=== PATIENT | female | born 1940 | race Caucasian/White ===

== ENCOUNTER 2016-04-01 15:40 | Inpatient (IN) | payer MEDICARE ==
[2016-04-01] MEDS ORDERED: MORPHINE SULFATE 2 MG/ML SYRINGE IVP STA (16:23)
[2016-04-01] MEDS ORDERED: ONDANSETRON 4 MG/2 ML VIAL IVP STA (16:23)
[2016-04-01] MEDS ORDERED: SODIUM CHLORIDE 0.9% 500 ML IV STA (16:23)
--- NOTE | 2016-04-01 16:27 | ED ---
Abdominal Pain HPI - General Chief Complaint: Abdominal Pain Stated Complaint: Abdominal pain Time Seen by Provider: 04/01/16 16:13 Source: patient, RN notes reviewed Mode of arrival: wheelchair Limitations: no limitations - History of Present Illness Initial Comments: 75-year-old female presents emergency Department chief complaint of gastric, right upper quadrant abdominal pain started last night. Patient states this is severe 9/10 pain. Patient states it radiates to her back. Patient states she' s never had in the past. Patient did admit to having history kidney stones no she denies any abdominal surgeries. Patient states she's had some nausea, vomiting. Denies any change in bowel habits including diarrhea or constipation. Denies any melena or hematochezia. Patient states that that nothing makes the pain feel better or worse. She denies any dysuria, hematuria or urinary frequency. Patient denies any fever or chills. Patient states that she did fall on the bathroom and emergency waiting room and states that she struck her left side. Patient is complaining of left rib pain. Denies any loss conscious, headache, neck pain or any dizziness. Patient has any blurred vision or any facial pain. - Related Data Home Medications Medication Instructions Recorded Confirmed Montelukast Sodium [Singulair] 10 mg PO DAILY 12/12/13 12/13/13 Potassium Chloride [Klor-Con 10] 10 meq PO BID 12/12/13 12/13/13 Ubidecarenone [Coq-10] 60 mg PO DAILY 12/12/13 12/13/13 Previous Rx's Medication Instructions Recorded Amoxic-Pot Clav 875-125Mg 1 each PO Q12HR #10 tab 12/24/13 [Augmentin 875-125] Budesonide [Pulmicort] 0.5 mg INHALATION RT-BID #60 nebu 12/24/13 Diltiazem Cd [Cardizem CD] 180 mg PO DAILY #30 cap.er.24h 12/24/13 Furosemide [Lasix] 40 mg PO DAILY #30 tab 12/24/13 Ipratropium/Albuterol Sulfate 3 ml INHALATION QID #100 neb 12/24/13 [Duoneb 0.5 mg-3 mg/3 ml Soln] Nicotine 14Mg/24Hr Patch [Habitrol] 1 patch TRANSDERM Q24H #21 patch 12/24/13 predniSONE 20 mg PO DIRECTED #20 tab 12/24/13 Allergies Allergy/AdvReac Type Severity Reaction Status Date / Time hydromorphone HCl Allergy Unknown Verified 04/01/16 15:58 [From Dilaudid] iodine Allergy Swelling Verified 04/01/16 15:58 metolazone Allergy Unknown Verified 04/01/16 15:58 shellfish derived Allergy Unknown Verified 04/01/16 15:58 Review of Systems ROS Statement: Those systems with pertinent positive or pertinent negative responses have been documented in the HPI. ROS Other: All systems not noted in ROS Statement are negative. Past Medical History Past Medical History: Atrial Flutter, COPD, Hypertension, Osteoarthritis (OA), Pneumonia, Seizure Disorder Additional Past Medical History / Comment(s): home O2 dependent History of Any Multi-Drug Resistant Organisms: None Reported Past Surgical History: No Surgical Hx Reported Past Psychological History: No Psychological Hx Reported Smoking Status: Former smoker Past Alcohol Use History: Occasional Past Drug Use History: None Reported General Exam Limitations: no limitations General appearance: alert, in no apparent distress Head exam: Present: atraumatic, normocephalic, normal inspection Eye exam: Present: normal appearance, PERRL, EOMI. Absent: scleral icterus, conjunctival injection, periorbital swelling ENT exam: Present: normal exam, normal oropharynx, mucous membranes moist, TM's normal bilaterally Neck exam: Present: normal inspection, full ROM. Absent: tenderness, meningismus, lymphadenopathy Respiratory exam: Present: chest wall tenderness (Moderate left rib tenderness) , decreased breath sounds, other (Nasal cannula in place). Absent: normal lung sounds bilaterally, respiratory distress, wheezes, rales, rhonchi, stridor Cardiovascular Exam: Present: regular rate, normal rhythm, normal heart sounds. Absent: systolic murmur, diastolic murmur, rubs, gallop, clicks GI/Abdominal exam: Present: soft, tenderness (Moderate to severe right upper quadrant tenderness), normal bowel sounds. Absent: distended, guarding, rebound , rigid Back exam: Absent: CVA tenderness (R), CVA tenderness (L) Neurological exam: Present: alert, oriented X3, CN II-XII intact, reflexes normal, other (Finger to nose intact bilaterally without overshooting.). Absent : motor sensory deficit Skin exam: Present: warm, dry, intact, normal color. Absent: rash Course Vital Signs 04/01/16 04/01/16 04/01/16 15:55 18:35 18:45 Temperature 97.9 F Pulse Rate 93 121 H Respiratory 20 20 Rate Blood Pressure 136/97 165/74 O2 Sat by Pulse 92 L 70 L 77 L Oximetry 04/01/16 04/01/16 04/01/16 18:50 18:54 19:01 Temperature Pulse Rate 113 H Respiratory 18 Rate Blood Pressure O2 Sat by Pulse 72 L 81 L 95 Oximetry 04/01/16 19:03 Temperature Pulse Rate 115 H Respiratory 18 Rate Blood Pressure O2 Sat by Pulse 96 Oximetry - Reevaluation(s) Reevaluation #1: 04/01/16 18:38 Patient was reevaluated at this time patient has having shallow breathing with mild decrease in her pulse ox. Patient has had problems with narcotics in the past. Patient we given 0.2 of Narcan. Reevaluation #2: 04/01/16 20:03 Patient's is arousable at this time. Patient oxygen saturation has improved. Patient is coherent. Patient will be admitted to the hospital. Family was updated. Medical Decision Making - Lab Data Result diagrams: 04/01/16 17:58 04/01/16 17:58 Lab Results 04/01/16 04/01/16 04/01/16 Range/Units 16:52 17:58 17:58 WBC 15.0 H (3.8-10.6) k/uL RBC 5.40 (3.80-5.40) m/uL Hgb 14.9 (11.4-16.0) gm/dL Hct 49.0 H (34.0-46.0) % MCV 90.6 (80.0-100.0) fL MCH 27.6 (25.0-35.0) pg MCHC 30.4 L (31.0-37.0) g/dL RDW 15.0 (11.5-15.5) % Plt Count 231 (150-450) k/uL Neutrophils % 89 % Lymphocytes % 4 % Monocytes % 5 % Eosinophils % 1 % Basophils % 0 % Neutrophils # 13.3 H (1.3-7.7) k/uL Lymphocytes # 0.6 L (1.0-4.8) k/uL Monocytes # 0.7 (0-1.0) k/uL Eosinophils # 0.2 (0-0.7) k/uL Basophils # 0.0 (0-0.2) k/uL Hypochromasia Marked PT 10.0 (9.0-12.0) sec INR 1.0 (<1.1) APTT 22.8 (22.0-30.0) sec Sodium (137-145) mmol/L Potassium (3.5-5.1) mmol/L Chloride (98-107) mmol/L Carbon Dioxide (22-30) mmol/L Anion Gap mmol/L BUN (7-17) mg/dL Creatinine (0.52-1.04) mg/dL Est GFR (MDRD) Af Amer (>60 ml/min/1.73 sqM) Est GFR (MDRD) Non-Af (>60 ml/min/1.73 sqM) Glucose (74-99) mg/dL Calcium (8.4-10.2) mg/dL Total Bilirubin (0.2-1.3) mg/dL AST (14-36) U/L ALT (9-52) U/L Alkaline Phosphatase (38-126) U/L Total Protein (6.3-8.2) g/dL Albumin (3.5-5.0) g/dL Amylase (30-110) U/L Lipase (23-300) U/L Urine Color Light Yellow Urine Appearance Clear (Clear) Urine pH 7.5 (5.0-8.0) Ur Specific [place] 1.006 (1.001-1.035) Urine Protein 2+ H (Negative) Urine Glucose (UA) Negative (Negative) Urine Ketones Negative (Negative) Urine Blood Trace H (Negative) Urine Nitrate Negative (Negative) Urine Bilirubin Negative (Negative) Urine Urobilinogen <2.0 (<2.0) mg/dL Ur Leukocyte Esterase Negative (Negative) Urine RBC 1 (0-5) /hpf Urine WBC 1 (0-5) /hpf Ur Squamous Epith Cells 1 (0-4) /hpf Hyaline Casts 1 (0-2) /lpf Urine Mucus Rare H (None) /hpf 04/01/16 Range/Units 17:58 WBC (3.8-10.6) k/uL RBC (3.80-5.40) m/uL Hgb (11.4-16.0) gm/dL Hct (34.0-46.0) % MCV (80.0-100.0) fL MCH (25.0-35.0) pg MCHC (31.0-37.0) g/dL RDW (11.5-15.5) % Plt Count (150-450) k/uL Neutrophils % % Lymphocytes % % Monocytes % % Eosinophils % % Basophils % % Neutrophils # (1.3-7.7) k/uL Lymphocytes # (1.0-4.8) k/uL Monocytes # (0-1.0) k/uL Eosinophils # (0-0.7) k/uL Basophils # (0-0.2) k/uL Hypochromasia PT (9.0-12.0) sec INR (<1.1) APTT (22.0-30.0) sec Sodium 143 (137-145) mmol/L Potassium 4.0 (3.5-5.1) mmol/L Chloride 95 L (98-107) mmol/L Carbon Dioxide 36 H (22-30) mmol/L Anion Gap 12 mmol/L BUN 11 (7-17) mg/dL Creatinine 0.66 (0.52-1.04) mg/dL Est GFR (MDRD) Af Amer >60 (>60 ml/min/1.73 sqM) Est GFR (MDRD) Non-Af >60 (>60 ml/min/1.73 sqM) Glucose 133 H (74-99) mg/dL Calcium 8.7 (8.4-10.2) mg/dL Total Bilirubin 0.9 (0.2-1.3) mg/dL AST 34 (14-36) U/L ALT 31 (9-52) U/L Alkaline Phosphatase 110 (38-126) U/L Total Protein 7.8 (6.3-8.2) g/dL Albumin 3.9 (3.5-5.0) g/dL Amylase 56 (30-110) U/L Lipase 57 (23-300) U/L Urine Color Urine Appearance (Clear) Urine pH (5.0-8.0) Ur Specific [place] (1.001-1.035) Urine Protein (Negative) Urine Glucose (UA) (Negative) Urine Ketones (Negative) Urine Blood (Negative) Urine Nitrate (Negative) Urine Bilirubin (Negative) Urine Urobilinogen (<2.0) mg/dL Ur Leukocyte Esterase (Negative) Urine RBC (0-5) /hpf Urine WBC (0-5) /hpf Ur Squamous Epith Cells (0-4) /hpf Hyaline Casts (0-2) /lpf Urine Mucus (None) /hpf Disposition Clinical Impression: Cholelithiasis, COPD (chronic obstructive pulmonary disease), Abdominal pain Disposition: ADMITTED IP TO THIS HOSP
[2016-04-01 17:03] LABS: Appearance,Urine Clear (Clear); Bilirubin,Urine Negative (Negative); Glucose,Urine (UA) Negative (Negative); Ketones,Urine Negative (Negative); Leukocyte Esterase,Urine Negative (Negative); Mucus,Urine Rare /hpf; Nitrite,Urine Negative (Negative); PH, Urine 7.5 (5.0-8.0); Particle Count 1131; Protein,Urine 2+ (Negative); RBC,Urine 1 /hpf (0-5); Specific Gravity,Urine 1.006 (1.001-1.035); Squamous Epithelial Cell,Urine 1 /hpf (0-4); UA Billing (MACRO vs. MICRO) MICRO; Urobilinogen,Urine <2.0 mg/dL (<2.0); WBC,Urine 1 /hpf (0-5)
[2016-04-01 18:11] LABS: Basophils % (A) 0 %; CHCM 29.9; Eosinophils # (A) 0.2 k/uL (0-0.7); Eosinophils % (A) 1 %; HDW 2.84; HGB 14.9 gm/dL (11.4-16.0); Hypochromasia Marked; Luc % (Auto) 1; Lymphocytes # (A) 0.6 k/uL (1.0-4.8); Lymphocytes % (A) 4 %; MCH 27.6 pg (25.0-35.0); MCHC 30.4 g/dL (31.0-37.0); MCV 90.6 fL (80.0-100.0); Mean Platelet Volume 6.7; Monocytes # (A) 0.7 k/uL (0-1.0); Monocytes % (A) 5 %; Neutrophils # (A) 13.3 k/uL (1.3-7.7); Neutrophils % (A) 89 %; WBC (Perox) 15.33
[2016-04-01 18:32] LABS: Partial Thromboplastin Time 22.8 sec (22.0-30.0)
[2016-04-01 18:35] LABS: ALT 31 U/L (9-52); AST 34 U/L (14-36); Alkaline Phosphatase 110 U/L (38-126); Amylase 56 U/L (30-110); Anion Gap 12 mmol/L; Blood Urea Nitrogen 11 mg/dL (7-17); Calcium 8.7 mg/dL (8.4-10.2); Carbon Dioxide 36 mmol/L (22-30); Chloride 95 mmol/L (98-107); Glucose 133 mg/dL (74-99); Non-African American GFR(MDRD) >60 (>60 ml/min/1.73 sqM); Sodium 143 mmol/L (137-145); Total Bilirubin 0.9 mg/dL (0.2-1.3); Total Protein 7.8 g/dL (6.3-8.2)
[2016-04-01] MEDS: NALOXONE 0.4 MG/ML 1 ML VIAL IV STA ×4 (18:38→19:00)
--- NOTE | 2016-04-01 18:51 | US ---
EXAMINATION TYPE: US abdomen limited DATE OF EXAM: 04/01/2016 6:37 PM COMPARISON: EXAMINATION TYPE: US abdomen limited DATE OF EXAM: 04/01/2016 6:37 PM COMPARISON: NONE CLINICAL HISTORY: US- Epigastric pain radiating to back.. EXAM MEASUREMENTS: Liver Length: 19.0 cm Gallbladder Wall: 0.5 cm CBD: 1.0 cm Right Kidney: 10.1 x 4.7 x 6.5 cm ANATOMY: TECHNOLOGIST IMPRESSION: *limited due to body habitus and immobility* Pancreas: enlarged Liver: Enlarged, diffusely inhomogeneous. Solid hyperechoic lesion at the inferior right lobe = 1.2 x 1.4 x 1.5 cm. ? hemangioma. Gallbladder: Multiple gallstones, thickened wall. No pericholecystic fluid is seen. Evidence for sonographic Cavazos's sign: ? ( pt. Has now been given morphine and is sleeping. CBD: enlarged Right Kidney: wnl IMPRESSION: Normal Values: Liver Length: < 16cm wnl, 17-18cm upper limits, >18cm enlarged Renal Length = 9 - 12cm GB Wall: < 0.3cm CBD: < 0.6cm or < 1.0cm post cholecystectomy IMPRESSION: There are multiple gallstones. No dilated ducts within the liver. There is a hyperechoic 1.5 cm area in the right lobe of the liver consistent with a hemangioma. No evidence of a pancreatic mass. Normal Values: Liver Length: < 16cm wnl, 17-18cm upper limits, >18cm enlarged Renal Length = 9 - 12cm GB Wall: < 0.3cm CBD: < 0.6cm or < 1.0cm post cholecystectomy Portal Vein Diameter: < 13mm Portal Vein Flow Velocity: between 16 and 40cm/sec Hepatic Artery resistive Index: between 0.55 and 0.8 Hepatic Artery Acceleration Time: <0.08 seconds Splenic Vein Diameter: < 10mm
[2016-04-01] MEDS ORDERED: NALOXONE 0.4 MG/ML 1 ML VIAL IV PRN (20:04)
[2016-04-01] MEDS ORDERED: ONDANSETRON 4 MG/2 ML VIAL IVP PRN (20:04)
[2016-04-01] MEDS ORDERED: PIPERACILLIN-TAZOBACTAM 3.375 GM in DEXTROSE/WATER 1 50ML.BAG IVPB STA (20:06)
[2016-04-01] MEDS ORDERED: FUROSEMIDE 10 MG/ML 4 ML VIAL IV STA (20:07)
--- NOTE | 2016-04-01 20:20 | XR ---
EXAMINATION TYPE: XR ribs LT w pa chest xray DATE OF EXAM: 04/01/2016 7:56 PM COMPARISON: 12/18/2013 HISTORY: Left rib pain after a fall TECHNIQUE: 5 views FINDINGS: Heart is enlarged. There is pulmonary vascular congestion. There is no pneumothorax. Exam i s limited by the obesity. There appears to be a nondisplaced fracture of an anterior lower left rib, approximately the ninth rib. IMPRESSION: Congestive heart failure. Nondisplaced left rib fracture that is probably the ninth rib. No pneumothorax. The heart failure is new compared to last exam.
--- NOTE | 2016-04-01 20:21 | XR ---
EXAMINATION TYPE: XR KUB DATE OF EXAM: 04/01/2016 7:56 PM COMPARISON: NONE HISTORY: Abdominal pain after a fall TECHNIQUE: 2 views FINDINGS: There is no sign of intestinal obstruction or pneumoperitoneum. Fecal pattern is normal. Th ere is no sign of a mass. There are infiltrates at the lung bases with cardiomegaly. IMPRESSION: Nonacute abdomen. Cardiomegaly with basilar pulmonary infiltrates.
--- NOTE | 2016-04-01 21:30 | CT ---
EXAMINATION TYPE: CT brain wo con DATE OF EXAM: 04/01/2016 9:15 PM COMPARISON: NONE HISTORY: Fall today with head injury. CT DLP: 1023.50 mGycm Automated exposure control for dose reduction was used. FINDINGS: The ventricles have normal size. There is no mass effect or midline shift. There is no sign of intrac ranial hemorrhage. The calvarium is intact. IMPRESSION: Negative unenhanced head CT scan.
[2016-04-01 22:37] VITALS: BMI 38.2
[2016-04-01] MEDS: SODIUM CHLORIDE 0.9% 1,000 ML IV SCH (23:36)
[2016-04-02 01:02] LABS: Glucose,Whole Blood 163 mg/dL (75-99)
[2016-04-02 02:37] LABS: Creatine Kinase MB 4.7 ng/mL (0.0-2.4)
[2016-04-02 02:38] LABS: Troponin I 0.254 ng/mL (0.000-0.034)
[2016-04-02 03:25] LABS: ABG PH 7.07 (7.35-7.45)
[2016-04-02 03:26] LABS: ABG Base Excess 4.6 mmol/L; ABG HCO3 34 mmol/L (21-25); ABG PCO2 123 mmHg (35-45); ABG PO2 119 mmHg (83-108); ABG TCO2 38 mmol/L (19-24)
[2016-04-02 03:32] LABS: ABG PCO2 102 mmHg (35-45); ABG PH 7.16 (7.35-7.45)
[2016-04-02 03:33] LABS: ABG HCO3 35 mmol/L (21-25); ABG PO2 90 mmHg (83-108); ABG TCO2 39 mmol/L (19-24)
[2016-04-02 04:09] LABS: Glucose,Whole Blood 167 mg/dL (75-99)
[2016-04-02 06:37] LABS: ABG Base Excess 6.3 mmol/L; ABG HCO3 33 mmol/L (21-25); ABG PCO2 76 mmHg (35-45); ABG PH 7.26 (7.35-7.45); ABG PO2 61 mmHg (83-108); ABG TCO2 35 mmol/L (19-24)
--- NOTE | 2016-04-02 07:42 | XR ---
EXAMINATION TYPE: XR chest 1V portable DATE OF EXAM: 04/02/2016 6:06 AM Comparison: 04/01/2016 Clinical History: 75-year-old female ICU follow-up Findings: Heart remains mildly enlarged. Atherosclerotic arch calcifications. Diffuse interstitial opacities pe rsist. Left base is underpenetrated and suboptimally evaluated. Impression: Findings suggest continued CHF with interstitial pulmonary edema. The left base is underpenetrated an d not optimally assessed.
--- NOTE | 2016-04-02 09:16 | P.GSCN ---
History of Present Illness Consult date: 04/02/16 History of present illness: Patient is a 75-year-old white female who presented yesterday to the emergency primary with a complaint of right upper quadrant abdominal pain. The patient fell in the emergency room to the bathroom at this time she fell and hit her left side and the median complain of pain in the left side. She was given pain medication after which she became lethargic and despite Narcan required BiPAP and was admitted to the intensive care unit. The patient today is more responsive and continues to complain of some mild right upper quadrant discomfort. She states that the pain started after she had eaten several pieces of bread. The patient had an ultrasound performed which revealed gallstones. Her liver function studies are within normal limits. She does have some leukocytosis. Review of Systems - Constitutional Reports as per HPI - Cardiovascular Reports as per HPI - Respiratory Respiratory Comment(s): Prior smoker COPD Home oxygen dependent - Gastrointestinal Reports as per HPI - Genitourinary Genitourinary Comment(s): Prior history of kidney stone Past Medical History Past Medical History: Atrial Flutter, COPD, Hypertension, Osteoarthritis (OA), Pneumonia Additional Past Medical History / Comment(s): home O2 dependent. 3 liters " Stats mid to higher 80's at home" History of Any Multi-Drug Resistant Organisms: None Reported Past Surgical History: No Surgical Hx Reported Additional Past Anesthesia/Blood Transfusion Reaction / Comm: No blood, anesthesia before when " teeth were pulled" per family Past Psychological History: No Psychological Hx Reported Smoking Status: Former smoker Past Alcohol Use History: Occasional Past Drug Use History: None Reported Medications and Allergies Home Medications Medication Instructions Recorded Confirmed Type Montelukast Sodium [Singulair] 10 mg PO DAILY 12/12/13 04/01/16 History Potassium Chloride [Klor-Con 10] 10 meq PO BID 12/12/13 04/01/16 History Ubidecarenone [Coq-10] 60 mg PO DAILY 12/12/13 04/01/16 History Allergies Allergy/AdvReac Type Severity Reaction Status Date / Time hydromorphone HCl Allergy Unknown Verified 04/01/16 15:58 [From Dilaudid] iodine Allergy Swelling Verified 04/01/16 15:58 metolazone Allergy Unknown Verified 04/01/16 15:58 morphine Allergy Dyspnea Verified 04/01/16 20:06 shellfish derived Allergy Unknown Verified 04/01/16 15:58 Surgical - Exam Vital Signs Temp Pulse Resp BP Pulse Ox 97.9 F 93 20 136/97 92 L 04/01/16 15:55 04/01/16 15:55 04/01/16 15:55 04/01/16 15:55 04/01/16 15:55 - General obese - Respiratory Decreased breath sounds at bases Patient on BiPAP - Cardiovascular Rhythm: regular Heart Sounds: normal: S1, S2 - Abdomen Mild tender right upper quadrant Abdomen: soft, bowel sounds - Neurologic Somewhat lethargic Results - Labs 04/01/16 17:58 04/01/16 17:58 Abnormal Lab Results - Last 24 Hours (Table) 04/02/16 04/02/16 04/02/16 Range/Units 00:42 01:37 01:37 D-Dimer 7.23 H (<0.60) mg/L FEU ABG pH (7.35-7.45) ABG pCO2 (35-45) mmHg ABG pO2 (83-108) mmHg ABG HCO3 (21-25) mmol/L ABG Total CO2 (19-24) mmol/L ABG O2 Saturation (94-97) % POC Glucose (mg/dL) 163 H (75-99) mg/dL Total Creatine Kinase 188 H (30-135) U/L CK-MB (CK-2) 4.7 H* (0.0-2.4) ng/mL Troponin I 0.254 H* (0.000-0.034) ng/mL 04/02/16 04/02/16 04/02/16 Range/Units 02:10 03:07 04:08 D-Dimer (<0.60) mg/L FEU ABG pH 7.07 L* 7.16 L* (7.35-7.45) ABG pCO2 123 H* 102 H* (35-45) mmHg ABG pO2 119 H (83-108) mmHg ABG HCO3 34 H 35 H (21-25) mmol/L ABG Total CO2 38 H 39 H (19-24) mmol/L ABG O2 Saturation 93.0 L (94-97) % POC Glucose (mg/dL) 167 H (75-99) mg/dL Total Creatine Kinase (30-135) U/L CK-MB (CK-2) (0.0-2.4) ng/mL Troponin I (0.000-0.034) ng/mL 04/02/16 Range/Units 06:30 D-Dimer (<0.60) mg/L FEU ABG pH 7.26 L (7.35-7.45) ABG pCO2 76 H* (35-45) mmHg ABG pO2 61 L (83-108) mmHg ABG HCO3 33 H (21-25) mmol/L ABG Total CO2 35 H (19-24) mmol/L ABG O2 Saturation 86.0 L (94-97) % POC Glucose (mg/dL) (75-99) mg/dL Total Creatine Kinase (30-135) U/L CK-MB (CK-2) (0.0-2.4) ng/mL Troponin I (0.000-0.034) ng/mL - Imaging US - abdomen: report reviewed Assessment and Plan Plan: Impression/plan: 1. Left rib fracture nondisplaced no pneumothorax 2. COPD 3. Biliary colic 4. Bibasilar pulmonary infiltrates 5. Negative unenhanced head CT 6. Very sensitive to narcotic medications Plan: 1. Medical stabilization 2. Probable laparoscopic possible open cholecystectomy in near future
--- NOTE | 2016-04-02 09:18 | P.PN ---
Progress Note - Text Should be noted that additional evaluation of the patient's studies reveal that she does have a left rib fracture on the ninth rib Additionally her d-dimer is elevated at 7.23 Her ABG pH was low at 7.07 is now 7.26 CK-MB is 4.7 Troponin 0.254 Operative intervention is not urgent, she will be on standby and await medical clearance.
[2016-04-02] MEDS ORDERED: IPRATROPIUM-ALBUTEROL 3 ML NEB INHALATION PRN (14:30)
--- NOTE | 2016-04-02 14:53 | P.CNPUL ---
History of Present Illness Consult date: 04/02/16 Reason for consult: hypoxemia Chief complaint: Right upper quadrant abdominal pain, altered mental status History of present illness: This is a 75-year-old female who presented to the emergency department complaining of right upper quadrant abdominal pain. The pain apparently started 2 nights ago. She states it was radiating to her back. The patient was given pain medicine in the emergency department and became confused. She did have a fall in the emergency waiting room and hit her left side. The patient was found to have a left rib fracture. The patient was given multiple doses of Narcan. She was found to have respiratory acidosis and placed on BiPAP. The patient's mental status is improving. The patient states that she saw Dr. GILBERT Romano in the office "a while ago." She states she was told she has COPD and was started on nebulizer and inhalers. She does not know which inhalers she uses. The patient states that she hasn't been to a doctor in a long time. She states she doesn't go to the doctor unless she is very sick. The patient states that she has been told in the past that she might have obstructive sleep apnea but has never been tested. She denies fevers and chills at home. She denies shortness of breath. The patient also has a history of atrial fibrillation. Per Dr. Romano's consult from 2013 the patient had a pulmonary function test in 2006 which showed an FEV1 of 1 L. She also had an elevated IgE level of 3310. The patient is also a former smoker. She states she quit in her 60s and started smoking when she was 17 years old. She used to smoke 3 packs per day. Review of Systems All systems: negative Past Medical History Past Medical History: Atrial Flutter, COPD, Hypertension, Osteoarthritis (OA), Pneumonia Additional Past Medical History / Comment(s): home O2 dependent. 3 liters " Stats mid to higher 80's at home" History of Any Multi-Drug Resistant Organisms: None Reported Past Surgical History: No Surgical Hx Reported Additional Past Anesthesia/Blood Transfusion Reaction / Comment(s): No blood, anesthesia before when " teeth were pulled" per family Past Psychological History: No Psychological Hx Reported Smoking Status: Former smoker Past Alcohol Use History: Occasional Past Drug Use History: None Reported Medications and Allergies Home Medications Medication Instructions Recorded Confirmed Type Montelukast Sodium [Singulair] 10 mg PO DAILY 12/12/13 04/02/16 History Potassium Chloride [Klor-Con 10] 10 meq PO BID 12/12/13 04/02/16 History Ubidecarenone [Coq-10] 100 mg PO DAILY 12/12/13 04/02/16 History Allergies Allergy/AdvReac Type Severity Reaction Status Date / Time hydromorphone HCl Allergy Unknown Verified 04/02/16 13:05 [From Dilaudid] iodine Allergy Swelling Verified 04/02/16 13:05 metolazone Allergy Unknown Verified 04/02/16 13:05 morphine Allergy Dyspnea Verified 04/02/16 13:05 shellfish derived Allergy Unknown Verified 04/02/16 13:05 Physical Exam Osteopathic Statement: *. No significant issues noted on an osteopathic structural exam other than those noted in the History and Physical/Consult. Vitals: Vital Signs Temp Pulse Pulse Pulse Resp BP BP 04/02/16 12:00 20 04/02/16 11:10 75 106/53 04/02/16 11:00 75 106/53 04/02/16 10:50 75 106/53 04/02/16 10:40 73 117/63 04/02/16 10:30 78 117/63 04/02/16 10:20 75 117/63 04/02/16 10:10 74 117/63 04/02/16 10:00 71 117/63 04/02/16 09:50 74 117/63 04/02/16 09:40 72 109/48 04/02/16 09:30 68 109/48 04/02/16 09:20 68 109/48 04/02/16 09:10 69 109/48 04/02/16 09:00 68 109/48 04/02/16 08:50 70 109/48 04/02/16 08:40 76 129/61 04/02/16 08:30 71 129/61 04/02/16 08:20 70 129/61 04/02/16 08:10 72 129/61 04/02/16 08:00 97.4 F L 77 20 129/61 04/02/16 07:50 72 129/61 04/02/16 07:40 75 116/55 04/02/16 07:30 75 116/55 04/02/16 07:20 72 116/55 04/02/16 07:10 74 116/55 04/02/16 07:00 75 116/55 04/02/16 06:50 75 116/55 04/02/16 06:40 74 117/50 04/02/16 06:30 74 117/50 04/02/16 06:20 75 117/50 04/02/16 06:10 72 117/50 04/02/16 06:00 72 117/50 04/02/16 05:50 70 117/50 04/02/16 05:40 70 127/61 04/02/16 05:30 69 127/61 04/02/16 05:20 69 127/61 04/02/16 05:10 69 127/61 04/02/16 05:00 71 125/58 04/02/16 04:50 73 132/65 04/02/16 04:40 72 04/02/16 04:30 77 04/02/16 04:27 72 04/02/16 04:00 20 04/02/16 00:00 98 F 85 20 109/51 04/01/16 22:28 98.3 F 86 22 129/61 04/01/16 21:30 86 85 20 04/01/16 20:32 107 H 18 158/86 Pulse Ox 04/02/16 12:00 04/02/16 11:10 95 04/02/16 11:00 96 04/02/16 10:50 91 L 04/02/16 10:40 91 L 04/02/16 10:30 90 L 04/02/16 10:20 95 04/02/16 10:10 93 L 04/02/16 10:00 90 L 04/02/16 09:50 91 L 04/02/16 09:40 93 L 04/02/16 09:30 95 04/02/16 09:20 95 04/02/16 09:10 94 L 04/02/16 09:00 96 04/02/16 08:50 94 L 04/02/16 08:40 93 L 04/02/16 08:30 92 L 04/02/16 08:20 93 L 04/02/16 08:10 88 L 04/02/16 08:00 91 L 04/02/16 07:50 89 L 04/02/16 07:40 90 L 04/02/16 07:30 95 04/02/16 07:20 92 L 04/02/16 07:10 88 L 04/02/16 07:00 89 L 04/02/16 06:50 91 L 04/02/16 06:40 89 L 04/02/16 06:30 89 L 04/02/16 06:20 91 L 04/02/16 06:10 91 L 04/02/16 06:00 90 L 04/02/16 05:50 91 L 04/02/16 05:40 91 L 04/02/16 05:30 90 L 04/02/16 05:20 91 L 04/02/16 05:10 90 L 04/02/16 05:00 94 L 04/02/16 04:50 90 L 04/02/16 04:40 90 L 04/02/16 04:30 90 L 04/02/16 04:27 90 L 04/02/16 04:00 04/02/16 00:00 87 L 04/01/16 22:28 92 L 04/01/16 21:30 04/01/16 20:32 93 L Intake and Output 04/01/16 04/02/16 04/02/16 22:59 06:59 14:59 Intake Total 200 600 Output Total 185 175 Balance 15 425 Intake: IV 200 600 Sodium Chloride 0.9% 1, 200 600 000 ml @ 20 mls/hr IV . Q24H [facility] Rx#:[id number] Output: Urine 185 175 Other: Weight 104.326 kg Gen.: Patient is arousable but still somnolent, she is on BiPAP, poor historian , morbidly obese Cardiovascular: Regular rate and rhythm, S1/S2 Lungs: Diminished breath sounds bilaterally Abdomen: Soft and nondistended, tender to palpation in the right upper quadrant with positive Cavazos sign, positive bowel sounds Extremities: 1+ pitting edema Results - Laboratory Findings CBC and BMP: 04/01/16 17:58 04/01/16 17:58 ABG ABG pH 7.26 (7.35-7.45) L 04/02/16 06:30 ABG pCO2 76 mmHg (35-45) H* 04/02/16 06:30 ABG pO2 61 mmHg (83-108) L 04/02/16 06:30 ABG O2 Saturation 86.0 % (94-97) L 04/02/16 06:30 PT/INR, D-dimer PT 10.0 sec (9.0-12.0) 04/01/16 17:58 INR 1.0 (<1.1) 04/01/16 17:58 D-Dimer 7.23 mg/L FEU (<0.60) H 04/02/16 01:37 Abnormal lab findings: Abnormal Labs 04/02/16 04/02/16 04/02/16 00:42 01:37 01:37 D-Dimer 7.23 H ABG pH ABG pCO2 ABG pO2 ABG HCO3 ABG Total CO2 ABG O2 Saturation POC Glucose (mg/dL) 163 H Total Creatine Kinase 188 H CK-MB (CK-2) 4.7 H* Troponin I 0.254 H* 04/02/16 04/02/16 04/02/16 02:10 03:07 04:08 D-Dimer ABG pH 7.07 L* 7.16 L* ABG pCO2 123 H* 102 H* ABG pO2 119 H ABG HCO3 34 H 35 H ABG Total CO2 38 H 39 H ABG O2 Saturation 93.0 L POC Glucose (mg/dL) 167 H Total Creatine Kinase CK-MB (CK-2) Troponin I 04/02/16 06:30 D-Dimer ABG pH 7.26 L ABG pCO2 76 H* ABG pO2 61 L ABG HCO3 33 H ABG Total CO2 35 H ABG O2 Saturation 86.0 L POC Glucose (mg/dL) Total Creatine Kinase CK-MB (CK-2) Troponin I - Diagnostic Findings Chest x-ray: report reviewed, image reviewed Assessment and Plan Plan: Acute hypoxic and hypercapnic respiratory failure Acute on chronic Respiratory acidosis Sepsis with SIRS Acute exacerbation of CHF, likely diastolic, ejection fraction was 55-60% in 2014 NSTEMI Mild pulmonary hypertension on echocardiogram from 2013 Right upper quadrant abdominal pain Status post fall with left nondisplaced rib fracture Acute exacerbation of COPD and asthma, ALLERGIC Biliary colic Morbid obesity, suspect underlying EZEKIEL/OHS History of paroxysmal atrial fibrillation, now normal sinus rhythm Hyperglycemia Continue BiPAP Initiate Lasix 40 mg every 12 hours Check echocardiogram Blood, urine, sputum cultures Initiate Pulmicort and DuoNeb's Check LE dopplers Initiate IV Solu-Medrol Surgery recommendations, plan for cholecystectomy once patient is medically stable Avoid sedative medications including narcotics Will begin Unasyn I's and O's and daily weights Blood sugar control GI and DVT prophylaxis
[2016-04-02] MEDS: IPRATROPIUM-ALBUTEROL 3 ML NEB INHALATION SCH ×3 (16:10→23:01)
[2016-04-02] MEDS: PANTOPRAZOLE 40 MG/10 ML VIAL IVP SCH (17:06)
[2016-04-02] MEDS: AMPICILLIN-SULBACTAM 1.5 GM in SODIUM CHLORIDE 0.9% 50 ML IVPB SCH (17:06)
[2016-04-02] MEDS: HEPARIN SODIUM,PORCINE 5,000 UNIT/ML 1 ML VIAL SQ SCH (17:07)
[2016-04-02] MEDS: methylPREDNISolone SOD SUCCI 40 MG/ML 1 ML VIAL IV SCH (17:07)
--- NOTE | 2016-04-02 17:09 | CONS ---
DATE OF CONSULTATION: Mrs. Dennison is a 75-year-old female with known history of severe chronic obstructive lung disease on home O2 who presented with abdominal discomfort and was found to have cholecystitis. Cardiology consultation was requested for further cardiac evaluation. The patient has according to her, no prior documented history of coronary artery disease or congestive heart failure. She was in the hospital in December 14 with respiratory failure. At that time had paroxysmal atrial fibrillation. She had an echocardiogram at that time that revealed preserved left ventricular size and systolic function. Her coronary risk factors are remarkable for remote history of smoking and a history of hypertension. She is not hyperlipidemic or a diabetic. She denies any chest pain. She denies any peripheral edema. She sleeps in the recliner. She has no PND. Her medications at home include: 1. Coenzyme Q10. 2. Potassium. 3. Pulmicort. 4. Singulair. 5. DuoNeb. 6. Lasix 40 mg daily. 7. Cardizem CD 180 mg daily. REVIEW OF SYSTEMS: RESPIRATORY SYSTEM: She has chronic dyspnea on exertion with chronic oxygen use. GI system: She had the nausea and abdominal pain, but no recent GI bleeding. system: No dysuria or hematuria. Nervous system: No history of stroke or seizure. The patient yesterday became more obtunded after receiving narcotics and being on a nonrebreather. She is on the BiPAP at this time he is feeling better. She was quite acidotic yesterday at that time with a pH down to 7.07. Cardiology consultation was requested because of the troponin is 0.254. PHYSICAL EXAMINATION: She is a 75-year-old female on the BIPAP, alert, in no apparent distress. Blood pressure 106/50 with a heart rate 70. HEAD: Normocephalic. EYES: Sclerae anicteric. NECK: Good upstroke. No bruit. LUNGS: Clear to auscultation. There was decreased air exchange. HEART: Regular rate rhythm. S1, S2, no S3, with systolic murmur. No diastolic murmur. No rub. ABDOMEN: Soft. Right upper quadrant tenderness. Positive bowel sounds. No rebound. EXTREMITIES: No edema. Lab data revealed a white blood cell of 15,000, hemoglobin of 14.9. BUN and creatinine 11 and 0.66. Her NT-proBNP is 1020. Subsequently, her pH was down to 7.07, back up this morning 7.26. Abdominal ultrasound revealed evidence of multiple gallstones. EKG reveals sinus mechanism with first-degree AV block and poor R wave progression. IMPRESSION: 1. Acute cholecystitis. 2. Severe chronic obstructive lung disease with evidence of hypercapnia improved. 3. Minimal elevation of troponin could be exacerbated by the hypoxemia, no evidence to suggest primary cardiac issue. 4. Hypertension. 5. Severe chronic obstructive lung disease. 6. Obesity. 7. Prior history of paroxysmal atrial fibrillation, remains in normal sinus rhythm. RECOMMENDATIONS: From the cardiac standpoint, I will continue present therapy. Will follow serial enzymes. I will obtain echocardiogram with Doppler. Depending on her blood pressure, further recommendation will be made. Thank you for this consult. We will follow with you.
[2016-04-02] MEDS: INSULIN LISPRO (humaLOG) 300 UNIT/3 ML VIAL SQ SCH ×2 (17:34→22:38)
[2016-04-02 17:35] LABS: Glucose,Whole Blood 102 mg/dL (75-99)
[2016-04-02] MEDS: BUDESONIDE 0.5 MG/2 ML NEBU INHALATION SCH (19:31)
[2016-04-02 22:04] LABS: Glucose,Whole Blood 188 mg/dL (75-99)
[2016-04-02] MEDS: FUROSEMIDE 10 MG/ML 4 ML VIAL IV SCH (22:36)
[2016-04-02] MEDS: ACETAMINOPHEN TAB 325 MG TAB PO PRN (22:36)
[2016-04-03] MEDS: IPRATROPIUM-ALBUTEROL 3 ML NEB INHALATION SCH ×6 (03:16→23:53)
[2016-04-03 05:13] LABS: Basophils % (A) 0 %; CH 26.5; CHCM 28.2; Eosinophils # (A) 0.1 k/uL (0-0.7); Eosinophils % (A) 0 %; HCT 41.8 % (34.0-46.0); HDW 2.81; HGB 12.1 gm/dL (11.4-16.0); Hypochromasia Marked; Immature Gran Flag Slight; Luc # (Auto) 0.21; Luc % (Auto) 1; Lymphocytes # (A) 0.4 k/uL (1.0-4.8); Lymphocytes % (A) 3 %; MCH 27.3 pg (25.0-35.0); MCHC 28.8 g/dL (31.0-37.0); MCV 94.6 fL (80.0-100.0); Mean Platelet Volume 6.9; Monocytes # (A) 0.6 k/uL (0-1.0); Monocytes % (A) 4 %; Neutrophils # (A) 14.1 k/uL (1.3-7.7); Neutrophils % (A) 91 %; RBC 4.42 m/uL (3.80-5.40); WBC 15.5 k/uL (3.8-10.6); WBC (Perox) 15.18
[2016-04-03 05:29] LABS: Calcium 7.3 mg/dL (8.4-10.2); Magnesium 2.1 mg/dL (1.6-2.3); Phosphorous 5.8 mg/dL (2.5-4.5); Potassium 4.5 mmol/L (3.5-5.1); Total Bilirubin 0.7 mg/dL (0.2-1.3); Total Protein 5.8 g/dL (6.3-8.2)
[2016-04-03 05:29] LABS: ABG Base Excess 4.9 mmol/L; ABG HCO3 31 mmol/L (21-25); ABG PCO2 70 mmHg (35-45); ABG PH 7.27 (7.35-7.45); ABG PO2 108 mmHg (83-108); ABG TCO2 34 mmol/L (19-24)
[2016-04-03] MEDS: SODIUM CHLORIDE 0.9% 1,000 ML IV SCH ×2 (06:32→21:33)
[2016-04-03] MEDS: AMPICILLIN-SULBACTAM 1.5 GM in SODIUM CHLORIDE 0.9% 50 ML IVPB SCH ×4 (06:32→21:32)
[2016-04-03] MEDS: HEPARIN SODIUM,PORCINE 5,000 UNIT/ML 1 ML VIAL SQ SCH ×3 (06:33→17:19)
[2016-04-03] MEDS: methylPREDNISolone SOD SUCCI 40 MG/ML 1 ML VIAL IV SCH ×3 (06:33→21:32)
[2016-04-03 07:49] LABS: Glucose,Whole Blood 149 mg/dL (75-99)
[2016-04-03] MEDS: INSULIN LISPRO (humaLOG) 300 UNIT/3 ML VIAL SQ SCH ×4 (07:50→21:33)
[2016-04-03] MEDS: PANTOPRAZOLE 40 MG/10 ML VIAL IVP SCH (07:52)
[2016-04-03] MEDS: FUROSEMIDE 10 MG/ML 4 ML VIAL IV SCH (07:52)
[2016-04-03] MEDS: BUDESONIDE 0.5 MG/2 ML NEBU INHALATION SCH ×2 (08:16→19:31)
--- NOTE | 2016-04-03 08:38 | XR ---
EXAMINATION TYPE: XR chest 1V portable DATE OF EXAM: 04/03/2016 6:45 AM Comparison: 04/02/2016 Clinical History: 75-year-old female follow-up CHF Findings: Heart remains mildly enlarged. Diffuse interstitial opacities persist. Opacity at the left cardiophre ovidio angle likely represents epicardial fat pad. Impression: Overall stable interstitial densities suggesting mild to moderate CHF.
--- NOTE | 2016-04-03 09:27 | HP ---
DATE OF ADMISSION: CHIEF COMPLAINT: Right upper quadrant abdominal pain. HISTORY OF PRESENT ILLNESS: Ms. Gomez is a 75-year-old female with known history of hypertension, osteoarthritis, and history of atrial flutter, and COPD on home oxygen dependent. Initially came to the hospital with right upper quadrant pain and epigastric pain that started last night about 9 out of 10 in severity, which is radiating to the back. Patient says that she never had that before. Patient did admit to having history of kidney stones, but denies any abdominal surgeries in the past. Otherwise, patient denied any nausea or vomiting or any change in bowel habits. Denied any melena, hematuria or hematuria. The patient was given pain medication in the form of morphine while in the ER. Following that the patient became very drowsy and patient was given several doses of Narcan. Patient had respiratory episode and acidosis and subsequently was placed on BiPAP machine and transferred to MICU. The patient's mental status is currently improving now. Patient also found to have elevated troponin level and Cardiology has been consulted. Pulmonary is following this patient. REVIEW OF SYSTEMS: CONSTITUTIONAL: No fever. No chills. RESPIRATORY: No cough or sputum production. CARDIOVASCULAR: No chest pain or short of breath. ABDOMEN: Patient does have nausea, no vomiting. Patient does have right upper quadrant abdominal pain. No diarrhea. No constipation. GENITOURINARY: Negative. ENDOCRINE: Negative. PSYCHIATRIC: Negative. SKIN: Negative. MUSCULOSKELETAL: Negative. All other 14 point review of systems negative except for above. Patient is currently more awake and oriented. PAST MEDICAL HISTORY: Atrial flutter, COPD on home oxygen, hypertension, osteoarthritis. PAST SURGICAL HISTORY: No surgical history. No psychosocial history. SOCIAL HISTORY: Patient is a former smoker, occasional alcohol use. Denied any drugs or IVDU. FAMILY HISTORY: Denied any history of hypertension or diabetes mellitus. Home medications include: 1. Singulair. 2. Potassium chloride. 3. Coenzyme Q. ALLERGIES: HYDROMORPHONE, IODINE, METOLAZONE, MORPHINE AND SHELLFISH. Other home medications include: Cardizem CD, Lasix and Norvasc as per the records. Allergies as above. PHYSICAL EXAMINATION: A 75-year-old female, lying in bed. Awake, alert, oriented x2 to 3, appears in no apparent distress at this time. VITALS: Blood pressure is 119/48, pulse is 70, respirations 16, temperature afebrile, pulse ox 94% on 3 liters nasal cannula. HEENT: Atraumatic, normocephalic. Neck is supple. No JVD. CVS: S1, S2 heard. No murmurs, no gallop, no rub. LUNGS: Bilateral air entry is present. Diminished breath sounds. Minimal expiratory wheezing. Nonlabored breathing. ABDOMEN: Soft, nontender. Bowel sounds are present. STUDENT DEVELOPMENT SPECIALIST: Awake, alert, oriented x3. No focal neurologic deficits. Cranial nerves grossly intact. EXTREMITIES: No edema. Pulses palpable bilaterally. No clubbing or cyanosis. PSYCHIATRIC: Cooperative. LABORATORY DATA: Ultrasound of the abdomen shows diffusely inhomogeneous liver. Gallbladder with multiple stones and thickened wall. No pericholecystic fluid is seen. KUB x-ray: Nonacute abdomen. Cardiomegaly with basilar pulmonary infiltrates. Ribs with chest x-ray: Congestive heart failure. Nondisplaced left rib fracture that is probably the ninth rib. CT head: Negative unenhanced CT head. WBC is 15.0, hemoglobin 14.9, platelets 231, INR 1.0. Sodium 143, potassium 4.0, chloride 95, bicarbonate 36, BUN 11, creatinine 0.6. Troponin 0.0254. NT-proBNP is 1030. Amylase and lipase not elevated. UA negative. ABG showed pH of 7.07, pCO2 of 123, pO2 of 119. IMPRESSION: 1. Acute hypoxic and hypercapnic respiratory failure. 2. Respiratory acidosis. 3. Right upper quadrant abdominal pain; possible cholecystitis. 4. Elevated troponin; possible non-ST elevated myocardial infarction. 5. Status post fall with left ninth rib fracture in the ER. 6. Chronic obstructive pulmonary disease exacerbation, home oxygen dependent. 7. History of atrial flutter. 8. Morbid obesity, body mass index of 38.3. 9. Hypertension. 10. Osteoarthritis. 11. History of seizure disorder. DISCUSSION AND PLAN: A 75-year-old female with multiple medical problems and comorbid conditions admitted to the hospital with right upper quadrant abdominal pain and found to have gallstones with possible cholecystitis. Apparently abdominal pain is resolved now. Patient had acute hypoxic and hypercapnic respiratory failure and hypoxic respiratory failure in the ER followed by pain medications. Currently the patient was placed on BiPAP machine, currently off BiPAP machine. Will be continued on home oxygen by nasal cannula. Continue with the steroids, continue breathing treatments and antibiotics. General Surgery, Pulmonary and Cardiology are following this patient. Continue the deep venous thrombosis prophylaxis. Further recommendations based on clinical course.
--- NOTE | 2016-04-03 11:45 | P.PN ---
Subjective Patient is an obese white female who was admitted to the intensive care unit following being evaluated in the emergency room. In the emergency room she presented with right upper quadrant pain however she is also somewhat unstable on her feet and fell and developed a left rib fracture. Following administration of pain medicine after which she received multiple doses of Narcan she continued to be lethargic and was admitted to the intensive care unit with respiratory acidosis and placed on BiPAP. The patient's mental status has improved dramatically. She is on home O2 and has a history of COPD. The patient also has a history of atrial fibrillation in the past. The patient was noted to have elevated cardiac enzymes and is being evaluated by cardiology as well. She is going to have an echo today. The patient today states that she was tolerating a clear liquid diet and had no abdominal pain. She was up in a chair and following movement from the chair she did complain of some discomfort somewhat diffuse in her abdomen. Objective - Vital Signs Vital signs: Vital Signs Temp 98.4 F 04/03/16 08:00 Pulse 85 04/03/16 11:31 Resp 21 04/03/16 08:00 BP 132/52 04/03/16 08:00 Pulse Ox 95 04/03/16 08:18 Intake & Output 04/02/16 04/03/16 04/03/16 18:59 06:59 18:59 Intake Total 1100 1300 400 Output Total 300 230 60 Balance 800 1070 340 Weight 111.6 kg Intake: IV 1000 1200 200 Sodium Chloride 0.9% 1, 1000 1200 200 000 ml @ 20 mls/hr IV . Q24H [facility] Rx#:[id number] Intake, IV Titration 100 50 Amount Ampicillin-Sulbactam 1.5 100 50 gm In Sodium Chloride 0.9 % 50 ml @ 100 mls/hr IVPB Q6HR [facility] Rx#:[id number] Oral 100 150 Output: Urine 300 230 60 Other: Voiding Method Indwelling Catheter Indwelling Catheter # Bowel Movements 0 - Constitutional General appearance: Present: obese - Respiratory Details: Decreased breath sounds at the bases - Cardiovascular Heart sounds: normal: S1, S2 - Gastrointestinal Gastrointestinal Comment(s): Mild diffuse tenderness No guarding or rebound Slightly increased tenderness right upper quadrant area General gastrointestinal: Present: decreased bowel sounds, distended - Psychiatric Psychiatric: Present: A&O x's 3, appropriate affect, intact judgment & insight - Labs CBC & Chem 7: 04/03/16 04:47 04/03/16 04:47 Labs: Abnormal Lab Results - Last 24 Hours (Table) 04/02/16 04/02/16 04/02/16 Range/Units 13:59 17:33 19:05 WBC (3.8-10.6) k/uL MCHC (31.0-37.0) g/dL Neutrophils # (1.3-7.7) k/uL Lymphocytes # (1.0-4.8) k/uL ABG pH (7.35-7.45) ABG pCO2 (35-45) mmHg ABG HCO3 (21-25) mmol/L ABG Total CO2 (19-24) mmol/L BUN (7-17) mg/dL Creatinine (0.52-1.04) mg/dL Glucose (74-99) mg/dL POC Glucose (mg/dL) 102 H (75-99) mg/dL Calcium (8.4-10.2) mg/dL Phosphorus (2.5-4.5) mg/dL AST (14-36) U/L Troponin I 0.406 H* 0.344 H* (0.000-0.034) ng/mL Total Protein (6.3-8.2) g/dL Albumin (3.5-5.0) g/dL 04/02/16 04/03/16 04/03/16 Range/Units 22:02 01:02 04:47 WBC (3.8-10.6) k/uL MCHC (31.0-37.0) g/dL Neutrophils # (1.3-7.7) k/uL Lymphocytes # (1.0-4.8) k/uL ABG pH (7.35-7.45) ABG pCO2 (35-45) mmHg ABG HCO3 (21-25) mmol/L ABG Total CO2 (19-24) mmol/L BUN 33 H (7-17) mg/dL Creatinine 1.90 H (0.52-1.04) mg/dL Glucose 146 H (74-99) mg/dL POC Glucose (mg/dL) 188 H (75-99) mg/dL Calcium 7.3 L (8.4-10.2) mg/dL Phosphorus 5.8 H (2.5-4.5) mg/dL AST 37 H (14-36) U/L Troponin I 0.292 H* (0.000-0.034) ng/mL Total Protein 5.8 L (6.3-8.2) g/dL Albumin 2.9 L (3.5-5.0) g/dL 04/03/16 04/03/16 04/03/16 Range/Units 04:47 05:20 07:45 WBC 15.5 H (3.8-10.6) k/uL MCHC 28.8 L (31.0-37.0) g/dL Neutrophils # 14.1 H (1.3-7.7) k/uL Lymphocytes # 0.4 L (1.0-4.8) k/uL ABG pH 7.27 L (7.35-7.45) ABG pCO2 70 H* (35-45) mmHg ABG HCO3 31 H (21-25) mmol/L ABG Total CO2 34 H (19-24) mmol/L BUN (7-17) mg/dL Creatinine (0.52-1.04) mg/dL Glucose (74-99) mg/dL POC Glucose (mg/dL) 149 H (75-99) mg/dL Calcium (8.4-10.2) mg/dL Phosphorus (2.5-4.5) mg/dL AST (14-36) U/L Troponin I (0.000-0.034) ng/mL Total Protein (6.3-8.2) g/dL Albumin (3.5-5.0) g/dL Microbiology - Last 24 Hours (Table) 04/02/16 18:00 Urine Culture - Preliminary Urine,Catheterized Assessment and Plan Plan: Impression/plan: 1. Left rib fracture nondisplaced no pneumothorax 2. COPD 3. Biliary colic 4. Bibasilar pulmonary infiltrates 5. Negative unenhanced head CT 6. Very sensitive to narcotic medications 7. Resolving respiratory acidosis 8. Cardiac evaluation for elevated cardiac enzymes Plan: 1. Medical stabilization 2. Probable laparoscopic possible open cholecystectomy in near future, this is not an acute surgical emergency
[2016-04-03 12:14] LABS: Glucose,Whole Blood 168 mg/dL (75-99)
[2016-04-03 12:19] LABS: Hemoglobin A1C 5.7 % (4.2-6.1)
--- NOTE | 2016-04-03 13:53 | P.PN ---
Subjective Principal diagnosis: Hypoxemia patient seen and examined in the ICU with nursing staff at bedside. Patient states her breathing is much better today. She is much more alert. She is oriented and fully remembers everything that happened. The patient's urine output has been marginal around 30 mL an hour. Her creatinine has increased to 1.9 today. The Lasix will be held. The patient is doing well off of BiPAP. She has been hemodynamically stable. She is complaining of continued abdominal pain in the right upper quadrant. Objective - Vital Signs Vital signs: Vital Signs Temp 98.4 F 04/03/16 08:00 Pulse 85 04/03/16 11:40 Resp 21 04/03/16 08:00 BP 132/52 04/03/16 08:00 Pulse Ox 95 04/03/16 08:18 Intake & Output 04/02/16 04/03/16 04/03/16 18:59 06:59 18:59 Intake Total 1100 1300 400 Output Total 300 230 60 Balance 800 1070 340 Weight 111.6 kg Intake: IV 1000 1200 200 Sodium Chloride 0.9% 1, 1000 1200 200 000 ml @ 20 mls/hr IV . Q24H [facility] Rx#:[id number] Intake, IV Titration 100 50 Amount Ampicillin-Sulbactam 1.5 100 50 gm In Sodium Chloride 0.9 % 50 ml @ 100 mls/hr IVPB Q6HR [facility] Rx#:[id number] Oral 100 150 Output: Urine 300 230 60 Other: Voiding Method Indwelling Catheter Indwelling Catheter # Bowel Movements 0 - Exam Gen.: patient is alert and oriented 3, no acute distress, morbidly obese Cardiovascular: Regular rate and rhythm, S1/S2 Lungs: Diminished breath sounds bilaterally Abdomen: Soft and nondistended, tender to palpation in the right upper quadrant with positive Cavazos sign, positive bowel sounds Extremities: 1+ pitting edema - Labs CBC & Chem 7: 04/03/16 04:47 04/03/16 04:47 Labs: Abnormal Lab Results - Last 24 Hours (Table) 04/02/16 04/02/16 04/02/16 Range/Units 13:59 17:33 19:05 WBC (3.8-10.6) k/uL MCHC (31.0-37.0) g/dL Neutrophils # (1.3-7.7) k/uL Lymphocytes # (1.0-4.8) k/uL ABG pH (7.35-7.45) ABG pCO2 (35-45) mmHg ABG HCO3 (21-25) mmol/L ABG Total CO2 (19-24) mmol/L BUN (7-17) mg/dL Creatinine (0.52-1.04) mg/dL Glucose (74-99) mg/dL POC Glucose (mg/dL) 102 H (75-99) mg/dL Calcium (8.4-10.2) mg/dL Phosphorus (2.5-4.5) mg/dL AST (14-36) U/L Troponin I 0.406 H* 0.344 H* (0.000-0.034) ng/mL Total Protein (6.3-8.2) g/dL Albumin (3.5-5.0) g/dL 04/02/16 04/03/16 04/03/16 Range/Units 22:02 01:02 04:47 WBC (3.8-10.6) k/uL MCHC (31.0-37.0) g/dL Neutrophils # (1.3-7.7) k/uL Lymphocytes # (1.0-4.8) k/uL ABG pH (7.35-7.45) ABG pCO2 (35-45) mmHg ABG HCO3 (21-25) mmol/L ABG Total CO2 (19-24) mmol/L BUN 33 H (7-17) mg/dL Creatinine 1.90 H (0.52-1.04) mg/dL Glucose 146 H (74-99) mg/dL POC Glucose (mg/dL) 188 H (75-99) mg/dL Calcium 7.3 L (8.4-10.2) mg/dL Phosphorus 5.8 H (2.5-4.5) mg/dL AST 37 H (14-36) U/L Troponin I 0.292 H* (0.000-0.034) ng/mL Total Protein 5.8 L (6.3-8.2) g/dL Albumin 2.9 L (3.5-5.0) g/dL 04/03/16 04/03/16 04/03/16 Range/Units 04:47 05:20 07:45 WBC 15.5 H (3.8-10.6) k/uL MCHC 28.8 L (31.0-37.0) g/dL Neutrophils # 14.1 H (1.3-7.7) k/uL Lymphocytes # 0.4 L (1.0-4.8) k/uL ABG pH 7.27 L (7.35-7.45) ABG pCO2 70 H* (35-45) mmHg ABG HCO3 31 H (21-25) mmol/L ABG Total CO2 34 H (19-24) mmol/L BUN (7-17) mg/dL Creatinine (0.52-1.04) mg/dL Glucose (74-99) mg/dL POC Glucose (mg/dL) 149 H (75-99) mg/dL Calcium (8.4-10.2) mg/dL Phosphorus (2.5-4.5) mg/dL AST (14-36) U/L Troponin I (0.000-0.034) ng/mL Total Protein (6.3-8.2) g/dL Albumin (3.5-5.0) g/dL 04/03/16 Range/Units 12:12 WBC (3.8-10.6) k/uL MCHC (31.0-37.0) g/dL Neutrophils # (1.3-7.7) k/uL Lymphocytes # (1.0-4.8) k/uL ABG pH (7.35-7.45) ABG pCO2 (35-45) mmHg ABG HCO3 (21-25) mmol/L ABG Total CO2 (19-24) mmol/L BUN (7-17) mg/dL Creatinine (0.52-1.04) mg/dL Glucose (74-99) mg/dL POC Glucose (mg/dL) 168 H (75-99) mg/dL Calcium (8.4-10.2) mg/dL Phosphorus (2.5-4.5) mg/dL AST (14-36) U/L Troponin I (0.000-0.034) ng/mL Total Protein (6.3-8.2) g/dL Albumin (3.5-5.0) g/dL Microbiology - Last 24 Hours (Table) 04/02/16 18:00 Urine Culture - Preliminary Urine,Catheterized Assessment and Plan Plan: Acute hypoxic and hypercapnic respiratory failure, patient wears 3 L nasal cannula at baseline Acute on chronic Respiratory acidosis Sepsis with SIRS Acute exacerbation of CHF, likely diastolic, ejection fraction was 55-60% in 2014 NSTEMI Mild pulmonary hypertension on echocardiogram from 2014 Right upper quadrant abdominal pain Status post fall with left nondisplaced rib fracture Acute exacerbation of COPD and asthma, ALLERGIC Biliary colic Morbid obesity, suspect underlying EZEKIEL/OHS History of paroxysmal atrial fibrillation, now normal sinus rhythm Hyperglycemia Continue BiPAP Discontinue Lasix Pending echocardiogram Blood, urine, sputum cultures pending Initiate Pulmicort and DuoNeb's Pending LE dopplers Initiate IV Solu-Medrol Surgery recommendations, plan for cholecystectomy once patient is medically stable Avoid sedative medications including narcotics Continue Unasyn I's and O's and daily weights Blood sugar control Monitor renal function GI and DVT prophylaxis Transfer out of ICU today
--- NOTE | 2016-04-03 14:15 | US ---
EXAMINATION TYPE: US venous doppler duplex LE BI DATE OF EXAM: 04/03/2016 1:24 PM COMPARISON: NONE CLINICAL HISTORY: 75-year-old female rule out DVT SIDE PERFORMED: Bilaterally TECHNOLOGIST NOTES: Morbidly obese patient with extensive leg swelling, sitting upright, unable to r ecline at all, technically difficult and limited study VESSELS IMAGED: External Iliac Vein (EIV)-not seen bilaterally Common Femoral Vein -not seen on left Deep Femoral Vein-not seen on left Greater Saphenous Vein * -not seen bilaterally Femoral Vein-unable to visualize the lower aspects for compression views Popliteal Vein Small Saphenous Vein *-not seen on left Proximal Calf Veins-not seen bilaterally (* superficial vessels) IMPRESSION: Right Leg: Appears negative for DVT in this limited evaluation. Left Leg: Appears negative for DVT in this limited evaluation. Refer above for factors limiting the exam and areas not visualized.
[2016-04-03 17:43] LABS: Glucose,Whole Blood 224 mg/dL (75-99)
[2016-04-03 19:52] LABS: Glucose,Whole Blood 240 mg/dL (75-99)
--- NOTE | 2016-04-03 23:49 | PN ---
Ms. Gomez is a 75-year-old female who presents with acute cholecystitis. She has a known history of severe chronic obstructive lung disease, history of hypertension, paroxysmal atrial fibrillation. She is feeling better today. Her breathing is better. She denies any symptoms of chest pain. She denies any dizziness. She is being transferred to the fifth floor. She continues in sinus mechanism without any tachy or bradyarrhythmia. PHYSICAL EXAMINATION: Blood pressure 149/50 with a heart in the 80s. LUNGS: With decreased air exchange. No wheezes. HEART: Regular rate rhythm. S1, S2, no S3, no rub. ABDOMEN: Soft, obese, mild tenderness. EXTREMITIES: No significant edema. Lab data revealed a BUN and creatinine of 33 and 1.9. Potassium 4.5. PH 7.27. Her pCO2 is 7 pO2 of 108. IMPRESSION: 1. Acute cholecystitis, work-up in progress. 2. Severe chronic obstructive lung disease with an episode of hypercapnia. 3. Paroxysmal atrial fibrillation. 4. History of hypertension. RECOMMENDATIONS: Will obtain echocardiogram to evaluate the left ventricular systolic function. Continue the rest of her medical regimen. Depending on her progress, further recommendation will be made.
[2016-04-04] MEDS: HEPARIN SODIUM,PORCINE 5,000 UNIT/ML 1 ML VIAL SQ SCH ×2 (00:58→08:11)
[2016-04-04] MEDS: IPRATROPIUM-ALBUTEROL 3 ML NEB INHALATION SCH ×3 (04:26→12:21)
[2016-04-04 07:24] LABS: Glucose,Whole Blood 139 mg/dL (75-99)
[2016-04-04] MEDS: BUDESONIDE 0.5 MG/2 ML NEBU INHALATION SCH (07:26)
[2016-04-04] MEDS: AMPICILLIN-SULBACTAM 1.5 GM in SODIUM CHLORIDE 0.9% 50 ML IVPB SCH (08:10)
[2016-04-04] MEDS: INSULIN LISPRO (humaLOG) 300 UNIT/3 ML VIAL SQ SCH ×2 (08:11→13:14)
[2016-04-04] MEDS: ACETAMINOPHEN TAB 325 MG TAB PO PRN (08:12)
[2016-04-04 08:21] VITALS: BP 149/76; RESP 20; TEMP 97.2
[2016-04-04] MEDS ORDERED: PANTOPRAZOLE 40 MG TABLET PO SCH (09:00)
[2016-04-04 09:02] LABS: Calcium 7.5 mg/dL (8.4-10.2); Potassium 4.4 mmol/L (3.5-5.1)
[2016-04-04 09:47] LABS: Basophils % (A) 0 %; CH 26.4; CHCM 28.1; Eosinophils % (A) 0 %; HCT 41.5 % (34.0-46.0); HDW 2.86; HGB 11.8 gm/dL (11.4-16.0); Hypochromasia Marked; Luc # (Auto) 0.12; Luc % (Auto) 1; Lymphocytes # (A) 0.4 k/uL (1.0-4.8); Lymphocytes % (A) 3 %; MCH 26.9 pg (25.0-35.0); MCHC 28.4 g/dL (31.0-37.0); MCV 94.7 fL (80.0-100.0); Mean Platelet Volume 7.2; Monocytes # (A) 0.5 k/uL (0-1.0); Monocytes % (A) 4 %; Neutrophils % (A) 92 %; RBC 4.38 m/uL (3.80-5.40); RDW 14.9 % (11.5-15.5); WBC 14.1 k/uL (3.8-10.6); WBC (Perox) 15.23
[2016-04-04] MEDS: methylPREDNISolone SOD SUCCI 40 MG/ML 1 ML VIAL IV SCH (10:52)
[2016-04-04 10:58] LABS: Glucose,Whole Blood 215 mg/dL (75-99)
--- NOTE | 2016-04-04 12:30 | ECHOF ---
Referral Reason:htn MEASUREMENTS -------- HEIGHT: 165.1 cm WEIGHT: 111.6 kg BP: 151/74 MV E Lawrence: 0.88 m/s MV DecT: 166 ms MV A Lawrence: 0.60 m/s MV E/A Ratio: 1.47 FINDINGS -------- Sinus rhythm. This was a technically difficult study with suboptimal views. Limited Study Unable to use definity due to no IV CONCLUSIONS -------- 1. Sinus rhythm. 2. This was a technically difficult study with suboptimal views. 3. Limited Study 4. Unable to use definity due to no IV 5. Unable to comment on EF due to poor images COUNTY TREASURER: Abril Baird RDCS
[2016-04-04 12:44] VITALS: PULSE 92
--- NOTE | 2016-04-04 13:34 | P.PN ---
Subjective Principal diagnosis: Abdominal pain Patient seen and examined. Patient states her breathing is much better today. The plan is for the patient to be transferred for high risk surgery to [facility]. The patient has been hemodynamically stable. Objective - Vital Signs Vital signs: Vital Signs Temp 97.2 F L 04/04/16 07:00 Pulse 92 04/04/16 12:34 Resp 20 04/04/16 07:00 BP 149/76 04/04/16 07:00 Pulse Ox 93 L 04/04/16 07:26 Intake & Output 04/03/16 04/04/16 04/04/16 18:59 06:59 18:59 Intake Total 800 150 Output Total 185 600 600 Balance 615 -450 -600 Intake: IV 600 150 Ampicillin-Sulbactam 1.5 50 gm In Sodium Chloride 0.9 % 50 ml @ 100 mls/hr IVPB Q12HR [facility] Rx#:[id number] Sodium Chloride 0.9% 1, 600 100 000 ml @ 20 mls/hr IV . Q24H [facility] Rx#:[id number] Intake, IV Titration 50 Amount Ampicillin-Sulbactam 1.5 50 gm In Sodium Chloride 0.9 % 50 ml @ 100 mls/hr IVPB Q6HR [facility] Rx#:[id number] Oral 150 Output: Urine 185 600 600 Uretheral (Marquez) 600 600 Other: Voiding Method Indwelling Catheter Indwelling Catheter Bedside Commode # Bowel Movements 0 1 - Exam Gen.: patient is alert and oriented 3, no acute distress, morbidly obese Cardiovascular: Regular rate and rhythm, S1/S2 Lungs: Diminished breath sounds bilaterally Abdomen: Soft and nondistended, tender to palpation in the right upper quadrant with positive Cavazos sign, positive bowel sounds Extremities: 1+ pitting edema - Labs CBC & Chem 7: 04/04/16 08:08 04/04/16 08:08 Labs: Abnormal Lab Results - Last 24 Hours (Table) 04/03/16 04/03/16 04/04/16 Range/Units 17:42 19:48 07:22 WBC (3.8-10.6) k/uL MCHC (31.0-37.0) g/dL Neutrophils # (1.3-7.7) k/uL Lymphocytes # (1.0-4.8) k/uL Carbon Dioxide (22-30) mmol/L BUN (7-17) mg/dL Creatinine (0.52-1.04) mg/dL Glucose (74-99) mg/dL POC Glucose (mg/dL) 224 H 240 H 139 H (75-99) mg/dL Calcium (8.4-10.2) mg/dL 04/04/16 04/04/16 04/04/16 Range/Units 08:08 08:08 10:55 WBC 14.1 H (3.8-10.6) k/uL MCHC 28.4 L (31.0-37.0) g/dL Neutrophils # 13.0 H (1.3-7.7) k/uL Lymphocytes # 0.4 L (1.0-4.8) k/uL Carbon Dioxide 31 H (22-30) mmol/L BUN 42 H (7-17) mg/dL Creatinine 2.09 H (0.52-1.04) mg/dL Glucose 158 H (74-99) mg/dL POC Glucose (mg/dL) 215 H (75-99) mg/dL Calcium 7.5 L (8.4-10.2) mg/dL Microbiology - Last 24 Hours (Table) 04/02/16 18:00 Urine Culture - Final Urine,Catheterized 04/02/16 14:51 Blood Culture - Preliminary Blood No Growth after 24 hours Assessment and Plan Plan: Acute hypoxic and hypercapnic respiratory failure, patient wears 3 L nasal cannula at baseline Acute on chronic Respiratory acidosis Sepsis with SIRS Acute exacerbation of CHF, likely diastolic, ejection fraction was 55-60% in 2013 NSTEMI Mild pulmonary hypertension on echocardiogram from 2013 Right upper quadrant abdominal pain Status post fall with left nondisplaced rib fracture Acute exacerbation of COPD and asthma, ALLERGIC Biliary colic Morbid obesity, suspect underlying EZEKIEL/OHS History of paroxysmal atrial fibrillation, now normal sinus rhythm Hyperglycemia Continue BiPAP Discontinue Lasix Pending echocardiogram Blood, urine, sputum cultures pending Initiate Pulmicort and DuoNeb's Pending LE dopplers Initiate IV Solu-Medrol Surgery recommendations, plan for cholecystectomy once patient is medically stable Avoid sedative medications including narcotics Continue Unasyn I's and O's and daily weights Blood sugar control Monitor renal function GI and DVT prophylaxis Plan is for patient to be transfer to [facility] today
--- NOTE | 2016-04-04 13:38 | PN ---
DATE OF SERVICE: 04/03/2016 INTERVAL HISTORY: Ms. Gomez is a 75-year-old female with known history of hypertension, COPD, on home oxygen dependent admitted to the hospital with right upper quadrant pain for possibly acute cholecystitis and patient went into hypercapnic and ( ) was on BiPAP machine, COPD exacerbation and currently patient is off BiPAP machine. Currently saturating well on nasal cannula. Patient denies any worsening abdominal pain. Surgery recommended no surgical intervention at this time. Pulmonary is following this patient. This patient is stable to be transferred out of the ICU. No fever. No chills. No acute overnight issues. REVIEW OF SYSTEMS: CONSTITUTIONAL: No fever, no chills. RESPIRATORY: No cough or sputum production. CARDIOVASCULAR: No chest pain or short of breath. ABDOMEN: No nausea, vomiting, abdominal pain. GENITOURINARY: Neg. ENDOCRINE: Negative. PSYCHIATRY: Negative. SKIN: Negative. All other fourteen-point review of systems as above. Current medications include Tylenol, DuoNeb, ( ), Bactrim, Pulmicort, heparin, Humalog, methylprednisone, Zofran, Protonix and normal saline at 200 mL/h. PHYSICAL EXAMINATION: 75-year-old female, lying in bed comfortably awake, alert, oriented x3. Appears to be in no apparent distress. VITALS: Blood pressure was 151/74, pulse is 94, respiratory rate 16, temperature afebrile. Pulse ox 95% on 2-L nasal cannula. HEENT: Atraumatic, normocephalic. Neck is supple. No JVD. CVS: S1, S2 heard. No murmurs, no rub. LUNGS: Bilateral diminished breath sounds. Nonlabored breathing. Expiratory phase prolonged with minimal wheezing. ABDOMEN: Soft, obese. Bowel sounds are present. VIDEO INTERN: Awake, alert and oriented x3. No focal deficit. Cranial nerves grossly intact. EXTREMITIES: No edema. Pluses palpable bilaterally. No clubbing or cyanosis. PSYCHIATRIC: Cooperative. Nonsuicidal. SKIN: No rash or skin lesions. LABORATORY DATA: WBC 13.5, hemoglobin 12.1, platelets 172, sodium 142, potassium 4.5, chloride 100, bicarb is 30, BUN 33, creatinine 1.9, calcium 7.3, phosphorus 5.8, troponins are trending down to 0.292, albumin 2.9. Chest x-ray today showed overall stable interstitial densities suggesting mild to moderate CHF. IMPRESSION: 1. Acute hypoxic and hypercapnic respiratory failure secondary to underlying chronic obstructive pulmonary disease. 2. Respiratory acidosis, improved. 3. Right upper quadrant pain, possible cholecystitis. No surgical intervention per Surgery. 4. Elevated troponin possible non-ST elevation myocardial infarction. 5. Acute chronic obstructive pulmonary disease exacerbation. 6. Chronic respiratory failure secondary to chronic obstructive pulmonary disease. 7. Home oxygen dependent. 8. Status post fall with left ninth rib fracture in the ER. 9. History paroxysmal atrial fibrillation, currently maintained in sinus rhythm. 10. Morbid obesity with body mass index of 38.3. 11. Hypertension. 12. Osteoarthritis. 13. History of seizure disorder. DISCUSSION AND PLAN: A 75-year-old female admitted to the hospital with acute hypoxic ( ) with right upper quadrant pain went into hypoxic respiratory failure while in the ER. Patient was placed on BiPAP machine. Currently is off BiPAP and saturating well on 4-L nasal cannula. Will continue the breathing treatments, continue the steroids. Continue the current management. General surgery is not planning for surgeries at this time. Patient otherwise denies any abdominal pain currently. Patient is being transferred to general medical floor. Prognosis is guarded. General Surgery and Cardiology are following this patient.
--- NOTE | 2016-04-04 13:59 | P.PN ---
Subjective 75-year-old female being seen with the attending at the bedside this morning. Patient currently is sitting up in a chair. Patient continues to report tenderness to the right upper quadrant. The attending did discuss with the patient the plan of care. Recommendations are to transfer patient to a tertiary center for a higher level of care for high risk surgery to address the abdominal pain possible cholecystectomy to be indicated patient has history of COPD is on supplemental home O2. Patient is agreed to be transferred to a tertiary center. It's noted this admission after patient received pain medication did require multiple doses of Narcan to treat increase lethargic with acute respiratory acidosis necessitating the needed BiPAP support Objective - Vital Signs Vital signs: Vital Signs Temp 97.2 F L 04/04/16 07:00 Pulse 92 04/04/16 12:34 Resp 20 04/04/16 07:00 BP 149/76 04/04/16 07:00 Pulse Ox 93 L 04/04/16 07:26 Intake & Output 04/03/16 04/04/16 04/04/16 18:59 06:59 18:59 Intake Total 800 150 Output Total 185 600 600 Balance 615 -450 -600 Intake: IV 600 150 Ampicillin-Sulbactam 1.5 50 gm In Sodium Chloride 0.9 % 50 ml @ 100 mls/hr IVPB Q12HR [facility] Rx#:[id number] Sodium Chloride 0.9% 1, 600 100 000 ml @ 20 mls/hr IV . Q24H [facility] Rx#:[id number] Intake, IV Titration 50 Amount Ampicillin-Sulbactam 1.5 50 gm In Sodium Chloride 0.9 % 50 ml @ 100 mls/hr IVPB Q6HR [facility] Rx#:[id number] Oral 150 Output: Urine 185 600 600 Uretheral (Marquez) 600 600 Other: Voiding Method Indwelling Catheter Indwelling Catheter Bedside Commode # Bowel Movements 0 1 - Exam Physical exam 75-year-old female sitting up in a chair pleasant oriented 3 aware of the plan of care Lungs posterior diminished at the bases currently on 3 L nasal cannula keeping a sat 93% no cough noted no use of accessory muscles to breathe Heart S1-S2 audible and regular denying chest pain Abdomen obese soft tenderness to the right upper quadrant persist no nausea no vomiting no difficulty in urinating Extremities bilateral nonpitting edema to the lower extremities - Labs CBC & Chem 7: 04/04/16 08:08 04/04/16 08:08 Labs: Abnormal Lab Results - Last 24 Hours (Table) 04/03/16 04/03/16 04/04/16 Range/Units 17:42 19:48 07:22 WBC (3.8-10.6) k/uL MCHC (31.0-37.0) g/dL Neutrophils # (1.3-7.7) k/uL Lymphocytes # (1.0-4.8) k/uL Carbon Dioxide (22-30) mmol/L BUN (7-17) mg/dL Creatinine (0.52-1.04) mg/dL Glucose (74-99) mg/dL POC Glucose (mg/dL) 224 H 240 H 139 H (75-99) mg/dL Calcium (8.4-10.2) mg/dL 04/04/16 04/04/16 04/04/16 Range/Units 08:08 08:08 10:55 WBC 14.1 H (3.8-10.6) k/uL MCHC 28.4 L (31.0-37.0) g/dL Neutrophils # 13.0 H (1.3-7.7) k/uL Lymphocytes # 0.4 L (1.0-4.8) k/uL Carbon Dioxide 31 H (22-30) mmol/L BUN 42 H (7-17) mg/dL Creatinine 2.09 H (0.52-1.04) mg/dL Glucose 158 H (74-99) mg/dL POC Glucose (mg/dL) 215 H (75-99) mg/dL Calcium 7.5 L (8.4-10.2) mg/dL Microbiology - Last 24 Hours (Table) 04/02/16 18:00 Urine Culture - Final Urine,Catheterized 04/02/16 14:51 Blood Culture - Preliminary Blood No Growth after 24 hours Assessment and Plan Plan: Impression Acute hypoxic and hypercapnic respiratory failure necessitating the use of BiPAP support suspect due to underlying COPD disease Chronic supplemental home oxygen 3 L Status post fall from a standing position resulting in left nondisplaced rib fracture Present on admission right upper quadrant pain suspect due to acute cholecystitis Acute COPD exacerbation History of paroxysmal atrial fibrillation currently maintaining sinus rhythm Morbid obesity with a BMI of 40.9 History of hypertension Chronic renal failure stage III Hyperglycemic episodes suspect steroid-induced Elevated troponins cardiology following Plan child care centre manager to pursue the discharge plan patient to be transferred to a tertiary center due to high risk surgical candidate Continue with the current plan of care The above dictated assessment and findings were discussed with dr Esmer thao Impression and the plan of care have been dictated as directed. Daniela Oglesby nurse practitioner acting as a scribe for Dr. Esmer Thao
--- NOTE | 2016-04-04 15:16 | PN ---
Daniela Dennison is a 75-year-old consulted by Dr. David we are following for hypertension. Patient is admitted to the hospital with acute cholecystitis, morbidly obese female with severe chronic obstructive lung disease, history of hypertension, which is under control without any medications at the present time. History of proximal entry fibrillation remaining in sinus rhythm. Work-up is in progress. Seen by Dr. David. Cardiac ( ) by general surgery regarding acute cholecystitis. The patient denies any chest pain or pressure or shortness of breath. Other than what is chronic obstructive ( ) lung related shortness of breath. Vital signs are stable with a pulse rate of 90 beats per minute and regular, blood pressure is 149/76, respirations 20. Head normocephalic. HEENT unremarkable. Neck is supple. No JVD. CARDIAC EXAMINATION: Regular rate and rhythm. LUNGS: Scattered rhonchi and mild wheezing. ABDOMEN: Soft. No guarding. ABDOMEN: Obese. Tender. Active bowel sounds. EXTREMITIES: No significant peripheral edema. Patient is continued on current medications, which include inhalers, insulin with ( ) without any antihypertensive treatment at present time. IMPRESSION: 1. Acute cholecystitis work-up in progress. 2. Paroxysmal atrial fibrillation remaining in sinus rhythm. 3. Severe chronic obstructive lung disease and history of hypertension without being on any medications at the present time, ( ) reasonably controlled. Will add medications if necessary. Patient will be seen as ( ) in the future.
--- NOTE | 2016-04-20 12:49 | DS ---
DATE OF ADMISSION: 04/01/2016 DATE OF DISCHARGE: 04/04/2016 Date of transfer to [facility] 04/04/2016. DISCHARGE DIAGNOSES: 1. Acute hypoxic and hypercapnic respiratory failure secondary to suspected chronic obstructive pulmonary disease exacerbation. 2. Chronic obstructive pulmonary disease on home oxygen. 3. Right upper quadrant pain, possibly acute cholecystitis. High risk for surgical procedure as per surgery report. 4. Elevated troponin level, possible non-ST elevation myocardial infarction. 5. Acute chronic obstructive pulmonary disease exacerbation. 6. Chronic respiratory failure secondary to chronic obstructive pulmonary disease. 7. Home oxygen dependent. 8. Status post fall with ninth rib fracture in the ER. 9. Status post fall from standing position. 10. History of paroxysmal atrial fibrillation currently maintained in sinus rhythm. 11. Morbid obesity with body mass index of 38.3. 12. Hypertension. 13. Osteoarthritis. 14. History of seizure disorder. HOSPITAL COURSE: Ms. Gomez is a 75-year-old female with multiple medical problems as discussed above admitted to the hospital with right upper quadrant pain and suspected acute cholecystitis. The patient went into respiratory failure and was placed on BiPAP in the ER and was transferred to ICU for close monitoring. Otherwise, patient was treated for acute COPD exacerbation. Patient is on home oxygen dependence. Patient also found to have slightly elevated troponin level and Cardiology has seen the patient. Since the patient was suspected to have acute cholecystitis and due to her severe COPD and history of paroxysmal atrial fibrillation and multiple other medical problems, General Surgery recommended to transfer to a tertiary care facility for close monitoring and possible requiring cholecystectomy. Otherwise, patient currently hemodynamically stable and I did discuss with surgery team at [facility] and patient will be transferred to [facility] for further care. DISCHARGE PHYSICAL EXAMINATION: A 75-year-old female lying in bed. Awake, alert, oriented x3. Appears to be in no apparent distress. VITALS: Blood pressure is 149/76, pulse is 94, respiration 20, temperature afebrile, pulse ox 93% on 3 L nasal cannula. LABORATORY DATA: Reviewed. Discharge physical examination done. Discharge medication reconciliation was done. The patient was discharged to [facility] in stable condition. Time taken more than 35 minutes including 18 minutes counseling the patient and coordinating care.
== END 2016-04-04 14:35 | disposition short-term general hospital (02) | DRG 444 ==
LOC: EC 15:40 → 3SUR 20:05 → 6SEL 04-02 01:33 → 6ICU 04-02 04:26 → 5MS5E 04-03 14:29
PROVIDERS: ADMIT Internal Medicine; ATTEND Internal Medicine
DX: K80.00 Calculus of gallbladder with acute cholecystitis without obstruction (principal); J96.21 Acute and chronic respiratory failure with hypoxia; I21.4 Non-ST elevation (NSTEMI) myocardial infarction; I50.33 Acute on chronic diastolic (congestive) heart failure; E87.2 Acidosis; I27.2 Other secondary pulmonary hypertension; I48.92 Unspecified atrial flutter; I48.0 Paroxysmal atrial fibrillation; G40.909 Epilepsy, unspecified, not intractable, without status epilepticus; Z68.41 Body mass index [BMI] 40.0-44.9, adult; E66.2 Morbid (severe) obesity with alveolar hypoventilation; J96.22 Acute and chronic respiratory failure with hypercapnia; J44.1 Chronic obstructive pulmonary disease with (acute) exacerbation; S22.32XA Fracture of one rib, left side, initial encounter for closed fracture; I13.0 Hypertensive heart and chronic kidney disease with heart failure and stage 1 through stage 4 chronic kidney disease, or unspecified chronic kidney disease; Z99.81 Dependence on supplemental oxygen; N18.3 Chronic kidney disease, stage 3 (moderate); R73.9 Hyperglycemia, unspecified; I44.0 Atrioventricular block, first degree; J45.909 Unspecified asthma, uncomplicated; T40.2X5A Adverse effect of other opioids, initial encounter; M19.90 Unspecified osteoarthritis, unspecified site; D72.829 Elevated white blood cell count, unspecified; Z87.442 Personal history of urinary calculi; Z87.891 Personal history of nicotine dependence; Z91.013 Allergy to seafood; Z79.899 Other long term (current) drug therapy; Z88.8 Allergy status to other drugs, medicaments and biological substances; Z87.01 Personal history of pneumonia (recurrent); Z91.041 Radiographic dye allergy status; Z88.5 Allergy status to narcotic agent; W01.10XA Fall on same level from slipping, tripping and stumbling with subsequent striking against unspecified object, initial encounter; Y92.238 Other place in hospital as the place of occurrence of the external cause
CPT/HCPCS: 36415; 36600; 70450; 71010; 74000; 76705; 80048; 80053; 81001; 82150; 82550; 82553; 82805; 83036; 83605; 83690; 83735; 83880; 84100; 84132; 84484; 85025; 85379; 85610; 85730; 87040; 87086; 93005; 93308; 93965; 93970; 94640; 94660; 94760; 96361; 96365; 96375; 96376; 99285

== ENCOUNTER 2016-04-25 10:04 | Inpatient (IN) | payer MEDICARE ==
[2016-04-25] MEDS ORDERED: methylPREDNISolone SOD SUCCI 125 MG/2 ML VIAL IV STA (10:12)
--- NOTE | 2016-04-25 10:12 | ED ---
SOB HPI - General Stated Complaint: HARI Time Seen by Provider: 04/25/16 10:04 Source: patient, EMS, RN notes reviewed, old records reviewed Mode of arrival: EMS - History of Present Illness Initial Comments: This is a 75-year-old female history of chronic bronchitis asthma and COPD who normally short of breath who is brought in for evaluation of increasing shortness of breath today. She had a cough of yellow-green phlegm but she denies any fevers chills or sweats she also denies any chest pain. She was given an updraft and route by EMS with some improvement. She still is dyspneic however. She does states she has peripheral edema which is better than what has been recently MD Complaint: shortness of breath, cough - Related Data Home Medications Medication Instructions Recorded Confirmed Ubidecarenone [Coq-10] 100 mg PO TID 12/12/13 04/25/16 Furosemide [Lasix] 40 mg PO DAILY 04/02/16 04/25/16 Acetaminophen Tab [Tylenol Tab] 325 mg PO Q6H PRN 04/25/16 04/25/16 Bisacodyl [Dulcolax] 10 mg RECTAL DAILY PRN 04/25/16 04/25/16 Budesonide [Pulmicort] 0.25 mg INHALATION RT-BID 04/25/16 04/25/16 Ipratropium-Albuterol Nebulize 3 ml INHALATION RT-Q4H PRN 04/25/16 04/25/16 [Duoneb 0.5 mg-3 mg/3 ml Soln] Magnesium Hydroxide [Milk of 2,400 mg PO DAILY PRN 04/25/16 04/25/16 Magnesia] Na Phos,M-B/Na Phos,Di-Ba [Fleet 133 ml RECTAL DAILY PRN 04/25/16 04/25/16 Adult] Vitamins A and D [Vitamin A & D] 1 applic TOPICAL DAILY 04/25/16 04/25/16 Zinc Oxide [Desitin] 1 applic TOPICAL DAILY PRN 04/25/16 04/25/16 Previous Rx's Medication Instructions Recorded Diltiazem Cd [Cardizem CD] 180 mg PO DAILY #30 cap.er.24h 12/24/13 Allergies Allergy/AdvReac Type Severity Reaction Status Date / Time codeine Allergy Unknown Verified 04/25/16 10:40 hydromorphone HCl Allergy Unknown Verified 04/25/16 10:40 [From Dilaudid] Iodinated Contrast Media - Allergy Unknown Verified 04/25/16 10:40 Oral and iodine Allergy Swelling Verified 04/25/16 10:40 metolazone Allergy Unknown Verified 04/25/16 10:40 morphine Allergy Dyspnea Verified 04/25/16 10:40 shellfish derived Allergy Unknown Verified 04/25/16 10:40 Review of Systems ROS Statement: Those systems with pertinent positive or pertinent negative responses have been documented in the HPI. ROS Other: All systems not noted in ROS Statement are negative. Past Medical History Past Medical History: Atrial Flutter, COPD, Hypertension, Osteoarthritis (OA), Pneumonia Additional Past Medical History / Comment(s): home O2 dependent. 3 liters " Stats mid to higher 80's at home" History of Any Multi-Drug Resistant Organisms: None Reported Past Surgical History: No Surgical Hx Reported Additional Past Anesthesia/Blood Transfusion Reaction / Comment(s): No blood, anesthesia before when " teeth were pulled" per family Past Psychological History: No Psychological Hx Reported Smoking Status: Former smoker Past Alcohol Use History: Occasional Past Drug Use History: None Reported - Past Family History Mother Family Medical History: Cancer Additional Family Medical History / Comment(s): breast cancer Father Family Medical History: Liver Disease Additional Family Medical History / Comment(s): cirrhosis caused from alcoholism per patient statement General Exam - General Exam Comments Initial Comments: This a well-developed well-nourished awake alert oriented history female she does appear to be dyspneic General appearance: alert, in no apparent distress Head exam: Present: atraumatic, normocephalic, normal inspection Eye exam: Present: normal appearance, PERRL, EOMI. Absent: scleral icterus, conjunctival injection, periorbital swelling ENT exam: Present: mucous membranes dry Neck exam: Present: normal inspection. Absent: tenderness, meningismus, lymphadenopathy Respiratory exam: Present: rhonchi, decreased breath sounds Cardiovascular Exam: Present: irregular rhythm GI/Abdominal exam: Present: soft, normal bowel sounds. Absent: distended, tenderness, guarding, rebound, rigid Extremities exam: Present: pedal edema, other (Stasis dermatitis) Back exam: Present: normal inspection Neurological exam: Present: alert, oriented X3, CN II-XII intact Psychiatric exam: Present: normal affect, normal mood Skin exam: Present: warm, dry, intact, normal color. Absent: rash Course Vital Signs 04/25/16 04/25/16 04/25/16 10:13 10:32 10:49 Temperature 97.4 F L Pulse Rate 88 91 Respiratory 24 24 Rate Blood Pressure 112/47 O2 Sat by Pulse 92 L Oximetry 04/25/16 04/25/16 04/25/16 10:59 11:08 12:35 Temperature Pulse Rate 90 101 H 111 H Respiratory 16 16 Rate Blood Pressure 139/59 152/53 O2 Sat by Pulse 93 L 91 L Oximetry - Reevaluation(s) Reevaluation #1: 04/25/16 13:06 The patient was getting some relief from her initial treatment. Medical Decision Making - Medical Decision Making I did a long discussion with the patient regarding the findings also discussed the findings with the admitting physician patient will be admitted for evaluation. - Lab Data Result diagrams: 04/25/16 10:25 04/25/16 10:25 Lab Results 04/25/16 04/25/16 04/25/16 Range/Units 10:25 10:25 10:25 WBC 7.1 (3.8-10.6) k/uL RBC 4.85 (3.80-5.40) m/uL Hgb 13.2 (11.4-16.0) gm/dL Hct 45.8 (34.0-46.0) % MCV 94.4 (80.0-100.0) fL MCH 27.1 (25.0-35.0) pg MCHC 28.7 L (31.0-37.0) g/dL RDW 14.9 (11.5-15.5) % Plt Count 194 (150-450) k/uL Neutrophils % 82 % Lymphocytes % 9 % Monocytes % 6 % Eosinophils % 1 % Basophils % 0 % Neutrophils # 5.8 (1.3-7.7) k/uL Lymphocytes # 0.6 L (1.0-4.8) k/uL Monocytes # 0.4 (0-1.0) k/uL Eosinophils # 0.1 (0-0.7) k/uL Basophils # 0.0 (0-0.2) k/uL Hypochromasia Marked PT (9.0-12.0) sec INR (<1.1) APTT (22.0-30.0) sec Sodium 141 (137-145) mmol/L Potassium 3.2 L (3.5-5.1) mmol/L Chloride 84 L (98-107) mmol/L Carbon Dioxide 49 H* (22-30) mmol/L Anion Gap 8 mmol/L BUN 24 H (7-17) mg/dL Creatinine 1.28 H (0.52-1.04) mg/dL Est GFR (MDRD) Af Amer 50 (>60 ml/min/1.73 sqM) Est GFR (MDRD) Non-Af 41 (>60 ml/min/1.73 sqM) Glucose 178 H (74-99) mg/dL Plasma Lactic Acid Francisco Javier (0.7-2.0) mmol/L Calcium 8.4 (8.4-10.2) mg/dL Magnesium 2.1 (1.6-2.3) mg/dL Total Bilirubin 0.7 (0.2-1.3) mg/dL AST 22 (14-36) U/L ALT 27 (9-52) U/L Alkaline Phosphatase 78 (38-126) U/L Total Creatine Kinase <20 L (30-135) U/L CK-MB (CK-2) 0.4 (0.0-2.4) ng/mL CK-MB (CK-2) Rel Index 0.0 Troponin I 0.042 H* (0.000-0.034) ng/mL NT-Pro-B Natriuret Pep pg/mL Total Protein 7.0 (6.3-8.2) g/dL Albumin 3.5 (3.5-5.0) g/dL Urine Color Urine Appearance (Clear) Urine pH (5.0-8.0) Ur Specific [place] (1.001-1.035) Urine Protein (Negative) Urine Glucose (UA) (Negative) Urine Ketones (Negative) Urine Blood (Negative) Urine Nitrate (Negative) Urine Bilirubin (Negative) Urine Urobilinogen (<2.0) mg/dL Ur Leukocyte Esterase (Negative) Urine RBC (0-5) /hpf Urine WBC (0-5) /hpf Ur Squamous Epith Cells (0-4) /hpf Urine Bacteria (None) /hpf Urine Mucus (None) /hpf 04/25/16 04/25/16 04/25/16 Range/Units 10:25 10:25 10:25 WBC (3.8-10.6) k/uL RBC (3.80-5.40) m/uL Hgb (11.4-16.0) gm/dL Hct (34.0-46.0) % MCV (80.0-100.0) fL MCH (25.0-35.0) pg MCHC (31.0-37.0) g/dL RDW (11.5-15.5) % Plt Count (150-450) k/uL Neutrophils % % Lymphocytes % % Monocytes % % Eosinophils % % Basophils % % Neutrophils # (1.3-7.7) k/uL Lymphocytes # (1.0-4.8) k/uL Monocytes # (0-1.0) k/uL Eosinophils # (0-0.7) k/uL Basophils # (0-0.2) k/uL Hypochromasia PT 10.2 (9.0-12.0) sec INR 1.0 (<1.1) APTT 21.3 L (22.0-30.0) sec Sodium (137-145) mmol/L Potassium (3.5-5.1) mmol/L Chloride (98-107) mmol/L Carbon Dioxide (22-30) mmol/L Anion Gap mmol/L BUN (7-17) mg/dL Creatinine (0.52-1.04) mg/dL Est GFR (MDRD) Af Amer (>60 ml/min/1.73 sqM) Est GFR (MDRD) Non-Af (>60 ml/min/1.73 sqM) Glucose (74-99) mg/dL Plasma Lactic Acid Francisco Javier 1.9 (0.7-2.0) mmol/L Calcium (8.4-10.2) mg/dL Magnesium (1.6-2.3) mg/dL Total Bilirubin (0.2-1.3) mg/dL AST (14-36) U/L ALT (9-52) U/L Alkaline Phosphatase (38-126) U/L Total Creatine Kinase (30-135) U/L CK-MB (CK-2) (0.0-2.4) ng/mL CK-MB (CK-2) Rel Index Troponin I (0.000-0.034) ng/mL NT-Pro-B Natriuret Pep 6710 pg/mL Total Protein (6.3-8.2) g/dL Albumin (3.5-5.0) g/dL Urine Color Urine Appearance (Clear) Urine pH (5.0-8.0) Ur Specific [place] (1.001-1.035) Urine Protein (Negative) Urine Glucose (UA) (Negative) Urine Ketones (Negative) Urine Blood (Negative) Urine Nitrate (Negative) Urine Bilirubin (Negative) Urine Urobilinogen (<2.0) mg/dL Ur Leukocyte Esterase (Negative) Urine RBC (0-5) /hpf Urine WBC (0-5) /hpf Ur Squamous Epith Cells (0-4) /hpf Urine Bacteria (None) /hpf Urine Mucus (None) /hpf 04/25/16 Range/Units 11:41 WBC (3.8-10.6) k/uL RBC (3.80-5.40) m/uL Hgb (11.4-16.0) gm/dL Hct (34.0-46.0) % MCV (80.0-100.0) fL MCH (25.0-35.0) pg MCHC (31.0-37.0) g/dL RDW (11.5-15.5) % Plt Count (150-450) k/uL Neutrophils % % Lymphocytes % % Monocytes % % Eosinophils % % Basophils % % Neutrophils # (1.3-7.7) k/uL Lymphocytes # (1.0-4.8) k/uL Monocytes # (0-1.0) k/uL Eosinophils # (0-0.7) k/uL Basophils # (0-0.2) k/uL Hypochromasia PT (9.0-12.0) sec INR (<1.1) APTT (22.0-30.0) sec Sodium (137-145) mmol/L Potassium (3.5-5.1) mmol/L Chloride (98-107) mmol/L Carbon Dioxide (22-30) mmol/L Anion Gap mmol/L BUN (7-17) mg/dL Creatinine (0.52-1.04) mg/dL Est GFR (MDRD) Af Amer (>60 ml/min/1.73 sqM) Est GFR (MDRD) Non-Af (>60 ml/min/1.73 sqM) Glucose (74-99) mg/dL Plasma Lactic Acid Francisco Javier (0.7-2.0) mmol/L Calcium (8.4-10.2) mg/dL Magnesium (1.6-2.3) mg/dL Total Bilirubin (0.2-1.3) mg/dL AST (14-36) U/L ALT (9-52) U/L Alkaline Phosphatase (38-126) U/L Total Creatine Kinase (30-135) U/L CK-MB (CK-2) (0.0-2.4) ng/mL CK-MB (CK-2) Rel Index Troponin I (0.000-0.034) ng/mL NT-Pro-B Natriuret Pep pg/mL Total Protein (6.3-8.2) g/dL Albumin (3.5-5.0) g/dL Urine Color Yellow Urine Appearance Cloudy H (Clear) Urine pH 6.5 (5.0-8.0) Ur Specific [place] 1.005 (1.001-1.035) Urine Protein 1+ H (Negative) Urine Glucose (UA) Negative (Negative) Urine Ketones Negative (Negative) Urine Blood Trace H (Negative) Urine Nitrate Negative (Negative) Urine Bilirubin Negative (Negative) Urine Urobilinogen <2.0 (<2.0) mg/dL Ur Leukocyte Esterase Small H (Negative) Urine RBC 6 H (0-5) /hpf Urine WBC 7 H (0-5) /hpf Ur Squamous Epith Cells 4 (0-4) /hpf Urine Bacteria Occasional H (None) /hpf Urine Mucus Rare H (None) /hpf - EKG Data -: EKG Interpreted by Me (Atrial fibrillation rate of 105 QRS of 78 QT/QTC of 332/[address] ) - Radiology Data Radiology results: report reviewed (I did review the x-ray report is evidence of congestive failure.), image reviewed Critical Care Time Critical Care Time: Yes Critical Care Time: 360 minutes of critical care time which includes initial monitoring of the EMS run as well as discussed with paramedics history physical lab and x-rays on the patient. Discussed with the patient regarding the findings discussed with the admitting physician. Admission orders and documentation of the above. Disposition Clinical Impression: Congestive heart failure, Acute exacerbation of chronic obstructive airways disease Disposition: ADMITTED IP TO THIS HOSP Referrals: Rodolfo Padron MD [Primary Care Provider] - 1-2 days
[2016-04-25] MEDS ORDERED: IPRATROPIUM-ALBUTEROL 3 ML NEB INHALATION STA (10:36)
[2016-04-25 10:53] LABS: Calcium 8.4 mg/dL (8.4-10.2); Magnesium 2.1 mg/dL (1.6-2.3); Total Bilirubin 0.7 mg/dL (0.2-1.3)
[2016-04-25 10:58] LABS: Creatine Kinase <20 U/L (30-135)
[2016-04-25 11:02] LABS: Partial Thromboplastin Time 21.3 sec (22.0-30.0); Prothrombin Time 10.2 sec (9.0-12.0)
[2016-04-25 11:05] LABS: Potassium 3.2 mmol/L (3.5-5.1)
[2016-04-25 11:11] LABS: Creatine Kinase MB 0.4 ng/mL (0.0-2.4)
[2016-04-25 11:18] LABS: Basophils % (A) 0 %; CH 26.5; CHCM 28.2; Eosinophils # (A) 0.1 k/uL (0-0.7); Eosinophils % (A) 1 %; HCT 45.8 % (34.0-46.0); HDW 2.67; HGB 13.2 gm/dL (11.4-16.0); Hypochromasia Marked; Luc % (Auto) 1; Lymphocytes # (A) 0.6 k/uL (1.0-4.8); Lymphocytes % (A) 9 %; MCH 27.1 pg (25.0-35.0); MCHC 28.7 g/dL (31.0-37.0); MCV 94.4 fL (80.0-100.0); Mean Platelet Volume 7.9; Monocytes # (A) 0.4 k/uL (0-1.0); Monocytes % (A) 6 %; Neutrophils # (A) 5.8 k/uL (1.3-7.7); Neutrophils % (A) 82 %; RBC 4.85 m/uL (3.80-5.40); RDW 14.9 % (11.5-15.5); WBC 7.1 k/uL (3.8-10.6); WBC (Perox) 6.74
[2016-04-25 11:19] LABS: Troponin I 0.042 ng/mL (0.000-0.034)
[2016-04-25 12:04] LABS: Appearance,Urine Cloudy (Clear); Bacteria,Urine Occasional /hpf; Bilirubin,Urine Negative (Negative); Glucose,Urine (UA) Negative (Negative); Ketones,Urine Negative (Negative); Leukocyte Esterase,Urine Small (Negative); Mucus,Urine Rare /hpf; Nitrite,Urine Negative (Negative); PH, Urine 6.5 (5.0-8.0); Particle Count 10390; Protein,Urine 1+ (Negative); RBC,Urine 6 /hpf (0-5); Specific Gravity,Urine 1.005 (1.001-1.035); Squamous Epithelial Cell,Urine 4 /hpf (0-4); UA Billing (MACRO vs. MICRO) MICRO; Urobilinogen,Urine <2.0 mg/dL (<2.0); WBC,Urine 7 /hpf (0-5)
--- NOTE | 2016-04-25 12:20 | XR ---
EXAMINATION TYPE: XR chest 2V DATE OF EXAM: 04/25/2016 12:11 PM COMPARISON: 04/03/2016 HISTORY: 75-year-old female difficulty breathing TECHNIQUE: AP and lateral views FINDINGS: Heart is mildly enlarged similar to prior. Diffuse interstitial densities also similar to prior. No n ew area of consolidation or significant pleural effusion seen. IMPRESSION: Cardiomegaly and interstitial densities; correlate for CHF and pulmonary vascular congestion. Some of the interstitial densities may be chronic.
[2016-04-25] MEDS ORDERED: NITROGLYCERIN OINT 1 INCH/GM PACKET TOPICAL STA (13:00)
[2016-04-25] MEDS ORDERED: FUROSEMIDE 10 MG/ML 4 ML VIAL IV STA (13:00)
[2016-04-25] MEDS: IPRATROPIUM-ALBUTEROL 3 ML NEB INHALATION SCH ×2 (15:37→19:27)
[2016-04-25] MEDS: SODIUM CHLORIDE 0.9% 1,000 ML IV SCH (15:45)
[2016-04-25] MEDS ORDERED: IPRATROPIUM-ALBUTEROL 3 ML NEB INHALATION PRN (15:56)
[2016-04-25] MEDS: POTASSIUM CHLORIDE ER 20 MEQ TAB.ER PO SCH ×2 (16:52→17:52)
[2016-04-25] MEDS: NITROGLYCERIN OINT 1 INCH/GM PACKET TOPICAL SCH ×2 (17:52→21:59)
[2016-04-25] MEDS ORDERED: FUROSEMIDE 10 MG/ML 4 ML VIAL IV SCH (21:00)
[2016-04-25] MEDS ORDERED: POTASSIUM CHLORIDE ER 20 MEQ TAB.ER PO STA (22:24)
[2016-04-25] MEDS ORDERED: BISACODYL 10 MG SUPP RECTAL PRN (22:39)
[2016-04-25] MEDS: guaiFENesin 600 MG TABLET.ER PO SCH (23:28)
[2016-04-26] MEDS: FUROSEMIDE 10 MG/ML 10 ML VIAL IV SCH ×4 (01:06→23:13)
[2016-04-26] MEDS: POTASSIUM CHLORIDE ER 20 MEQ TAB.ER PO SCH ×2 (03:48→04:52)
[2016-04-26 06:57] LABS: Calcium 8.4 mg/dL (8.4-10.2); Potassium 3.8 mmol/L (3.5-5.1)
[2016-04-26] MEDS ORDERED: IPRATROPIUM-ALBUTEROL 3 ML NEB INHALATION SCH ×2 (08:00)
[2016-04-26] MEDS ORDERED: BUDESONIDE 0.25 MG/2 ML NEBU INHALATION SCH (08:00)
[2016-04-26] MEDS: IPRATROPIUM-ALBUTEROL 3 ML NEB INHALATION SCH ×4 (08:32→20:38)
[2016-04-26] MEDS: guaiFENesin 600 MG TABLET.ER PO SCH ×2 (08:50→21:52)
[2016-04-26] MEDS ORDERED: FUROSEMIDE 40 MG TAB PO SCH (09:00)
[2016-04-26] MEDS ORDERED: DILTIAZEM CD 180 MG CAP.ER.24H PO SCH (09:00)
[2016-04-26] MEDS: SODIUM CHLORIDE 0.9% 1,000 ML IV SCH (09:15)
--- NOTE | 2016-04-26 10:24 | HP ---
DATE OF ADMISSION: 04/25/2016 PRESENTING COMPLAINT: Short of breath. HISTORY OF PRESENTING COMPLAINT: This is a 75-year-old patient of Dr. Padron who has got a history of home oxygen 3 L, atrial fibrillation, hypertension, osteoarthritis, seizure disorder. Patient is progressively getting short of breath for a period of time, presented with cough, some yellowish phlegm, decreased appetite and wheezing and finding it more difficult to walk. Patient is an ex-smoker. Patient currently short of breath at rest. REVIEW OF SYSTEMS: CONSTITUTIONAL: Weak and tired. HEENT: None. RESPIRATORY: As above. CARDIOVASCULAR: As above including edema. GASTROINTESTINAL: None. GENITOURINARY: None. MUSCULOSKELETAL: Aches and pains in the joints. DERMATOLOGICAL: Bruising. HEMATOLOGICAL: None. LYMPHATICS: None. PSYCHIATRY: None. NEUROLOGICAL: None. PAST MEDICAL HISTORY: Atrial flutter, congestive heart failure, COPD, hypertension, osteoarthritis, home oxygen 3 L. SURGICAL HISTORY: None. SOCIAL HISTORY: The patient is a resident of [facility]. Smoked from the age of 15 for about 60 years; stopped about 10 years ago, smoked about 2 packs a day. Family history of breast cancer. HOME MEDICATIONS: 1. Desitin topical daily p.r.n. 2. Vitamin A & D topical daily. 3. Milk of magnesia 2400 mg p.o. daily p.r.n. 4. DuoNeb q.4 p.r.n. 5. Adult Fleet enema 133 mL daily p.r.n. 6. CoQ10, 100 mg p.o. t.i.d. 7. Dulcolax 10 mg rectal daily p.r.n. 8. Pulmicort 0.25 nebulizer b.i.d. 9. Lasix 40 mg p.o. daily. 10. Cardizem CD 180 mg p.o. daily. Allergies to CODEINE, DILAUDID, IV CONTRAST DYE, METOLAZONE, MORPHINE, SHELLFISH. On examination, temperature 97.4, pulse 88, respirations 24, blood pressure 112/47, pulse ox 92% on 3 L. GENERAL APPEARANCE: Morbidly obese, BMI 40.8. Sitting up, very short of breath with audible gurgling in the chest. EYES: Pupils equal. Conjunctivae normal. HEENT: External appearance of nose and ears normal. Oral cavity normal. NECK: Short, thick, JVD unable to assess. Mass not palpable. RESPIRATORY: Effort increased. LUNGS: Decreased breath sounds, poor expiration, scattered crackles. CARDIOVASCULAR: First and second seconds normal. Edema present. ABDOMEN: Distended, soft. Liver and spleen not palpable. LYMPHATIC: No lymph node palpable in neck or axillae. PSYCHIATRY: Alert and oriented x3. Mood and affect slightly anxious appearing. DERMATOLOGICAL: Evidence of bruising and dry skin. MUSCULOSKELETAL: Evidence of osteoarthritis in multiple joints. INVESTIGATIONS: White count 7.1, hemoglobin 13.2. Potassium 3.2. Carbon dioxide 49. BUN 24, creatinine 1.28. Patient's BUN and creatinine were 42 and 2.09 on 04/04/16. Troponin 0.042. ProBNP 6710. Chest x-ray shows some cardiomegaly, pulmonary edema with fluid in the fissure. EKG atrial fibrillation with rapid ventricular rate. ASSESSMENT: 1. Acute on chronic congestive heart failure exacerbation. Patient's recent echocardiogram could not determine the EF. 2. Persistent atrial fibrillation with rapid ventricular rate. 3. Acute chronic obstructive pulmonary disease exacerbation in an ex-smoker. 4. Acute hypercapnia respiratory failure. 5. Chronic hypoxic respiratory failure. Patient on 3 L of oxygen at home. 6. Morbid obesity, body mass index of 40.8. 7. Essential hypertension. 8. Primary osseous multiple joints. 9. History of seizure disorder. 10. Medical debility, patient is slow to get about. PLAN: At this point, patient will be started on IV Lasix 60 q.6. Home medications will be resumed. Patient will be given nebulized bronchodilators, Mucinex, budesonide. Patient will be given Venodyne boots for DVT prophylaxis. I do not see patient on anticoagulants. Will let cardiology determine. Patient does seem to bruise easily. Care was discussed with the patient. Patient follows with Dr. Padron. Oxygen is being supplemented.
[2016-04-26] MEDS: ASPIRIN 325 MG TAB PO SCH (11:25)
--- NOTE | 2016-04-26 12:02 | P.CRDCN ---
<Le Esteves E - Last Filed: 04/26/16 11:43> History of Present Illness Consult date: 04/26/16 Requesting physician: Gary Hollis Consult reason: shortness of breath Chief complaint: Shortness of breath History of present illness: This is a pleasant 75-year-old female with history of severe COPD and home O2 use, nicotine dependence, hypertension, she was most recently seen here in the hospital earlier this month, echo performed in December revealed normal left ventricular systolic function. Patient also has history of paroxysmal atrial fibrillation. She again presents to the hospital with symptoms of progressively worsening shortness of breath. EKG on admission showed atrial fibrillation with a moderately rapid ventricular response. Chest x-ray on admission revealed cardiomegaly and interstitial densities, correlation for heart failure and pulmonary vascular congestion suggested. CBC normal. Potassium 3.1 on admission, 2.9 this morning, BUN 26, creatinine 1.3. Magnesium level 2.1. Troponins 0.042, 0.031, 0.039. BNP level 6710. Patient was initiated on IV Lasix, continues to be on IV Lasix at this time. Weight is down. Patient is currently not on anticoagulation. Past Medical History Past Medical History: Atrial Flutter, Heart Failure, COPD, Hypertension, Osteoarthritis (OA), Pneumonia Additional Past Medical History / Comment(s): home O2 dependent, bronchits,( ecoli in sputum 9-12-14 per micro). 3 liters . per son and pt"no narcotics-pt does'nt tolerate them well" History of Any Multi-Drug Resistant Organisms: None Reported Past Surgical History: No Surgical Hx Reported Additional Past Anesthesia/Blood Transfusion Reaction / Comment(s): No blood, anesthesia before when " teeth were pulled" per family Past Psychological History: No Psychological Hx Reported Additional Psychological History / Comment(s): currently at [facility]. Smoking Status: Former smoker Past Alcohol Use History: Occasional Additional Past Alcohol Use History / Comment(s): started smokin g at age 15, smoked 2 ppd, quit 2005 Past Drug Use History: None Reported - Past Family History Mother Family Medical History: Cancer Additional Family Medical History / Comment(s): breast cancer Father Family Medical History: Liver Disease Additional Family Medical History / Comment(s): cirrhosis caused from alcoholism per patient statement Medications and Allergies Home Medications Medication Instructions Recorded Confirmed Type Ubidecarenone [Coq-10] 100 mg PO TID 12/12/13 04/25/16 History Furosemide [Lasix] 40 mg PO DAILY 04/02/16 04/25/16 History Acetaminophen Tab [Tylenol Tab] 325 mg PO Q6H PRN 04/25/16 04/25/16 History Bisacodyl [Dulcolax] 10 mg RECTAL DAILY PRN 04/25/16 04/25/16 History Budesonide [Pulmicort] 0.25 mg INHALATION RT-BID 04/25/16 04/25/16 History Ipratropium-Albuterol Nebulize 3 ml INHALATION RT-Q4H PRN 04/25/16 04/25/16 History [Duoneb 0.5 mg-3 mg/3 ml Soln] Magnesium Hydroxide [Milk of 2,400 mg PO DAILY PRN 04/25/16 04/25/16 History Magnesia] Na Phos,M-B/Na Phos,Di-Ba [Fleet 133 ml RECTAL DAILY PRN 04/25/16 04/25/16 History Adult] Vitamins A and D [Vitamin A & D] 1 applic TOPICAL DAILY 04/25/16 04/25/16 History Zinc Oxide [Desitin] 1 applic TOPICAL DAILY PRN 04/25/16 04/25/16 History Allergies Allergy/AdvReac Type Severity Reaction Status Date / Time codeine Allergy Unknown Verified 04/25/16 10:40 hydromorphone HCl Allergy Unknown Verified 04/25/16 10:40 [From Dilaudid] Iodinated Contrast Media - Allergy Unknown Verified 04/25/16 10:40 Oral and iodine Allergy Swelling Verified 04/25/16 10:40 metolazone Allergy Unknown Verified 04/25/16 10:40 morphine Allergy Dyspnea Verified 04/25/16 10:40 shellfish derived Allergy Unknown Verified 04/25/16 10:40 Physical Exam Vitals: Vital Signs Temp Pulse Pulse Resp BP BP Pulse Ox 04/26/16 11:29 96.9 F L 124 H 20 139/97 97 04/26/16 11:23 124 H 24 04/26/16 11:14 97.8 F 110 H 24 138/73 95 04/26/16 09:05 129 H 24 04/26/16 07:43 97.4 F L 129 H 22 164/77 95 04/26/16 07:35 110 H 18 04/26/16 04:00 98.2 F 110 H 18 157/68 93 L 04/26/16 00:00 116 H 18 133/74 94 L 04/25/16 23:59 88 04/25/16 23:48 88 04/25/16 20:00 97.8 F 108 H 18 131/66 92 L 04/25/16 19:27 92 04/25/16 16:00 97.6 F 105 H 20 172/73 94 L 04/25/16 15:57 91 04/25/16 15:40 90 04/25/16 15:13 97.9 F 67 18 163/60 98 Intake and Output 04/25/16 04/26/16 04/26/16 22:59 06:59 14:59 Intake Total 170 236 Output Total 400 1500 300 Balance -230 -1500 -64 Intake: Oral 170 236 Output: Urine 400 1500 300 Other: Voiding Method Toilet Toilet Bedpan Bedpan # Voids 1 1 1 Weight 103.4 kg PHYSICAL EXAMINATION: HEENT: Head is atraumatic, normocephalic. Pupils equal, round. Neck is supple. There is no elevated jugular venous pressure. HEART EXAMINATION: Heart S1 and S2 irregular irregular systolic murmur is heard. CHEST EXAMINATION: Lungs reveal coarse wheezing throughout. ABDOMEN: Soft, nontender. Bowel sounds are heard. No organomegaly noted. EXTREMITIES: 2+ peripheral pulses with 1+ evidence of peripheral edema and no calf tenderness noted. NEUROLOGIC patient is awake, alert and oriented -3. . Results 04/25/16 10:25 04/26/16 06:11 Cardiac Enzymes 04/25/16 04/26/16 Range/Units 20:07 01:07 Troponin I 0.031 0.039 H* (0.000-0.034) ng/mL Comprehensive Metabolic Panel 04/25/16 04/26/16 04/26/16 Range/Units 20:07 01:07 06:11 Sodium 143 (137-145) mmol/L Potassium 3.1 L 2.9 L* 3.8 (3.5-5.1) mmol/L Chloride 87 L (98-107) mmol/L Carbon Dioxide 46 H* (22-30) mmol/L BUN 26 H (7-17) mg/dL Creatinine 1.30 H (0.52-1.04) mg/dL Glucose 129 H (74-99) mg/dL Calcium 8.4 (8.4-10.2) mg/dL Current Medications Generic Name Dose Route Start Last Admin Trade Name Freq PRN Reason Stop Dose Admin Albuterol/Ipratropium 3 ml 04/25/16 15:56 04/25/16 23:56 Duoneb 0.5 Mg-3 Mg/3 Ml Soln INHALATION 3 ml RT-Q2H PRN Administration Shortness Of Breath Or Wheezing Albuterol/Ipratropium 3 ml 04/26/16 08:00 04/26/16 11:41 Duoneb 0.5 Mg-3 Mg/3 Ml Soln INHALATION 3 ml RT-QID PEPITO Administration Aspirin 325 mg 04/26/16 12:00 04/26/16 11:25 Aspirin PO 325 mg DAILY PEPITO Administration Bisacodyl 10 mg 04/25/16 22:39 Dulcolax RECTAL DAILY PRN Constipation Budesonide 0.25 mg 04/26/16 08:00 04/26/16 08:32 Pulmicort INHALATION Not Given RT-BID PEPITO Diltiazem HCl 180 mg 04/26/16 09:00 04/26/16 08:50 Cardizem Cd PO 180 mg DAILY PEPITO Administration Furosemide 60 mg 04/26/16 00:00 04/26/16 08:59 Lasix IV 60 mg Q8HR PEPITO Administration Guaifenesin 1,200 mg 04/25/16 22:45 04/26/16 08:50 Mucinex PO 1,200 mg Q12HR PEPITO Administration Sodium Chloride 1,000 mls @ 20 mls/hr 04/25/16 14:15 04/26/16 09:15 Saline 0.9% IV Not Given .Q24H PEPITO Intake and Output 04/25/16 04/26/16 04/26/16 22:59 06:59 14:59 Intake Total 170 236 Output Total 400 1500 300 Balance -230 -1500 -64 Intake: Oral 170 236 Output: Urine 400 1500 300 Other: Voiding Method Toilet Toilet Bedpan Bedpan # Voids 1 1 1 Weight 103.4 kg 04/26/16 06:11 EKG Interpretations (text) EKG shows atrial fibrillation with moderately rapid ventricular response Assessment and Plan Plan: Assessment and plan #1 symptoms of progressive shortness of breath, combination of diastolic congestive heart failure acute on chronic, and exacerbation of COPD. Most recent echocardiogram with Doppler study performed in December revealed a normal left ventricular systolic function. #2 A. fib with moderately rapid ventricular response, patient has history of paroxysmal atrial fibrillation not currently on anticoagulation. #3 remote history of smoking #4 severe COPD on home O2 #5 hypertension # 6 hypokalemia, replaced #7 acute on chronic renal insufficiency #8 abnormal troponins, not consistent with acute coronary syndrome, likely secondary to oxygen supply and demand mismatch. Plan Continue current dose of IV Lasix. We will also check to see if patient has coverage for one of the newer anticoagulants, at this time we will initiate Eliquis 2-1/2 mg one tablet by mouth twice a day. DNP note has been reviewed, I agree with a documented findings and plan of care. Patient was seen and examined. <Guido Hairston - Last Filed: 04/26/16 14:23> Physical Exam Vitals: Vital Signs Temp Pulse Pulse Resp BP BP Pulse Ox 04/26/16 11:58 122 H 04/26/16 11:41 118 H 04/26/16 11:29 96.9 F L 124 H 20 139/97 97 04/26/16 11:23 124 H 24 04/26/16 11:14 97.8 F 110 H 24 138/73 95 04/26/16 09:05 129 H 24 04/26/16 07:43 97.4 F L 129 H 22 164/77 95 04/26/16 07:35 110 H 18 04/26/16 04:00 98.2 F 110 H 18 157/68 93 L 04/26/16 00:00 116 H 18 133/74 94 L 04/25/16 23:59 88 04/25/16 23:48 88 04/25/16 20:00 97.8 F 108 H 18 131/66 92 L 04/25/16 19:27 92 04/25/16 16:00 97.6 F 105 H 20 172/73 94 L 04/25/16 15:57 91 04/25/16 15:40 90 04/25/16 15:13 97.9 F 67 18 163/60 98 Intake and Output 04/25/16 04/26/16 04/26/16 22:59 06:59 14:59 Intake Total 170 236 Output Total 400 1500 800 Balance -220 -7810 -788 Intake: Oral 170 236 Output: Urine 400 1500 800 Other: Voiding Method Toilet Toilet Bedpan Bedpan # Voids 1 1 1 # Bowel Movements 2 Weight 103.4 kg 103.4 kg Patient Weight 04/27/16 06:59 Weight 103.4 kg Results 04/25/16 10:25 04/26/16 06:11 Cardiac Enzymes 04/25/16 04/26/16 Range/Units 20:07 01:07 Troponin I 0.031 0.039 H* (0.000-0.034) ng/mL Comprehensive Metabolic Panel 04/25/16 04/26/16 04/26/16 Range/Units 20:07 01:07 06:11 Sodium 143 (137-145) mmol/L Potassium 3.1 L 2.9 L* 3.8 (3.5-5.1) mmol/L Chloride 87 L (98-107) mmol/L Carbon Dioxide 46 H* (22-30) mmol/L BUN 26 H (7-17) mg/dL Creatinine 1.30 H (0.52-1.04) mg/dL Glucose 129 H (74-99) mg/dL Calcium 8.4 (8.4-10.2) mg/dL Current Medications Generic Name Dose Route Start Last Admin Trade Name Freq PRN Reason Stop Dose Admin Albuterol/Ipratropium 3 ml 04/25/16 15:56 04/25/16 23:56 Duoneb 0.5 Mg-3 Mg/3 Ml Soln INHALATION 3 ml RT-Q2H PRN Administration Shortness Of Breath Or Wheezing Albuterol/Ipratropium 3 ml 04/26/16 08:00 04/26/16 11:41 Duoneb 0.5 Mg-3 Mg/3 Ml Soln INHALATION 3 ml RT-QID PEPITO Administration Aspirin 325 mg 04/26/16 12:00 04/26/16 11:25 Aspirin PO 325 mg DAILY PEPITO Administration Bisacodyl 10 mg 04/25/16 22:39 Dulcolax RECTAL DAILY PRN Constipation Budesonide 1 mg 04/26/16 20:00 Pulmicort INHALATION RT-BID PEPITO Diltiazem HCl 240 mg 04/27/16 09:00 Cardizem Cd PO DAILY PEPITO Formoterol Fumarate 20 mcg 04/26/16 20:00 Perforomist INHALATION RT-BID PEPITO Furosemide 60 mg 04/26/16 00:00 04/26/16 08:59 Lasix IV 60 mg Q8HR PEPITO Administration Guaifenesin 1,200 mg 04/25/16 22:45 04/26/16 08:50 Mucinex PO 1,200 mg Q12HR PEPITO Administration Sodium Chloride 1,000 mls @ 20 mls/hr 04/25/16 14:15 04/26/16 09:15 Saline 0.9% IV Not Given .Q24H PEPITO Methylprednisolone Sodium Succinate 40 mg 04/26/16 18:00 Solu-Medrol IV Q6HR PEPITO Trimethoprim/Sulfamethoxazole 1 each 04/26/16 21:00 Bactrim Ds PO BID PEPITO Intake and Output 04/25/16 04/26/16 04/26/16 22:59 06:59 14:59 Intake Total 170 236 Output Total 400 1500 800 Balance -081 -9973 -479 Intake: Oral 170 236 Output: Urine 400 1500 800 Other: Voiding Method Toilet Toilet Bedpan Bedpan # Voids 1 1 1 # Bowel Movements 2 Weight 103.4 kg 103.4 kg Patient Weight 04/27/16 06:59 Weight 103.4 kg 04/26/16 06:11
[2016-04-26] MEDS ORDERED: DILTIAZEM ORAL 60 MG TAB PO ONE (12:15)
--- NOTE | 2016-04-26 12:21 | P.CNPUL ---
History of Present Illness Consult date: 04/26/16 Reason for consult: dyspnea, COPD, hypoxemia, abnormal CXR/CT Chief complaint: Shortness of breath History of present illness: This is a 75-year-old female who comes in with complaints of shortness of breath. She was admitted to the emergency department with a diagnosis of either COPD exacerbation and/or CHF. The patient appears to be more CHF and COPD although probably she has both conditions causing her shortness of breath. She does have a bit of a cough. Producing a small amount of yellow-green phlegm. No fever no chills. No chest pain. She has gained weight recently. She also has significant edema. Also seems be suffering from orthopnea. Feeling much better and breathing much better when she sitting up. Her past medical history is positive for atrial flutter COPD hypertension DJD pneumonia. Review of Systems 12 point review is performed. Shortness of breath cough phlegm production weight gain and peripheral edema. She also suffers from orthopnea. No fever no chills. No nausea vomiting or diarrhea. No chest pain. Past Medical History Past Medical History: Atrial Flutter, Heart Failure, COPD, Hypertension, Osteoarthritis (OA), Pneumonia Additional Past Medical History / Comment(s): home O2 dependent, bronchits,( ecoli in sputum 9-12-14 per micro). 3 liters . per son and pt"no narcotics-pt does'nt tolerate them well" History of Any Multi-Drug Resistant Organisms: None Reported Past Surgical History: No Surgical Hx Reported Additional Past Anesthesia/Blood Transfusion Reaction / Comment(s): No blood, anesthesia before when " teeth were pulled" per family Past Psychological History: No Psychological Hx Reported Additional Psychological History / Comment(s): currently at [facility]. Smoking Status: Former smoker Past Alcohol Use History: Occasional Additional Past Alcohol Use History / Comment(s): started smokin g at age 15, smoked 2 ppd, quit 2005 Past Drug Use History: None Reported - Past Family History Mother Family Medical History: Cancer Additional Family Medical History / Comment(s): breast cancer Father Family Medical History: Liver Disease Additional Family Medical History / Comment(s): cirrhosis caused from alcoholism per patient statement Medications and Allergies Home Medications Medication Instructions Recorded Confirmed Type Ubidecarenone [Coq-10] 100 mg PO TID 12/12/13 04/25/16 History Furosemide [Lasix] 40 mg PO DAILY 04/02/16 04/25/16 History Acetaminophen Tab [Tylenol Tab] 325 mg PO Q6H PRN 04/25/16 04/25/16 History Bisacodyl [Dulcolax] 10 mg RECTAL DAILY PRN 04/25/16 04/25/16 History Budesonide [Pulmicort] 0.25 mg INHALATION RT-BID 04/25/16 04/25/16 History Ipratropium-Albuterol Nebulize 3 ml INHALATION RT-Q4H PRN 04/25/16 04/25/16 History [Duoneb 0.5 mg-3 mg/3 ml Soln] Magnesium Hydroxide [Milk of 2,400 mg PO DAILY PRN 04/25/16 04/25/16 History Magnesia] Na Phos,M-B/Na Phos,Di-Ba [Fleet 133 ml RECTAL DAILY PRN 04/25/16 04/25/16 History Adult] Vitamins A and D [Vitamin A & D] 1 applic TOPICAL DAILY 04/25/16 04/25/16 History Zinc Oxide [Desitin] 1 applic TOPICAL DAILY PRN 04/25/16 04/25/16 History Allergies Allergy/AdvReac Type Severity Reaction Status Date / Time codeine Allergy Unknown Verified 04/25/16 10:40 hydromorphone HCl Allergy Unknown Verified 04/25/16 10:40 [From Dilaudid] Iodinated Contrast Media - Allergy Unknown Verified 04/25/16 10:40 Oral and iodine Allergy Swelling Verified 04/25/16 10:40 metolazone Allergy Unknown Verified 04/25/16 10:40 morphine Allergy Dyspnea Verified 04/25/16 10:40 shellfish derived Allergy Unknown Verified 04/25/16 10:40 Physical Exam Osteopathic Statement: *. No significant issues noted on an osteopathic structural exam other than those noted in the History and Physical/Consult. Vitals: Vital Signs Temp Pulse Pulse Resp BP BP Pulse Ox 04/26/16 11:58 122 H 04/26/16 11:41 118 H 04/26/16 11:29 96.9 F L 124 H 20 139/97 97 04/26/16 11:23 124 H 24 04/26/16 11:14 97.8 F 110 H 24 138/73 95 04/26/16 09:05 129 H 24 04/26/16 07:43 97.4 F L 129 H 22 164/77 95 04/26/16 07:35 110 H 18 04/26/16 04:00 98.2 F 110 H 18 157/68 93 L 04/26/16 00:00 116 H 18 133/74 94 L 04/25/16 23:59 88 04/25/16 23:48 88 04/25/16 20:00 97.8 F 108 H 18 131/66 92 L 04/25/16 19:27 92 04/25/16 16:00 97.6 F 105 H 20 172/73 94 L 04/25/16 15:57 91 04/25/16 15:40 90 04/25/16 15:13 97.9 F 67 18 163/60 98 Intake and Output 04/25/16 04/26/16 04/26/16 22:59 06:59 14:59 Intake Total 170 236 Output Total 400 1500 300 Balance -230 -1500 -64 Intake: Oral 170 236 Output: Urine 400 1500 300 Other: Voiding Method Toilet Toilet Bedpan Bedpan # Voids 1 1 1 # Bowel Movements 2 Weight 103.4 kg No acute distress, mildly tachypnea. Oriented 3. Sitting up in the chair at the bedside. HEENT examination is grossly unremarkable. Nasal O2 in place. Mucous membranes are moist. No oral lesions. Supple. Full range of motion. No adenopathy. Neck veins are not distended. Cardiovascular examination reveals regular rhythm rate. S1-S2 normal. No distinct murmurs noted. Lungs reveal a few scattered crackles at the bases. A few scattered mild wheezes. No some coarse rhonchi. Breath sounds are generally diminished. Abdomen soft bowel sounds are heard. Next extremities reveal some edema. It's 1+. His pitting. She has some chronic venous stasis changes as well. Results - Laboratory Findings CBC and BMP: 04/25/16 10:25 04/26/16 06:11 PT/INR, D-dimer PT 10.2 sec (9.0-12.0) 04/25/16 10:25 INR 1.0 (<1.1) 04/25/16 10:25 Abnormal lab findings: Abnormal Labs 04/25/16 04/26/16 04/26/16 20:07 01:07 01:07 Potassium 3.1 L 2.9 L* Chloride Carbon Dioxide BUN Creatinine Glucose Troponin I 0.039 H* 04/26/16 06:11 Potassium Chloride 87 L Carbon Dioxide 46 H* BUN 26 H Creatinine 1.30 H Glucose 129 H Troponin I - Diagnostic Findings Chest x-ray: image reviewed (Blood work and x-rays and medications are all reviewed.) Assessment and Plan (1) Acute exacerbation of chronic obstructive airways disease Status: Acute (2) Congestive heart failure Status: Acute (3) COPD (chronic obstructive pulmonary disease) Status: Acute (4) Paroxysmal atrial fibrillation Status: Acute (5) Purulent bronchitis Status: Acute Plan: The patient's medications x-rays and labs are all reviewed. She does have shortness of breath which is multifactorial part. Is probably partially related to underlying COPD exacerbation and paratracheal bronchitis but also CHF. Additional recommendations suggestions are forthcoming. Medications are reviewed. Time with Patient: Greater than 30
[2016-04-26 13:08] VITALS: BMI 37.9
[2016-04-26 14:16] LABS: Hemoglobin A1C 6.2 % (4.2-6.1)
--- NOTE | 2016-04-26 17:03 | PN ---
DATE OF SERVICE: 04/26/2016 PRESENTING COMPLAINT: Short of breath. INTERVAL HISTORY: This is a patient admitted with CHF exacerbation, atrial fibrillation and COPD exacerbation. Patient is still bringing up some sputum, but breathing is a shade better. Did tolerate some diet. Sitting up in a chair. Review of systems done for constitutional, cardiovascular, GI, pulmonary; relevant findings as above. Current medications are reviewed that include DuoNeb, Cardizem, IV Solu-Medrol. On examination, temperature 96.9, pulse 120, respiration 20, blood pressure 139/97, pulse ox 97% on 3 L. GENERAL APPEARANCE: Sitting up, not in distress. EYES: Pupils equal. Conjunctivae normal. NECK: JVD not raised. Mass not palpable. RESPIRATORY: Effort increased. LUNGS: Bilateral decreased crackles. Prolonged expiration. CARDIOVASCULAR: First and second sounds normal. Mild edema. ABDOMEN: Soft, nontender. Liver and spleen not palpable. PSYCHIATRY: Alert and oriented x3. Mood and affect normal. DERMATOLOGICAL: Bruising is present. INVESTIGATIONS: Telemetry shows heart rate to be in the 120s. Potassium 3.8. BUN 36, creatinine 1.30. ASSESSMENT: 1. Acute on chronic congestive heart failure exacerbation from recent echocardiogram; ejection fraction is not known; slow to respond. 2. Persistent atrial fibrillation with rapid ventricular rate, uncontrolled. 3. Acute chronic obstructive pulmonary disease exacerbation in an ex-smoker, slow to respond. 4. Acute hypercapnic respiratory failure, present on admission. 5. Chronic hypoxic respiratory failure. Patient is on 3 L of oxygen at home. 6. Morbid obesity with body mass index of 40.8. 7. Essential hypertension. 8. Primary osteoarthritis in multiple joints. 9. Seizure disorder. 10. Medical debility. Patient is slow to get about. 11. Acute purulent tracheobronchitis. PLAN: Continue current medication and treatment plan. Patient's sputum is being sent off. Care was discussed with the patient. Continue current medication and treatment plan. Follow electrolytes closely.
[2016-04-26] MEDS: methylPREDNISolone SOD SUCCI 40 MG/ML 1 ML VIAL IV SCH (17:07)
[2016-04-26] MEDS: INSULIN LISPRO (humaLOG) 300 UNIT/3 ML VIAL SQ SCH ×2 (17:15→21:55)
[2016-04-26] MEDS: BUDESONIDE 1 MG/2 ML NEBU INHALATION SCH (20:39)
[2016-04-26] MEDS: FORMOTEROL FUMARATE 20 MCG/2 ML NEBU INHALATION SCH (20:39)
[2016-04-26 20:47] LABS: Glucose,Whole Blood 185 mg/dL (75-99)
[2016-04-26] MEDS: SULFAMETHOX-TMP 800-160MG 1 EACH TAB PO SCH (23:12)
[2016-04-27] MEDS: methylPREDNISolone SOD SUCCI 40 MG/ML 1 ML VIAL IV SCH ×5 (00:04→23:52)
[2016-04-27 06:16] LABS: Glucose,Whole Blood 181 mg/dL (75-99)
[2016-04-27] MEDS: INSULIN LISPRO (humaLOG) 300 UNIT/3 ML VIAL SQ SCH ×4 (06:55→20:51)
[2016-04-27 07:41] LABS: Anion Gap 19 mmol/L; Blood Urea Nitrogen 39 mg/dL (7-17); Chloride 86 mmol/L (98-107); Glucose 172 mg/dL (74-99); Non-African American GFR(MDRD) 38 (>60 ml/min/1.73 sqM); Sodium 145 mmol/L (137-145)
[2016-04-27] MEDS: ASPIRIN 325 MG TAB PO SCH (07:45)
[2016-04-27] MEDS: FUROSEMIDE 10 MG/ML 10 ML VIAL IV SCH (07:45)
[2016-04-27] MEDS: SULFAMETHOX-TMP 800-160MG 1 EACH TAB PO SCH ×2 (07:46→20:49)
[2016-04-27] MEDS: guaiFENesin 600 MG TABLET.ER PO SCH ×2 (07:46→20:50)
[2016-04-27] MEDS: IPRATROPIUM-ALBUTEROL 3 ML NEB INHALATION SCH ×4 (07:50→19:57)
[2016-04-27 07:53] LABS: Carbon Dioxide >40 mmol/L (22-30)
[2016-04-27] MEDS: BUDESONIDE 1 MG/2 ML NEBU INHALATION SCH ×2 (07:59→19:57)
[2016-04-27] MEDS: FORMOTEROL FUMARATE 20 MCG/2 ML NEBU INHALATION SCH ×2 (07:59→19:57)
[2016-04-27] MEDS: SODIUM CHLORIDE 0.9% 1,000 ML IV SCH (08:18)
[2016-04-27] MEDS ORDERED: DILTIAZEM CD 240 MG CAP.ER.24H PO SCH (09:00)
[2016-04-27 12:21] LABS: Glucose,Whole Blood 171 mg/dL (75-99)
--- NOTE | 2016-04-27 14:29 | P.PN ---
Subjective This is a pleasant 75-year-old female with history of severe COPD and home O2 use, nicotine dependence, hypertension, she was most recently seen here in the hospital earlier this month, echo performed in December revealed normal left ventricular systolic function. Patient also has history of paroxysmal atrial fibrillation. She again presents to the hospital with symptoms of progressively worsening shortness of breath. EKG on admission showed atrial fibrillation with a moderately rapid ventricular response. Objective - Vital Signs Vital signs: Vital Signs Temp 96.5 F L 04/27/16 12:00 Pulse 90 04/27/16 12:04 Resp 18 04/27/16 12:00 BP 166/93 04/27/16 12:00 Pulse Ox 92 L 04/27/16 12:00 Intake & Output 04/26/16 04/27/16 04/27/16 18:59 06:59 18:59 Intake Total 416 712 Output Total 1200 875 Balance -784 -875 712 Weight 103.4 kg 102.6 kg Intake: Oral 416 712 Output: Urine 1200 875 Other: Voiding Method Toilet Toilet Toilet Bedpan Bedside Commode Bedside Commode # Voids 1 2 # Bowel Movements 2 0 0 - Exam PHYSICAL EXAMINATION: HEENT: Head is atraumatic, normocephalic. Pupils equal, round. Neck is supple. There is no elevated jugular venous pressure. HEART EXAMINATION: Heart S1 and S2 irregular irregular systolic murmur is heard. CHEST EXAMINATION: Lungs reveal coarse wheezing throughout. ABDOMEN: Soft, nontender. Bowel sounds are heard. No organomegaly noted. EXTREMITIES: 2+ peripheral pulses with 1+ evidence of peripheral edema and no calf tenderness noted. NEUROLOGIC patient is awake, alert and oriented -3. . - Labs CBC & Chem 7: 04/25/16 10:25 04/27/16 05:52 Labs: Abnormal Lab Results - Last 24 Hours (Table) 04/26/16 04/26/16 04/27/16 Range/Units 06:11 20:41 05:52 Chloride 86 L (98-107) mmol/L Carbon Dioxide >40 H* (22-30) mmol/L BUN 39 H (7-17) mg/dL Creatinine 1.37 H (0.52-1.04) mg/dL Glucose 172 H (74-99) mg/dL POC Glucose (mg/dL) 185 H (75-99) mg/dL Hemoglobin A1c 6.2 H (4.2-6.1) % 04/27/16 04/27/16 Range/Units 06:09 12:08 Chloride (98-107) mmol/L Carbon Dioxide (22-30) mmol/L BUN (7-17) mg/dL Creatinine (0.52-1.04) mg/dL Glucose (74-99) mg/dL POC Glucose (mg/dL) 181 H 171 H (75-99) mg/dL Hemoglobin A1c (4.2-6.1) % Microbiology - Last 24 Hours (Table) 04/26/16 20:45 Sputum Culture - Preliminary Sputum Assessment and Plan Plan: Assessment and plan #1 symptoms of progressive shortness of breath, combination of diastolic congestive heart failure acute on chronic, and exacerbation of COPD. Most recent echocardiogram with Doppler study performed in December revealed a normal left ventricular systolic function. #2 A. fib with moderately rapid ventricular response, patient has history of paroxysmal atrial fibrillation not currently on anticoagulation. #3 remote history of smoking #4 severe COPD on home O2 #5 hypertension # 6 hypokalemia, replaced #7 acute on chronic renal insufficiency #8 abnormal troponins, not consistent with acute coronary syndrome, likely secondary to oxygen supply and demand mismatch. Plan Discontinue IV Lasix .decrease aspirin to 81 mg daily. Start the patient on Eliquis 2-1/2 mg one tablet by mouth twice a day. We'll increase Cardizem to 360 for more optimal heart rate control. DNP note has been reviewed, I agree with a documented findings and plan of care. Patient was seen and examined.
--- NOTE | 2016-04-27 14:59 | XR ---
EXAMINATION TYPE: XR chest 2V DATE OF EXAM: 04/27/2016 1:50 PM COMPARISON: 04/25/2016 INDICATION: CHF TECHNIQUE: Frontal and lateral views of the chest are obtained. Images are presented 1450 hours for interpretation. FINDINGS: Heart size is mildly prominent. The pulmonary vasculature is at the upper limits of normal for size. Mild left lower lobe infiltrate may be present. Diaphragm appears well visualized. Left heart borders less well visualized. IMPRESSION: 1. Mild cardiomegaly. 2. Mild prominence of pulmonary vascular markings. Mild left lower lobe infiltrate may be present. Co rrelate for atypical pulmonary edema. Follow-up is recommended. Overload is likely present.
[2016-04-27] MEDS: FUROSEMIDE 40 MG TAB PO SCH (16:08)
[2016-04-27 16:55] LABS: Glucose,Whole Blood 175 mg/dL (75-99)
[2016-04-27 20:41] LABS: Glucose,Whole Blood 190 mg/dL (75-99)
[2016-04-27] MEDS: APIXABAN 2.5 MG TABLET PO SCH (20:51)
[2016-04-27] MEDS ORDERED: DAPTOmycin 500 MG in SODIUM CHLORIDE 0.9% 50 ML IV SCH (23:15)
[2016-04-28 06:20] LABS: Basophils # (A) 0.1 k/uL (0-0.2); Basophils % (A) 1 %; CH 27.3; CHCM 29.6; Eosinophils % (A) 0 %; HCT 40.8 % (34.0-46.0); HDW 2.62; HGB 11.9 gm/dL (11.4-16.0); Hypochromasia Marked; Luc # (Auto) 0.04; Luc % (Auto) 1; Lymphocytes # (A) 0.2 k/uL (1.0-4.8); Lymphocytes % (A) 2 %; MCHC 29.1 g/dL (31.0-37.0); MCV 92.7 fL (80.0-100.0); Mean Platelet Volume 7.7; Monocytes # (A) 0.3 k/uL (0-1.0); Monocytes % (A) 3 %; Neutrophils # (A) 8.4 k/uL (1.3-7.7); Neutrophils % (A) 93 %; RDW 15.6 % (11.5-15.5); WBC (Perox) 9.58
[2016-04-28 06:23] LABS: Glucose,Whole Blood 160 mg/dL (75-99)
[2016-04-28] MEDS: methylPREDNISolone SOD SUCCI 40 MG/ML 1 ML VIAL IV SCH ×2 (06:34→12:08)
[2016-04-28] MEDS: INSULIN LISPRO (humaLOG) 300 UNIT/3 ML VIAL SQ SCH ×2 (06:34→12:15)
[2016-04-28 06:40] LABS: Calcium 8.9 mg/dL (8.4-10.2); Potassium 3.9 mmol/L (3.5-5.1)
[2016-04-28] MEDS: IPRATROPIUM-ALBUTEROL 3 ML NEB INHALATION SCH ×4 (07:37→20:18)
[2016-04-28] MEDS: BUDESONIDE 1 MG/2 ML NEBU INHALATION SCH ×2 (07:37→20:18)
[2016-04-28] MEDS: FORMOTEROL FUMARATE 20 MCG/2 ML NEBU INHALATION SCH ×2 (07:37→20:18)
--- NOTE | 2016-04-28 07:59 | PN ---
DATE OF SERVICE: 04/27/2016 PRESENTING COMPLAINT: Shortness of breath. INTERVAL HISTORY: The patient was admitted with CHF exacerbation, atrial fibrillation, diabetes uncontrolled, COPD exacerbation. The patient continues to bring up sputum. Breathing is a shad better. Tolerated some diet. Does get tired easily. REVIEW OF SYSTEMS: Done for constitutional, cardiovascular, GI, pulmonary; relevant findings as above. Current medications are reviewed that include Eliquis for anticoagulation, Cardizem CD 360, IV Solu-Medrol, Mucinex and Bactrim. On examination, afebrile, pulse 130, respirations 18, blood pressure 136/85, pulse ox 92% on 3 liters. GENERAL APPEARANCE: Lying in bed, tired-appearing. EYES: Pupils equal. Conjunctivae normal. NECK: JVD not raised. Mass not palpable. RESPIRATORY: Effort normal. LUNGS: Decreased crackles. Prolonged expiration. Decreased breath sounds. CARDIOVASCULAR: Heart sounds irregular. No edema. ABDOMEN: Soft. Liver and spleen not palpable. PSYCHIATRY: Alert and oriented x3. Mood and affect normal. DERMATOLOGICAL: Bruising is present. INVESTIGATIONS: Potassium 4, bicarb 114, BUN 39, creatinine 1.37. Chest x-ray still shows some venous prominence and infiltrates. ASSESSMENT: 1. Acute congestive heart failure exacerbation from recent echocardiogram, ejection fraction not known, slow to respond. 2. Persistent atrial fibrillation with rapid ventricular rate, still remains uncontrolled. 3. Acute exacerbation in an ex-smoker. 4. Acute hypercapnic respiratory failure, present on admission. 5. Chronic hypoxic respiratory failure on 3 liters of oxygen at home. 6. Moderate obesity, body mass index of 40.8. 7. Essential hypertension. 8. Primary osteoarthritis in multiple joints. 9. Seizure disorder. 10. Medical debility patient is slow to get about. 11. Pneumonia, suspect gram-negative organism, especially in the right lower lobe, present on admission. 12. Acute urinary tract infection from VRE. PLAN: Patient is slow to respond. The patient's sputum cultures are pending. Blood cultures are negative. Urine is growing enterococcus faecium/VRE. Continue current medication and treatment plan. Will start the patient on daptomycin. We will get Dr. Daniels to consult.
[2016-04-28] MEDS: POTASSIUM CHLORIDE ER 10 MEQ TAB.ER.PRT PO SCH (08:03)
[2016-04-28] MEDS: guaiFENesin 600 MG TABLET.ER PO SCH ×2 (08:03→20:58)
[2016-04-28] MEDS: APIXABAN 2.5 MG TABLET PO SCH ×2 (08:03→20:58)
[2016-04-28] MEDS: ASPIRIN 81 MG CHEW PO SCH (08:04)
[2016-04-28] MEDS: FUROSEMIDE 40 MG TAB PO SCH ×2 (08:04→15:38)
[2016-04-28] MEDS: SULFAMETHOX-TMP 800-160MG 1 EACH TAB PO SCH (08:05)
[2016-04-28] MEDS ORDERED: DILTIAZEM CD 180 MG CAP.ER.24H PO SCH (09:00)
--- NOTE | 2016-04-28 12:05 | P.PN ---
Subjective Principal diagnosis: Acute exacerbation of diastolic congestive heart failure, acute exacerbation chronic obstructive pulmonary disease. This is a pleasant 75-year-old female patient with a known history of diastolic congestive heart failure, oxygen dependent chronic obstructive pulmonary disease , atrial fibrillation, remote history of smoking, hypertension, chronic renal insufficiency. She presented here with complaints of increasing shortness of breath, cough and congestion. He is being treated for both a COPD and heart failure exacerbation. She is seen today again in follow-up. She is sitting up in a chair at the bedside. She denies any worsening shortness of breath, cough or congestion. She has yellow productive sputum. She is maintaining O2 saturations in the low 90s on 3 L/m. She is afebrile. Her urine is positive for Enterococcus faecium VRE. The culture reveals no growth after 48 hours. Sputum cultures pending. She is currently on daptomycin and Bactrim. Objective - Vital Signs Vital signs: Vital Signs Temp 97.1 F L 04/28/16 08:00 Pulse 88 04/28/16 11:14 Resp 18 04/28/16 08:00 BP 150/80 04/28/16 08:00 Pulse Ox 92 L 04/28/16 08:00 Intake & Output 04/27/16 04/28/16 04/28/16 18:59 06:59 18:59 Intake Total 892 290 100 Output Total 700 Balance 892 -410 100 Weight 103.4 kg Intake: Intake, IV Titration 50 Amount DAPTOmycin 500 mg In 50 Sodium Chloride 0.9% 50 ml @ 100 mls/hr IV HS PEPITO Rx#:[id number] Oral 892 240 100 Output: Urine 700 Other: Voiding Method Toilet Toilet Bedside Commode Bedside Commode # Voids 2 # Bowel Movements 0 - Exam GENERAL EXAM: Obese. Alert, comfortable in no apparent distress. HEAD: Normocephalic. EYES: Normal reaction of pupils, equal size. NOSE: Clear with pink turbinates. THROAT: No erythema or exudates. NECK: No masses, no JVD. CHEST: No chest wall deformity. LUNGS: Equal air entry with faint crackles in the bilateral posterior bases. Diminished.. CVS: S1 and S2 normal with no audible murmurs, irregular rhythm. ABDOMEN: Obese, soft, normal bowel sounds, no guarding or rigidity. Extremities: There is trace peripheral edema. No clubbing, no cyanosis. Peripheral pulses are intact. - Labs CBC & Chem 7: 04/28/16 05:38 04/28/16 05:38 Labs: Abnormal Lab Results - Last 24 Hours (Table) 04/27/16 04/27/16 04/27/16 Range/Units 12:08 16:51 20:37 MCHC (31.0-37.0) g/dL RDW (11.5-15.5) % Neutrophils # (1.3-7.7) k/uL Lymphocytes # (1.0-4.8) k/uL Chloride (98-107) mmol/L Carbon Dioxide (22-30) mmol/L BUN (7-17) mg/dL Creatinine (0.52-1.04) mg/dL Glucose (74-99) mg/dL POC Glucose (mg/dL) 171 H 175 H 190 H (75-99) mg/dL TSH (0.465-4.680) mIU/L 04/28/16 04/28/16 04/28/16 Range/Units 05:38 05:38 06:21 MCHC 29.1 L (31.0-37.0) g/dL RDW 15.6 H (11.5-15.5) % Neutrophils # 8.4 H (1.3-7.7) k/uL Lymphocytes # 0.2 L (1.0-4.8) k/uL Chloride 82 L (98-107) mmol/L Carbon Dioxide 48 H* (22-30) mmol/L BUN 50 H (7-17) mg/dL Creatinine 1.80 H (0.52-1.04) mg/dL Glucose 180 H (74-99) mg/dL POC Glucose (mg/dL) 160 H (75-99) mg/dL TSH 0.383 L (0.465-4.680) mIU/L Microbiology - Last 24 Hours (Table) 04/26/16 20:45 Gram Stain - Preliminary Sputum Sputum Culture - Preliminary Assessment and Plan Plan: Impression: #1 Acute exacerbation of chronic diastolic congestive heart failure. #2 Acute exacerbation of oxygen dependent chronic obstructive pulmonary disease , complicated by purulent tracheobronchitis. #3 Atrial fibrillation with varying ventricular response, anticoagulated with a request. #4 Urinary tract infection secondary to enterococcus faecium, VRE. #5 Hypertension. #6 Osteoarthritis. Plan: The patient was seen and evaluated by Dr. Taylor. Her most recent chest x-ray and labs were reviewed. There is evidence of mild cardiomegaly and mild prominence of the pulmonary vascular markings. There is also some limited left lower lobe infiltrate. She is being treated for both CHF and suspected tracheobronchitis. We'll continue with her current antibiotics, bronchodilators and Pulmicort inhalations. We will switch her IV Solu-Medrol to oral. We'll see her on an as-needed basis.
[2016-04-28 12:23] LABS: Glucose,Whole Blood 134 mg/dL (75-99)
[2016-04-28] MEDS: SODIUM CHLORIDE 0.9% 1,000 ML IV SCH (13:41)
--- NOTE | 2016-04-28 15:21 | P.CONS ---
History of Present Illness - Reason for Consult Consult date: 04/28/16 VRE in the urine culture - History of Present Illness This is a 75-year-old female. She presented to [facility] on April 25 for [facility] complaining of increased shortness of breath and cough with yellow and green sputum production. She did not have any fever or chills. She had a chest x-ray that showed cardiomegaly, interstitial densities, correlate for CHF and pulmonary vascular congestion. Some may be chronic. She was also in atrial fibrillation with rapid ventricular response with history of proximal atrial fibrillation. She was started on IV Lasix and admitted to the selective care unit. Her last echocardiogram showed a normal EF. She has been seen in consultation by cardiology and is now on oral Lasix. She has also been started on eliquis. Patient is also followed by pulmonary medicine for acute exacerbation of COPD and CHF. She is currently on oral prednisone, Bactrim, Pulmicort, Perforomist and DuoNeb treatments. Patient states that her breathing status is much improved since she has been here and she is anticipating discharge back to [facility]. Blood culture showing no growth at 48 hours. Sputum culture is in progress. Urinalysis was cloudy, leukoesterase small, WBC 7, bacteria occasional. Urine culture is showing 50 200,000 colonies of VRE for which she has been started on daptomycin. Patient denied having any urinary frequency, pain with urination or burning prior to her admission and she continues to deny that at this time. She has not had a Marquez catheter in. She states she does not recall having a urinary tract infection in many many years. She is normally on home O2 at 3 L nasal cannula. Review of Systems All systems: negative Constitutional: Denies chills, Denies fever Eyes: denies blurred vision, denies pain Ears, nose, mouth and throat: Denies headache, Denies sore throat Cardiovascular: Reports decreased exercise tolerance, Reports dyspnea on exertion, Reports leg edema, Reports shortness of breath, Denies chest pain, Denies lightheadedness, Denies syncope Respiratory: Reports cough, Reports cough with sputum, Reports dyspnea, Reports home oxygen, Denies hemoptysis Gastrointestinal: Denies abdominal pain, Denies diarrhea, Denies nausea, Denies vomiting Genitourinary: Denies dysuria, Denies hematuria Musculoskeletal: Denies myalgias Integumentary: Denies pruritus, Denies rash Neurological: Denies numbness, Denies weakness Psychiatric: Denies anxiety, Denies depression Endocrine: Denies fatigue, Denies weight change Past Medical History Past Medical History: Atrial Flutter, Heart Failure, COPD, Hypertension, Osteoarthritis (OA), Pneumonia Additional Past Medical History / Comment(s): Chronic hypercapnic respiratory failure on home O2, bronchits,( ecoli in sputum 9-12-14 per micro). 3 liters . per son and pt"no narcotics-pt does'nt tolerate them well" History of Any Multi-Drug Resistant Organisms: VRE Year Discovered:: 04/25/16 MDRO Source:: Urine Past Surgical History: No Surgical Hx Reported Additional Past Surgical History / Comment(s): Bilateral cataract removal and intraocular lens implants, right breast lumpectomy noncancerous. Additional Past Anesthesia/Blood Transfusion Reaction / Comm: No blood, anesthesia before when " teeth were pulled" per family Past Psychological History: No Psychological Hx Reported Additional Psychological History / Comment(s): currently at [facility]. Smoking Status: Former smoker Past Alcohol Use History: Occasional Additional Past Alcohol Use History / Comment(s): started smokin g at age 15, smoked 2 ppd, quit 2005. Patient denies medical marijuana, marijuana, street drug or alcohol use. Patient lives at home and her son lives with her. There is a cat in the home. She worked in the past in the office setting. Past Drug Use History: None Reported - Past Family History Mother Family Medical History: Cancer Additional Family Medical History / Comment(s): breast cancer Father Family Medical History: Liver Disease Additional Family Medical History / Comment(s): cirrhosis caused from alcoholism per patient statement Medications and Allergies Home Medications Medication Instructions Recorded Confirmed Type Ubidecarenone [Coq-10] 100 mg PO TID 12/12/13 04/25/16 History Furosemide [Lasix] 40 mg PO DAILY 04/02/16 04/25/16 History Acetaminophen Tab [Tylenol Tab] 325 mg PO Q6H PRN 04/25/16 04/25/16 History Bisacodyl [Dulcolax] 10 mg RECTAL DAILY PRN 04/25/16 04/25/16 History Budesonide [Pulmicort] 0.25 mg INHALATION RT-BID 04/25/16 04/25/16 History Ipratropium-Albuterol Nebulize 3 ml INHALATION RT-Q4H PRN 04/25/16 04/25/16 History [Duoneb 0.5 mg-3 mg/3 ml Soln] Magnesium Hydroxide [Milk of 2,400 mg PO DAILY PRN 04/25/16 04/25/16 History Magnesia] Na Phos,M-B/Na Phos,Di-Ba [Fleet 133 ml RECTAL DAILY PRN 04/25/16 04/25/16 History Adult] Vitamins A and D [Vitamin A & D] 1 applic TOPICAL DAILY 04/25/16 04/25/16 History Zinc Oxide [Desitin] 1 applic TOPICAL DAILY PRN 04/25/16 04/25/16 History Allergies Allergy/AdvReac Type Severity Reaction Status Date / Time codeine Allergy Unknown Verified 04/25/16 10:40 hydromorphone HCl Allergy Unknown Verified 04/25/16 10:40 [From Dilaudid] Iodinated Contrast Media - Allergy Unknown Verified 04/25/16 10:40 Oral and iodine Allergy Swelling Verified 04/25/16 10:40 metolazone Allergy Unknown Verified 04/25/16 10:40 morphine Allergy Dyspnea Verified 04/25/16 10:40 shellfish derived Allergy Unknown Verified 04/25/16 10:40 Physical Exam Vitals: Vital Signs Temp Pulse Pulse Pulse Resp BP Pulse Ox 04/28/16 07:49 85 04/28/16 07:39 88 04/28/16 03:42 128 H 139 H 16 04/28/16 03:41 97.2 F L 128 H 139 H 16 141/74 94 L 04/28/16 00:00 96.9 F L 105 H 107 H 16 146/68 94 L 04/27/16 20:26 85 04/27/16 20:17 85 04/27/16 20:00 134 H 114 H 18 04/27/16 19:59 85 04/27/16 19:56 96.9 F L 114 H 18 136/85 92 L 04/27/16 16:57 84 04/27/16 16:44 88 04/27/16 14:58 18 04/27/16 14:57 97 F L 83 18 135/78 92 L 04/27/16 12:04 90 04/27/16 12:00 96.5 F L 119 H 18 166/93 92 L 04/27/16 11:56 90 Intake and Output 04/27/16 04/28/16 04/28/16 22:59 06:59 14:59 Intake Total 420 50 Output Total 350 350 Balance 70 -300 Intake: Intake, IV Titration 50 Amount DAPTOmycin 500 mg In 50 Sodium Chloride 0.9% 50 ml @ 100 mls/hr IV HS PEPITO Rx#:[id number] Oral 420 Output: Urine 350 350 Other: Voiding Method Toilet Toilet Bedside Commode Bedside Commode # Voids 2 2 Weight 102.6 kg 103.4 kg Gen: This is a 75-year-old morbidly obese female. She is sitting up in a chair at the bedside and appears to be in no acute distress. HEENT: Head is atraumatic, normocephalic. Pupils equal, round. Sclerae is anicteric. Oral mucous membranes are moist. No thrush noted. NECK: Supple. No JVD. No lymphadenopathy. No thyromegaly. LUNGS: Diminished with crackles bilaterally. No wheezes. No intercostal retractions. HEART: Irregular rate and rhythm. No murmur. ABDOMEN: Morbidly obese. Soft. Bowel sounds are present. No masses. No tenderness. EXTREMITIES: Legs are in a dependent position and move to foot rest. 1+ bilateral pedal edema. Patient has a small wound to the right second toe. NEUROLOGICAL: Patient is awake, alert and oriented x3. Cranial nerves 2 through 12 are grossly intact. Results Results: Laboratory Results WBC 9.0 k/uL (3.8-10.6) 04/28/16 05:38 RBC 4.40 m/uL (3.80-5.40) 04/28/16 05:38 Hgb 11.9 gm/dL (11.4-16.0) 04/28/16 05:38 Hct 40.8 % (34.0-46.0) 04/28/16 05:38 MCV 92.7 fL (80.0-100.0) 04/28/16 05:38 MCH 27.0 pg (25.0-35.0) 04/28/16 05:38 MCHC 29.1 g/dL (31.0-37.0) L 04/28/16 05:38 RDW 15.6 % (11.5-15.5) H 04/28/16 05:38 Plt Count 179 k/uL (150-450) 04/28/16 05:38 Neutrophils % 93 % 04/28/16 05:38 Lymphocytes % 2 % 04/28/16 05:38 Monocytes % 3 % 04/28/16 05:38 Eosinophils % 0 % 04/28/16 05:38 Basophils % 1 % 04/28/16 05:38 Neutrophils # 8.4 k/uL (1.3-7.7) H 04/28/16 05:38 Lymphocytes # 0.2 k/uL (1.0-4.8) L 04/28/16 05:38 Monocytes # 0.3 k/uL (0-1.0) 04/28/16 05:38 Eosinophils # 0.0 k/uL (0-0.7) 04/28/16 05:38 Basophils # 0.1 k/uL (0-0.2) 04/28/16 05:38 Hypochromasia Marked 04/28/16 05:38 PT 10.2 sec (9.0-12.0) 04/25/16 10:25 INR 1.0 (<1.1) 04/25/16 10:25 APTT 21.3 sec (22.0-30.0) L 04/25/16 10:25 Sodium 141 mmol/L (137-145) 04/28/16 05:38 Potassium 3.9 mmol/L (3.5-5.1) 04/28/16 05:38 Chloride 82 mmol/L (98-107) L 04/28/16 05:38 Carbon Dioxide 48 mmol/L (22-30) H* 04/28/16 05:38 Anion Gap 11 mmol/L 04/28/16 05:38 BUN 50 mg/dL (7-17) H 04/28/16 05:38 Creatinine 1.80 mg/dL (0.52-1.04) H 04/28/16 05:38 Est GFR (MDRD) Af Amer 33 (>60 ml/min/1.73 sqM) 04/28/16 05:38 Est GFR (MDRD) Non-Af 28 (>60 ml/min/1.73 sqM) 04/28/16 05:38 Glucose 180 mg/dL (74-99) H 04/28/16 05:38 POC Glucose (mg/dL) 134 mg/dL (75-99) H 04/28/16 11:59 POC Glu [employer] ID Velia Whitten 04/28/16 11:[address] Glu mg/dL 131 mg/dL 04/26/16 06:11 Hemoglobin A1c 6.2 % (4.2-6.1) H 04/26/16 06:11 Plasma Lactic Acid Francisco Javier 1.9 mmol/L (0.7-2.0) 04/25/16 10:25 Calcium 8.9 mg/dL (8.4-10.2) 04/28/16 05:38 Magnesium 2.1 mg/dL (1.6-2.3) 04/25/16 10:25 Total Bilirubin 0.7 mg/dL (0.2-1.3) 04/25/16 10:25 AST 22 U/L (14-36) 04/25/16 10:25 ALT 27 U/L (9-52) 04/25/16 10:25 Alkaline Phosphatase 78 U/L (38-126) 04/25/16 10:25 Total Creatine Kinase <20 U/L (30-135) L 04/25/16 10:25 CK-MB (CK-2) 0.4 ng/mL (0.0-2.4) 04/25/16 10:25 CK-MB (CK-2) Rel Index 0.0 04/25/16 10:25 Troponin I 0.039 ng/mL (0.000-0.034) H* 04/26/16 01:07 NT-Pro-B Natriuret Pep 6710 pg/mL 04/25/16 10:25 Total Protein 7.0 g/dL (6.3-8.2) 04/25/16 10:25 Albumin 3.5 g/dL (3.5-5.0) 04/25/16 10:25 TSH 0.383 mIU/L (0.465-4.680) L 04/28/16 05:38 Free T4 1.28 ng/dL (0.78-2.19) 04/28/16 05:38 Urine Color Yellow 04/25/16 11:41 Urine Appearance Cloudy (Clear) H 04/25/16 11:41 Urine pH 6.5 (5.0-8.0) 04/25/16 11:41 Ur Specific Blackey 1.005 (1.001-1.035) 04/25/16 11:41 Urine Protein 1+ (Negative) H 04/25/16 11:41 Urine Glucose (UA) Negative (Negative) 04/25/16 11:41 Urine Ketones Negative (Negative) 04/25/16 11:41 Urine Blood Trace (Negative) H 04/25/16 11:41 Urine Nitrate Negative (Negative) 04/25/16 11:41 Urine Bilirubin Negative (Negative) 04/25/16 11:41 Urine Urobilinogen <2.0 mg/dL (<2.0) 04/25/16 11:41 Ur Leukocyte Esterase Small (Negative) H 04/25/16 11:41 Urine RBC 6 /hpf (0-5) H 04/25/16 11:41 Urine WBC 7 /hpf (0-5) H 04/25/16 11:41 Ur Squamous Epith Cells 4 /hpf (0-4) 04/25/16 11:41 Urine Bacteria Occasional /hpf (None) H 04/25/16 11:41 Urine Mucus Rare /hpf (None) H 04/25/16 11:41 CBC & Chem 7: 04/28/16 05:38 04/28/16 05:38 Labs: Abnormal Lab Results - Last 24 Hours (Table) 04/27/16 04/27/16 04/27/16 Range/Units 12:08 16:51 20:37 MCHC (31.0-37.0) g/dL RDW (11.5-15.5) % Neutrophils # (1.3-7.7) k/uL Lymphocytes # (1.0-4.8) k/uL Chloride (98-107) mmol/L Carbon Dioxide (22-30) mmol/L BUN (7-17) mg/dL Creatinine (0.52-1.04) mg/dL Glucose (74-99) mg/dL POC Glucose (mg/dL) 171 H 175 H 190 H (75-99) mg/dL TSH (0.465-4.680) mIU/L 04/28/16 04/28/16 04/28/16 Range/Units 05:38 05:38 06:21 MCHC 29.1 L (31.0-37.0) g/dL RDW 15.6 H (11.5-15.5) % Neutrophils # 8.4 H (1.3-7.7) k/uL Lymphocytes # 0.2 L (1.0-4.8) k/uL Chloride 82 L (98-107) mmol/L Carbon Dioxide 48 H* (22-30) mmol/L BUN 50 H (7-17) mg/dL Creatinine 1.80 H (0.52-1.04) mg/dL Glucose 180 H (74-99) mg/dL POC Glucose (mg/dL) 160 H (75-99) mg/dL TSH 0.383 L (0.465-4.680) mIU/L Microbiology - Last 24 Hours (Table) 04/26/16 20:45 Gram Stain - Preliminary Sputum Sputum Culture - Preliminary Assessment and Plan Plan: This is a 75-year-old female who presented to the hospital with acute on chronic diastolic heart failure along with acute exacerbation of COPD in a patient with chronic hypercapnic respiratory failure on home O2 at 3 L nasal cannula. Patient presented from [facility] with plan to return there at discharge. She also presents with possible acute kidney injury. Urinalysis was done and culture returned positive for VRE and patient started on daptomycin. Patient is asymptomatic and this appears to be colonization for which daptomycin will be discontinued. She is currently on Bactrim for acute tracheobronchitis by pulmonary medicine. Continue supportive care. Further recommendations as patient progresses. The above dictated assessment and findings were discussed with Dr. Daniels. The impression and plan of care have been directed as dictated. Dai Holliday nurse practitioner acting as scribe for Dr. Daniels. Time with Patient: Greater than 30
--- NOTE | 2016-04-28 15:21 | P.PN ---
Subjective This is a pleasant 75-year-old female with a history of severe COPD on home O2, nicotine dependence, hypertension. She was most recently seen here in the hospital earlier this month, cardiogram performed in December revealed normal left ventricular systolic function. Patient also has a history of paroxysmal atrial fibrillation. She again presents to the hospital with symptoms of progressively worsening shortness of breath. She showed atrial fibrillation with rapid ventricular response. Patient today, patient says she' s feeling better. She continues to have a cough which seems to be chronic for her. She is currently on diltiazem 360 mg daily and apixaban 2.5 mg by mouth twice a day. Objective - Vital Signs Vital signs: Vital Signs Temp 97.1 F L 04/28/16 08:00 Pulse 128 H 04/28/16 12:00 Resp 18 04/28/16 12:00 BP 112/68 04/28/16 12:00 Pulse Ox 92 L 04/28/16 12:00 Intake & Output 04/27/16 04/28/16 04/28/16 18:59 06:59 18:59 Intake Total 892 290 336 Output Total 700 0 Balance 892 -410 336 Weight 103.4 kg Intake: Intake, IV Titration 50 Amount DAPTOmycin 500 mg In 50 Sodium Chloride 0.9% 50 ml @ 100 mls/hr IV HS PEPITO Rx#:[id number] Oral 892 240 336 Output: Urine 700 0 Other: Voiding Method Toilet Toilet Bedside Commode Bedside Commode # Voids 2 # Bowel Movements 0 - Exam PHYSICAL EXAMINATION: HEENT: Head is atraumatic, normocephalic. Pupils equal, round. Neck is supple. There is no elevated jugular venous pressure. HEART EXAMINATION: Heart sounds irregularly irregular, S1 and S2 with a systolic murmur. CHEST EXAMINATION: Lungs are clear to auscultation and precussion. No chest wall tenderness is noted on palpation or with deep breathing. ABDOMEN: Soft, obese, nontender. Bowel sounds are heard. No organomegaly noted. EXTREMITIES: 2+ peripheral pulses with evidence of trace peripheral edema and no calf tenderness noted. NEUROLOGIC patient is awake, alert and oriented x3. . - Labs CBC & Chem 7: 04/28/16 05:38 04/28/16 05:38 Labs: Abnormal Lab Results - Last 24 Hours (Table) 04/27/16 04/27/1617 Range/Units 16:51 20:37 05:38 MCHC (31.0-37.0) g/dL RDW (11.5-15.5) % Neutrophils # (1.3-7.7) k/uL Lymphocytes # (1.0-4.8) k/uL Chloride 82 L (98-107) mmol/L Carbon Dioxide 48 H* (22-30) mmol/L BUN 50 H (7-17) mg/dL Creatinine 1.80 H (0.52-1.04) mg/dL Glucose 180 H (74-99) mg/dL POC Glucose (mg/dL) 175 H 190 H (75-99) mg/dL TSH 0.383 L (0.465-4.680) mIU/L 04/28/16 04/28/16 04/28/16 Range/Units 05:38 06:21 11:59 MCHC 29.1 L (31.0-37.0) g/dL RDW 15.6 H (11.5-15.5) % Neutrophils # 8.4 H (1.3-7.7) k/uL Lymphocytes # 0.2 L (1.0-4.8) k/uL Chloride (98-107) mmol/L Carbon Dioxide (22-30) mmol/L BUN (7-17) mg/dL Creatinine (0.52-1.04) mg/dL Glucose (74-99) mg/dL POC Glucose (mg/dL) 160 H 134 H (75-99) mg/dL TSH (0.465-4.680) mIU/L Microbiology - Last 24 Hours (Table) 04/26/16 20:45 Gram Stain - Preliminary Sputum Sputum Culture - Preliminary Assessment and Plan Plan: #1 symptoms of worsening shortness of breath the related to combination of acute on chronic diastolic congestive heart failure as well as exacerbation of COPD #2 atrial fibrillation with rapid ventricular response, on Cardizem 360 mg by mouth daily, heart rates continue to fluctuate #3 COPD on home O2 #4 hypertension #5 acute on chronic renal insufficiency #6 abnormal troponins, 9 consistent with acute coronary syndrome, likely secondary to oxygen supply and demand mismatch From cardiology's perspective medications were reviewed we will continue the same. We will continue to follow the patient's heart rate closely and make further adjustments accordingly. Continue to monitor renal function as well as daily weights and intake and output. Further recommendations to follow. TAXI CAB DRIVER note has been reviewed, I agree with a documented findings and plan of care. Patient was seen and examined.
[2016-04-28 17:13] LABS: Glucose,Whole Blood 218 mg/dL (75-99)
[2016-04-28] MEDS: SULFAMETHOX-TMP 400-80MG 1 EACH TAB PO SCH (20:59)
--- NOTE | 2016-04-28 21:23 | P.CON ---
Consult Note - . Consult date: 04/28/16 Assessment/Plan:: This is a 75-year-old female. She presented to [facility] on April 25 for [facility] complaining of increased shortness of breath and cough with yellow and green sputum production. She did not have any fever or chills. She had a chest x-ray that showed cardiomegaly, interstitial densities, correlate for CHF and pulmonary vascular congestion. Some may be chronic. She was also in atrial fibrillation with rapid ventricular response with history of proximal atrial fibrillation. She was started on IV Lasix and admitted to the selective care unit. Her last echocardiogram showed a normal EF. She has been seen in consultation by cardiology and is now on oral Lasix. She has also been started on eliquis. Patient is also followed by pulmonary medicine for acute exacerbation of COPD and CHF. She is currently on oral prednisone, Bactrim, Pulmicort, Perforomist and DuoNeb treatments. Patient states that her breathing status is much improved since she has been here and she is anticipating discharge back to [facility]. Blood culture showing no growth at 48 hours. Sputum culture is in progress. Urinalysis was cloudy, leukoesterase small, WBC 7, bacteria occasional. Urine culture is showing 50- 100,000 colonies of VRE for which she has been started on daptomycin. Patient denied having any urinary frequency, pain with urination or burning prior to her admission and she continues to deny that at this time. She has not had a Marquez catheter in. She states she does not recall having a urinary tract infection in many many years. She is normally on home O2 at 3 L nasal cannula. please see the consult note as dictated by nurse practitioner Dai Pereraestuardo. Exam reveals this pleasant 75-year-old woman who is not in acute distress. She does relate her breathing was significantly worse at the time of admission and is now improved. She has still some sputum production but it's improved. This point in time she has no other new acute complaints. She is denying any urinary symptoms as noted. 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 The be areas colonized and does not require therapy at this point in time. She is instructed if she does develop significant urinary symptoms to report them so different course of action can be obtained. She relates that she received steroid and antibiotic therapy with Bactrim her breathing is much improved. She'll be treated with eliquis was for her atrial fibrillation with rapid ventricular response. She will not require long-term IV antibiotic therapy I agree with the evaluation, assessment and plan as dictated by nurse practitioner Mrs. Dai Holliday.
--- NOTE | 2016-04-28 21:44 | PN ---
DATE OF SERVICE: 04/28/2016 PRESENTING COMPLAINT: Short of breath, cough. INTERVAL HISTORY: This is a patient admitted with CHF exacerbation, atrial fibrillation, COPD exacerbation. Patient is still bringing up some yellow sputum. Breathing is somewhat better. Tired, tolerating a diet. Son is at the bedside. Review of systems done for constitutional, cardiovascular, GI, pulmonary; relevant findings as above. Current medications are reviewed and include: 1. Eliquis. 2. DuoNeb. 3. Cardizem CD. 4. P.o. Lasix. On examination, temperature 97.1, heart rate 120s, respirations 18, blood pressure 112/68, pulse ox 92% on 3L. GENERAL APPEARANCE: Lying in bed, tired-appearing. EYES: Pupils equal. Conjunctivae normal. NECK: JVD unable to assess. Mass not palpable. RESPIRATORY: Effort increased. LUNGS: A few expiratory crackles. Prolonged expiration and wheezing. CARDIOVASCULAR: Heart sounds irregular. No edema. ABDOMEN: Soft, nontender. Liver and spleen and spleen not palpable. PSYCHIATRY: Alert and oriented x3. Mood and affect normal. DERMATOLOGICAL: Bruising is present. INVESTIGATIONS: White count 9, hemoglobin 11.9. Potassium 3.9, BUN 50, creatinine 1.80. Accu-Cheks are noted. ASSESSMENT: 1. Acute congestive heart failure exacerbation from recent echocardiogram, ejection fraction not known. 2. Persistent atrial fibrillation with rapid ventricular rate, still rate remains uncontrolled. 3. Acute chronic obstructive pulmonary disease exacerbation in an ex-smoker. 4. Acute hypercapnic respiratory failure, present on admission. 5. Chronic hypoxic respiratory failure on 3L oxygen at home. 6. Morbid obesity, body mass index of 40.8. 7. Essential hypertension. 8. Primary osteoarthritis in multiple joints. 9. Seizure disorder. 10. Medical debility. Patient is rather tired. 11. Pneumonia, suspect gram-negative orgasm, especially in the right lower lobe, present on admission. 12. Acute urinary tract infection from vancomycin-resistant Enterococcus. PLAN: Patient still has A. fib. uncontrolled. Patient still has quite a bit of wheezing, will be treated for VRE. Await input from Dr. Daniels. Care was discussed with son at the bedside. Follow.
[2016-04-29] MEDS: BUDESONIDE 1 MG/2 ML NEBU INHALATION SCH ×2 (08:36→20:09)
[2016-04-29] MEDS: FORMOTEROL FUMARATE 20 MCG/2 ML NEBU INHALATION SCH ×2 (08:36→20:09)
[2016-04-29] MEDS: IPRATROPIUM-ALBUTEROL 3 ML NEB INHALATION SCH ×4 (08:36→20:09)
[2016-04-29] MEDS: SULFAMETHOX-TMP 400-80MG 1 EACH TAB PO SCH ×2 (10:17→20:32)
[2016-04-29] MEDS: VERAPAMIL SR 240 MG TABLET.ER PO SCH ×2 (10:17→20:33)
[2016-04-29] MEDS: guaiFENesin 600 MG TABLET.ER PO SCH (10:18)
[2016-04-29] MEDS: APIXABAN 2.5 MG TABLET PO SCH ×2 (10:18→20:32)
[2016-04-29] MEDS: POTASSIUM CHLORIDE ER 10 MEQ TAB.ER.PRT PO SCH (10:18)
[2016-04-29] MEDS: predniSONE 20 MG TAB PO SCH (10:18)
[2016-04-29] MEDS: ASPIRIN 81 MG CHEW PO SCH (10:19)
[2016-04-29] MEDS: FUROSEMIDE 40 MG TAB PO SCH ×2 (10:19→15:30)
--- NOTE | 2016-04-29 14:40 | P.PN ---
Subjective This is a pleasant 75-year-old female with a history of severe COPD on home O2, nicotine dependence, hypertension. She was most recently seen here in the hospital earlier this month, cardiogram performed in December revealed normal left ventricular systolic function. Patient also has a history of paroxysmal atrial fibrillation. She again presents to the hospital with symptoms of progressively worsening shortness of breath. EKG showed atrial fibrillation with rapid ventricular response. Patient says she's feeling better and feels her breathing has improved since yesterday. She continues to have a cough which seems to be chronic for her. She is currently on diltiazem 360 mg daily with poorly controlled ventricular rates. She is on apixaban 2.5 mg by mouth twice a day. Objective - Vital Signs Vital signs: Vital Signs Temp 97.1 F L 04/29/16 08:00 Pulse 93 04/29/16 12:08 Resp 19 04/29/16 12:00 BP 111/76 04/29/16 12:00 Pulse Ox 94 L 04/29/16 12:00 Intake & Output 04/28/16 04/29/16 04/29/16 18:59 06:59 18:59 Intake Total 336 Output Total 0 2049 0 Balance 336 -205 0 Weight 104.5 kg Intake: Oral 336 Output: Urine 0 2049 0 Other: Voiding Method Toilet # Voids 2 - Exam PHYSICAL EXAMINATION: HEENT: Head is atraumatic, normocephalic. Pupils equal, round. Neck is supple. There is no elevated jugular venous pressure. HEART EXAMINATION: Heart sounds irregularly irregular, S1 and S2 with a systolic murmur. CHEST EXAMINATION: Lungs reveal coarse expiratory wheezes throughout. No chest wall tenderness is noted on palpation or with deep breathing. ABDOMEN: Soft, obese, nontender. Bowel sounds are heard. No organomegaly noted. EXTREMITIES: 2+ peripheral pulses with evidence of 1+ peripheral edema and no calf tenderness noted. NEUROLOGIC patient is awake, alert and oriented x3. . - Labs CBC & Chem 7: 04/28/16 05:38 04/28/16 05:38 Labs: Abnormal Lab Results - Last 24 Hours (Table) 04/28/16 Range/Units 17:06 POC Glucose (mg/dL) 218 H (75-99) mg/dL Microbiology - Last 24 Hours (Table) 04/26/16 20:45 Gram Stain - Final Sputum Sputum Culture - Final Assessment and Plan Plan: #1 symptoms of worsening shortness of breath the related to combination of acute on chronic diastolic congestive heart failure as well as exacerbation of COPD #2 atrial fibrillation with rapid ventricular response, on Cardizem 360 mg by mouth daily, heart rates continue to fluctuate #3 COPD on home O2 #4 hypertension #5 acute on chronic renal insufficiency #6 abnormal troponins, 9 consistent with acute coronary syndrome, likely secondary to oxygen supply and demand mismatch From cardiology's perspective, we will stop cardizem and start the patient on verapamil. We will continue to follow the patient's heart rate closely and make further adjustments accordingly. Continue to monitor renal function as well as daily weights and intake and output. Further recommendations to follow. LYE MACHINE OPERATOR note has been reviewed, I agree with a documented findings and plan of care. Patient was seen and examined.
[2016-04-29] MEDS: SODIUM CHLORIDE 0.9% 1,000 ML IV SCH (16:05)
--- NOTE | 2016-04-29 16:55 | P.PN ---
Subjective Principal diagnosis: VRE and urine This is a 75-year-old female. She presented to [facility] on April 25 for [facility] complaining of increased shortness of breath and cough with yellow and green sputum production. She did not have any fever or chills. She had a chest x-ray that showed cardiomegaly, interstitial densities, correlate for CHF and pulmonary vascular congestion. Some may be chronic. She was also in atrial fibrillation with rapid ventricular response with history of proximal atrial fibrillation. She was started on IV Lasix and admitted to the selective care unit. Her last echocardiogram showed a normal EF. She has been seen in consultation by cardiology and is now on oral Lasix. She has also been started on eliquis. Patient is also followed by pulmonary medicine for acute exacerbation of COPD and CHF. She is currently on oral prednisone, Bactrim, Pulmicort, Perforomist and DuoNeb treatments. Patient states that her breathing status is much improved since she has been here and she is anticipating discharge back to [facility]. Blood culture showing no growth at 48 hours. Sputum culture is in progress. Urinalysis was cloudy, leukoesterase small, WBC 7, bacteria occasional. Urine culture is showing 50 200,000 colonies of VRE for which she has been started on daptomycin. Patient denied having any urinary frequency, pain with urination or burning prior to her admission and she continues to deny that at this time. She has not had a Marquez catheter in. She states she does not recall having a urinary tract infection in many many years. She is normally on home O2 at 3 L nasal cannula. Patient remains without urine symptoms. Less short of breath. Objective - Vital Signs Vital signs: Vital Signs Temp 97.1 F L 04/29/16 08:00 Pulse 92 04/29/16 16:22 Resp 19 04/29/16 15:38 BP 137/67 04/29/16 15:38 Pulse Ox 96 04/29/16 15:38 Intake & Output 04/28/16 04/29/16 04/29/16 18:59 06:59 18:59 Intake Total 336 Output Total 0 2049 0 Balance 336 -2049 0 Weight 104.5 kg Intake: Oral 336 Output: Urine 0 2049 0 Other: Voiding Method Toilet # Voids 2 - Exam Gen: This is a 75-year-old morbidly obese female. She is sitting up in a chair at the bedside and appears to be in no acute distress. HEENT: Head is atraumatic, normocephalic. Pupils equal, round. Sclerae is anicteric. Oral mucous membranes are moist. No thrush noted. NECK: Supple. No JVD. No lymphadenopathy. No thyromegaly. LUNGS: Diminished with crackles bilaterally. No wheezes. No intercostal retractions. HEART: Irregular rate and rhythm. No murmur. ABDOMEN: Morbidly obese. Soft. Bowel sounds are present. No masses. No tenderness. EXTREMITIES: Legs are in a dependent position and move to foot rest. 1+ bilateral pedal edema. Patient has a small wound to the right second toe. NEUROLOGICAL: Patient is awake, alert and oriented x3. - Labs CBC & Chem 7: 04/28/16 05:38 04/28/16 05:38 Labs: Abnormal Lab Results - Last 24 Hours (Table) 04/28/16 Range/Units 17:06 POC Glucose (mg/dL) 218 H (75-99) mg/dL Microbiology - Last 24 Hours (Table) 04/26/16 20:45 Gram Stain - Final Sputum Sputum Culture - Final Laboratory Results WBC 9.0 k/uL (3.8-10.6) 04/28/16 05:38 RBC 4.40 m/uL (3.80-5.40) 04/28/16 05:38 Hgb 11.9 gm/dL (11.4-16.0) 04/28/16 05:38 Hct 40.8 % (34.0-46.0) 04/28/16 05:38 MCV 92.7 fL (80.0-100.0) 04/28/16 05:38 MCH 27.0 pg (25.0-35.0) 04/28/16 05:38 MCHC 29.1 g/dL (31.0-37.0) L 04/28/16 05:38 RDW 15.6 % (11.5-15.5) H 04/28/16 05:38 Plt Count 179 k/uL (150-450) 04/28/16 05:38 Neutrophils % 93 % 04/28/16 05:38 Lymphocytes % 2 % 04/28/16 05:38 Monocytes % 3 % 04/28/16 05:38 Eosinophils % 0 % 04/28/16 05:38 Basophils % 1 % 04/28/16 05:38 Neutrophils # 8.4 k/uL (1.3-7.7) H 04/28/16 05:38 Lymphocytes # 0.2 k/uL (1.0-4.8) L 04/28/16 05:38 Monocytes # 0.3 k/uL (0-1.0) 04/28/16 05:38 Eosinophils # 0.0 k/uL (0-0.7) 04/28/16 05:38 Basophils # 0.1 k/uL (0-0.2) 04/28/16 05:38 Hypochromasia Marked 04/28/16 05:38 PT 10.2 sec (9.0-12.0) 04/25/16 10:25 INR 1.0 (<1.1) 04/25/16 10:25 APTT 21.3 sec (22.0-30.0) L 04/25/16 10:25 Sodium 141 mmol/L (137-145) 04/28/16 05:38 Potassium 3.9 mmol/L (3.5-5.1) 04/28/16 05:38 Chloride 82 mmol/L (98-107) L 04/28/16 05:38 Carbon Dioxide 48 mmol/L (22-30) H* 04/28/16 05:38 Anion Gap 11 mmol/L 04/28/16 05:38 BUN 50 mg/dL (7-17) H 04/28/16 05:38 Creatinine 1.80 mg/dL (0.52-1.04) H 04/28/16 05:38 Est GFR (MDRD) Af Amer 33 (>60 ml/min/1.73 sqM) 04/28/16 05:38 Est GFR (MDRD) Non-Af 28 (>60 ml/min/1.73 sqM) 04/28/16 05:38 Glucose 180 mg/dL (74-99) H 04/28/16 05:38 POC Glucose (mg/dL) 218 mg/dL (75-99) H 04/28/16 17:06 POC Glu Tunneling Machine Operator ROJELIO Sherin Chauhan 04/28/16 17:[address] Glu mg/dL 131 mg/dL 04/26/16 06:11 Hemoglobin A1c 6.2 % (4.2-6.1) H 04/26/16 06:11 Plasma Lactic Acid Francisco Javier 1.9 mmol/L (0.7-2.0) 04/25/16 10:25 Calcium 8.9 mg/dL (8.4-10.2) 04/28/16 05:38 Magnesium 2.1 mg/dL (1.6-2.3) 04/25/16 10:25 Total Bilirubin 0.7 mg/dL (0.2-1.3) 04/25/16 10:25 AST 22 U/L (14-36) 04/25/16 10:25 ALT 27 U/L (9-52) 04/25/16 10:25 Alkaline Phosphatase 78 U/L (38-126) 04/25/16 10:25 Total Creatine Kinase <20 U/L (30-135) L 04/25/16 10:25 CK-MB (CK-2) 0.4 ng/mL (0.0-2.4) 04/25/16 10:25 CK-MB (CK-2) Rel Index 0.0 04/25/16 10:25 Troponin I 0.039 ng/mL (0.000-0.034) H* 04/26/16 01:07 NT-Pro-B Natriuret Pep 6710 pg/mL 04/25/16 10:25 Total Protein 7.0 g/dL (6.3-8.2) 04/25/16 10:25 Albumin 3.5 g/dL (3.5-5.0) 04/25/16 10:25 TSH 0.383 mIU/L (0.465-4.680) L 04/28/16 05:38 Free T4 1.28 ng/dL (0.78-2.19) 04/28/16 05:38 Urine Color Yellow 04/25/16 11:41 Urine Appearance Cloudy (Clear) H 04/25/16 11:41 Urine pH 6.5 (5.0-8.0) 04/25/16 11:41 Ur Specific Crooks 1.005 (1.001-1.035) 04/25/16 11:41 Urine Protein 1+ (Negative) H 04/25/16 11:41 Urine Glucose (UA) Negative (Negative) 04/25/16 11:41 Urine Ketones Negative (Negative) 04/25/16 11:41 Urine Blood Trace (Negative) H 04/25/16 11:41 Urine Nitrate Negative (Negative) 04/25/16 11:41 Urine Bilirubin Negative (Negative) 04/25/16 11:41 Urine Urobilinogen <2.0 mg/dL (<2.0) 04/25/16 11:41 Ur Leukocyte Esterase Small (Negative) H 04/25/16 11:41 Urine RBC 6 /hpf (0-5) H 04/25/16 11:41 Urine WBC 7 /hpf (0-5) H 04/25/16 11:41 Ur Squamous Epith Cells 4 /hpf (0-4) 04/25/16 11:41 Urine Bacteria Occasional /hpf (None) H 04/25/16 11:41 Urine Mucus Rare /hpf (None) H 04/25/16 11:41 Microbiology 04/25/16 10:25 Blood Blood Culture - Preliminary No Growth after 96 hours 04/26/16 20:45 Sputum Gram Stain - Final 04/26/16 20:45 Sputum Sputum Culture - Final 04/25/16 11:41 Urine,Voided Urine Culture - Final Enterococcus faecium VRE Assessment and Plan (1) VRE (vancomycin resistant enterococcus) culture positive Narrative/Plan: 75-year-old woman who has underlying multiple medical troubles which includes COPD congestive heart failure diastolic type and chronic hypercapnic respiratory failure who is on chronic oxygen therapy presents to Hospital with significant shortness of breath. His evidence of acute kidney injury. Urinalysis was somewhat benign culture had evidence of vancomycin-resistant enterococci. Patient is evidence of no urinary symptoms. Daptomycin was discontinued. She will monitor for any urinary symptoms. VRE colonization does not require intervention unless the patient is symptomatic. For tracheobronchitis she is receiving trimethoprim sulfamethoxazole and steroids and has had an improvement. Status: Acute
[2016-04-29] MEDS: FAMOTIDINE 20 MG TAB PO SCH (20:34)
--- NOTE | 2016-04-29 20:45 | PN ---
DATE OF SERVICE: 04/29/2016 PRESENTING COMPLAINT: Short of breath, cough. INTERVAL HISTORY: This is a patient admitted with CHF exacerbation, atrial fibrillation, COPD exacerbation, being much improved, except heart rate is racing. This morning cardiology switched the patient from Cardizem CD to verapamil twice a day. Otherwise, breathing is much better, minimal cough. Dr. Daniels saw the patient. He thinks there is a VRE colonization, since there were no urinary symptoms; hence, antibiotics for that appropriately have been discontinued. Review of systems done for constitutional, cardiovascular, GI, pulmonary; relevant findings as above. Current medications are reviewed that include Eliquis, aspirin, p.o. Lasix, oral prednisone, Bactrim DS, Isoptin SR. On examination, afebrile, pulse 138, respirations 19, blood pressure 137/67, pulse ox 96% on 3 liters. GENERAL APPEARANCE: Sitting up in a chair more comfortable. EYES: Pupils equal. Conjunctivae normal. NECK: JVD not raised. Mass not palpable. RESPIRATORY: Effort increased. LUNGS: Improved air entry. Decreased wheezing, crackles have cleared up. CARDIOVASCULAR: Heart sounds irregular. No edema. ABDOMEN: Soft, nontender. Liver and spleen not palpable. PSYCHIATRY: Alert and oriented x3. Mood and affect normal. INVESTIGATIONS: No blood work from today. Accu-Cheks are noted. ASSESSMENT: 1. Acute congestive heart failure exacerbation. On recent echocardiogram, ejection fraction could not be determined. Clinically now stabilized. 2. Persistent atrial fibrillation with heart rates still uncontrolled. Cardiology switched the patient to verapamil today. Cardizem was stopped. 3. Acute chronic obstructive pulmonary disease exacerbation in an ex-smoker, improved. 4. Acute hypercapnic respiratory failure, present on admission. 5. Chronic hypoxic respiratory failure on 3-L oxygen at home. 6. Morbid obesity body mass index of 40.8. 7. Essential hypertension. 8. Primary osteoarthritis of multiple joints. 9. Seizure disorder. 10. Medical debility, patient is rather tired, but overall much improved. 11. Pneumonia, suspect gram-negative organism especially in the right lower lobe, present on admission, with clinical improvement. 12. Vancomycin-resistant enterococcus colonization. No need for antibiotics for the same. PLAN: Continue current medication and treatment plan. Daptomycin was discontinued. Will discontinue the patient's aspirin. Probably causing the patient's bruising. Continue other medication and treatment plan. Follow. Given patient's troponin leak, will maintain a small dose of aspirin and add GI protection.
[2016-04-29] MEDS ORDERED: DAPTOmycin 500 MG in SODIUM CHLORIDE 0.9% 50 ML IV SCH (21:00)
[2016-04-30] MEDS: IPRATROPIUM-ALBUTEROL 3 ML NEB INHALATION SCH ×4 (08:11→20:01)
[2016-04-30] MEDS: BUDESONIDE 1 MG/2 ML NEBU INHALATION SCH ×2 (08:11→20:01)
[2016-04-30] MEDS: FORMOTEROL FUMARATE 20 MCG/2 ML NEBU INHALATION SCH ×2 (08:11→20:01)
[2016-04-30] MEDS: predniSONE 20 MG TAB PO SCH (08:21)
[2016-04-30] MEDS: APIXABAN 2.5 MG TABLET PO SCH ×2 (08:21→22:05)
[2016-04-30] MEDS: POTASSIUM CHLORIDE ER 10 MEQ TAB.ER.PRT PO SCH (08:21)
[2016-04-30] MEDS: FUROSEMIDE 40 MG TAB PO SCH ×2 (08:21→15:44)
[2016-04-30] MEDS: FAMOTIDINE 20 MG TAB PO SCH (08:21)
[2016-04-30] MEDS: VERAPAMIL SR 240 MG TABLET.ER PO SCH ×2 (08:21→22:06)
[2016-04-30] MEDS: ASPIRIN 81 MG CHEW PO SCH (08:22)
[2016-04-30] MEDS: SULFAMETHOX-TMP 400-80MG 1 EACH TAB PO SCH ×2 (10:05→22:07)
[2016-04-30] MEDS: SODIUM CHLORIDE 0.9% 1,000 ML IV SCH (15:15)
--- NOTE | 2016-04-30 15:42 | P.PN ---
Subjective Principal diagnosis: VRE and urine This is a 75-year-old female. She presented to [facility] on April 25 for [facility] complaining of increased shortness of breath and cough with yellow and green sputum production. She did not have any fever or chills. She had a chest x-ray that showed cardiomegaly, interstitial densities, correlate for CHF and pulmonary vascular congestion. Some may be chronic. She was also in atrial fibrillation with rapid ventricular response with history of proximal atrial fibrillation. She was started on IV Lasix and admitted to the selective care unit. Her last echocardiogram showed a normal EF. She has been seen in consultation by cardiology and is now on oral Lasix. She has also been started on eliquis. Patient is also followed by pulmonary medicine for acute exacerbation of COPD and CHF. She is currently on oral prednisone, Bactrim, Pulmicort, Perforomist and DuoNeb treatments. Patient states that her breathing status is much improved since she has been here and she is anticipating discharge back to [facility]. Blood culture showing no growth at 48 hours. Sputum culture is in progress. Urinalysis was cloudy, leukoesterase small, WBC 7, bacteria occasional. Urine culture is showing 50 100,000 colonies of VRE Patient denied having any urinary frequency, pain with urination or burning prior to her admission and she continues to deny that at this time. She has not had a Marquez catheter in. She states she does not recall having a urinary tract infection in many many years. She is normally on home O2 at 3 L nasal cannula. Patient remains without urine symptoms. Less short of breath. Objective - Vital Signs Vital signs: Vital Signs Temp 97.1 F L 04/30/16 04:00 Pulse 125 H 04/30/16 12:00 Resp 19 04/30/16 12:00 BP 137/62 04/30/16 12:00 Pulse Ox 92 L 04/30/16 12:00 Intake & Output 04/29/16 04/30/16 04/30/16 18:59 06:59 18:59 Intake Total 180 Output Total 0 400 0 Balance 0 -400 180 Weight 102.6 kg Intake: Oral 180 Output: Urine 0 400 0 Other: Voiding Method Toilet # Voids 1 # Bowel Movements 1 - Exam Gen: This is a 75-year-old morbidly obese female. She is sitting up in a chair at the bedside and appears to be in no acute distress. HEENT: Head is atraumatic, normocephalic. Pupils equal, round. Sclerae is anicteric. Oral mucous membranes are moist. No thrush noted. NECK: Supple. No JVD. No lymphadenopathy. No thyromegaly. LUNGS: Diminished with crackles bilaterally. No wheezes. No intercostal retractions. HEART: Irregular rate and rhythm. No murmur. ABDOMEN: Morbidly obese. Soft. Bowel sounds are present. No masses. No tenderness. EXTREMITIES: Legs are in a dependent position and move to foot rest. 1+ bilateral pedal edema. Patient has a small wound to the right second toe. NEUROLOGICAL: Patient is awake, alert and oriented x3. - Labs CBC & Chem 7: 04/28/16 05:38 04/28/16 05:38 Labs: Laboratory Results WBC 9.0 k/uL (3.8-10.6) 04/28/16 05:38 RBC 4.40 m/uL (3.80-5.40) 04/28/16 05:38 Hgb 11.9 gm/dL (11.4-16.0) 04/28/16 05:38 Hct 40.8 % (34.0-46.0) 04/28/16 05:38 MCV 92.7 fL (80.0-100.0) 04/28/16 05:38 MCH 27.0 pg (25.0-35.0) 04/28/16 05:38 MCHC 29.1 g/dL (31.0-37.0) L 04/28/16 05:38 RDW 15.6 % (11.5-15.5) H 04/28/16 05:38 Plt Count 179 k/uL (150-450) 04/28/16 05:38 Neutrophils % 93 % 04/28/16 05:38 Lymphocytes % 2 % 04/28/16 05:38 Monocytes % 3 % 04/28/16 05:38 Eosinophils % 0 % 04/28/16 05:38 Basophils % 1 % 04/28/16 05:38 Neutrophils # 8.4 k/uL (1.3-7.7) H 04/28/16 05:38 Lymphocytes # 0.2 k/uL (1.0-4.8) L 04/28/16 05:38 Monocytes # 0.3 k/uL (0-1.0) 04/28/16 05:38 Eosinophils # 0.0 k/uL (0-0.7) 04/28/16 05:38 Basophils # 0.1 k/uL (0-0.2) 04/28/16 05:38 Hypochromasia Marked 04/28/16 05:38 PT 10.2 sec (9.0-12.0) 04/25/16 10:25 INR 1.0 (<1.1) 04/25/16 10:25 APTT 21.3 sec (22.0-30.0) L 04/25/16 10:25 Sodium 141 mmol/L (137-145) 04/28/16 05:38 Potassium 3.9 mmol/L (3.5-5.1) 04/28/16 05:38 Chloride 82 mmol/L (98-107) L 04/28/16 05:38 Carbon Dioxide 48 mmol/L (22-30) H* 04/28/16 05:38 Anion Gap 11 mmol/L 04/28/16 05:38 BUN 50 mg/dL (7-17) H 04/28/16 05:38 Creatinine 1.80 mg/dL (0.52-1.04) H 04/28/16 05:38 Est GFR (MDRD) Af Amer 33 (>60 ml/min/1.73 sqM) 04/28/16 05:38 Est GFR (MDRD) Non-Af 28 (>60 ml/min/1.73 sqM) 04/28/16 05:38 Glucose 180 mg/dL (74-99) H 04/28/16 05:38 POC Glucose (mg/dL) 218 mg/dL (75-99) H 04/28/16 17:06 POC Glu Motor Builder Assembler ROJELIO Sherin Chauhan 04/28/16 17:[address] Glu mg/dL 131 mg/dL 04/26/16 06:11 Hemoglobin A1c 6.2 % (4.2-6.1) H 04/26/16 06:11 Plasma Lactic Acid Francisco Javier 1.9 mmol/L (0.7-2.0) 04/25/16 10:25 Calcium 8.9 mg/dL (8.4-10.2) 04/28/16 05:38 Magnesium 2.1 mg/dL (1.6-2.3) 04/25/16 10:25 Total Bilirubin 0.7 mg/dL (0.2-1.3) 04/25/16 10:25 AST 22 U/L (14-36) 04/25/16 10:25 ALT 27 U/L (9-52) 04/25/16 10:25 Alkaline Phosphatase 78 U/L (38-126) 04/25/16 10:25 Total Creatine Kinase <20 U/L (30-135) L 04/25/16 10:25 CK-MB (CK-2) 0.4 ng/mL (0.0-2.4) 04/25/16 10:25 CK-MB (CK-2) Rel Index 0.0 04/25/16 10:25 Troponin I 0.039 ng/mL (0.000-0.034) H* 04/26/16 01:07 NT-Pro-B Natriuret Pep 6710 pg/mL 04/25/16 10:25 Total Protein 7.0 g/dL (6.3-8.2) 04/25/16 10:25 Albumin 3.5 g/dL (3.5-5.0) 04/25/16 10:25 TSH 0.383 mIU/L (0.465-4.680) L 04/28/16 05:38 Free T4 1.28 ng/dL (0.78-2.19) 04/28/16 05:38 Urine Color Yellow 04/25/16 11:41 Urine Appearance Cloudy (Clear) H 04/25/16 11:41 Urine pH 6.5 (5.0-8.0) 04/25/16 11:41 Ur Specific [place] 1.005 (1.001-1.035) 04/25/16 11:41 Urine Protein 1+ (Negative) H 04/25/16 11:41 Urine Glucose (UA) Negative (Negative) 04/25/16 11:41 Urine Ketones Negative (Negative) 04/25/16 11:41 Urine Blood Trace (Negative) H 04/25/16 11:41 Urine Nitrate Negative (Negative) 04/25/16 11:41 Urine Bilirubin Negative (Negative) 04/25/16 11:41 Urine Urobilinogen <2.0 mg/dL (<2.0) 04/25/16 11:41 Ur Leukocyte Esterase Small (Negative) H 04/25/16 11:41 Urine RBC 6 /hpf (0-5) H 04/25/16 11:41 Urine WBC 7 /hpf (0-5) H 04/25/16 11:41 Ur Squamous Epith Cells 4 /hpf (0-4) 04/25/16 11:41 Urine Bacteria Occasional /hpf (None) H 04/25/16 11:41 Urine Mucus Rare /hpf (None) H 04/25/16 11:41 Microbiology 04/25/16 10:25 Blood Blood Culture - Preliminary No Growth after 120 hours 04/26/16 20:45 Sputum Gram Stain - Final 04/26/16 20:45 Sputum Sputum Culture - Final 04/25/16 11:41 Urine,Voided Urine Culture - Final Enterococcus faecium VRE Assessment and Plan (1) VRE (vancomycin resistant enterococcus) culture positive Narrative/Plan: 75-year-old woman who has underlying multiple medical troubles which includes COPD congestive heart failure diastolic type and chronic hypercapnic respiratory failure who is on chronic oxygen therapy presents to Hospital with significant shortness of breath. His evidence of acute kidney injury. Urinalysis was somewhat benign culture had evidence of vancomycin-resistant enterococci. Patient is evidence of no urinary symptoms. Daptomycin was discontinued. She will monitor for any urinary symptoms. VRE colonization does not require intervention unless the patient is symptomatic. For tracheobronchitis she is receiving trimethoprim sulfamethoxazole and steroids and has had an improvement. The 7 day course of therapy should be completed. Status: Acute
[2016-04-30 21:19] LABS: Glucose,Whole Blood 202 mg/dL (75-99)
[2016-05-01 05:58] VITALS: RESP 18
[2016-05-01] MEDS: BUDESONIDE 1 MG/2 ML NEBU INHALATION SCH (07:49)
[2016-05-01] MEDS: FORMOTEROL FUMARATE 20 MCG/2 ML NEBU INHALATION SCH (07:49)
[2016-05-01] MEDS: IPRATROPIUM-ALBUTEROL 3 ML NEB INHALATION SCH ×3 (07:49→15:23)
[2016-05-01] MEDS: VERAPAMIL SR 240 MG TABLET.ER PO SCH (08:33)
[2016-05-01] MEDS: APIXABAN 2.5 MG TABLET PO SCH (08:33)
[2016-05-01] MEDS: SULFAMETHOX-TMP 400-80MG 1 EACH TAB PO SCH (08:33)
[2016-05-01] MEDS: predniSONE 20 MG TAB PO SCH (08:34)
[2016-05-01] MEDS: ASPIRIN 81 MG CHEW PO SCH (08:34)
[2016-05-01] MEDS: POTASSIUM CHLORIDE ER 10 MEQ TAB.ER.PRT PO SCH (08:34)
[2016-05-01] MEDS: FUROSEMIDE 40 MG TAB PO SCH ×2 (08:34→14:57)
[2016-05-01] MEDS ORDERED: FAMOTIDINE 20 MG TAB PO SCH (09:00)
--- NOTE | 2016-05-01 11:39 | PN ---
DATE OF SERVICE: 04/30/2016 PRESENTING COMPLAINT: Short of breath, cough, INTERVAL HISTORY: This patient presented with CHF exacerbation, atrial fibrillation, COPD exacerbation. Urine is felt to be colonized with VRE, heart rate was up to 130s this morning, but now today ( ) has been up to 80 to 90's. Overall breathing is better. Review of systems done for constitutional, cardiovascular, GI, pulmonary; relevant finding as above. Current medications are reviewed. On examination, afebrile, pulse 98, respiration 18, blood pressure 120/70, pulse ox 95% on 3 L. GENERAL APPEARANCE: Sitting up, comfortable. EYES: Pupils equal. Conjunctivae normal. NECK: JVD not raised. Mass not palpable. Respiratory effort increased. LUNGS: Improved air entry. Decreased wheezing. CARDIOVASCULAR: Heart sounds irregular. No edema. ABDOMEN: Soft, nontender. Liver and spleen not palpable. PSYCHIATRY: Alert and oriented x3. Mood and affect is normal. INVESTIGATIONS: Accu-Cheks are noted. ASSESSMENT: 1. Acute congestive heart failure exacerbation, ejection fraction is not known. Clinically improved. 2. Persistent atrial fibrillation. Heart rate somewhat better controlled this evening, continue on verapamil. 3. Acute chronic obstructive pulmonary disease exacerbation in an ex-smoker, improved. 4. Acute hypercapnic respiratory failure, present on admission. 5. Chronic hypoxic respiratory failure, on 3 L of oxygen at home. 6. Moderate obesity, body mass index of 40.8. 7. Essential hypertension. 8. Primary osteoarthritis of multiple joints. 9. Seizure disorder. 10. Medical debility, 11. Pneumonia, suspect gram-negative organism especially in the right lower lobe, present on admission with clinical improvement. 12. Vancomycin-resistant enterococcus colonization. PLAN: Overall doing much better, looking at discharge tomorrow. Care was discussed with the patient.
--- NOTE | 2016-05-01 14:22 | DS ---
DATE OF ADMISSION: 04/25/2016 DATE OF DISCHARGE: FINAL DIAGNOSES: 1. Acute on chronic congestive heart failure from diastolic dysfunction; ejection fraction at 50 to 55% in December last year. 2. Persistent atrial fibrillation. Heart rate now controlled. 3. Acute chronic obstructive pulmonary disease exacerbation in an ex-smoker, present at admission. 4. Acute hypercapnic respiratory failure present on admission. 5. Chronic hypoxic respiratory failure on 3 L oxygen at home. 6. Moderate obesity body mass index of 40.8. 7. Essential hypertension. 8. Primary osteoarthritis of multiple joints. 9. Seizure disorder. 10. Medical debility, 11. Pneumonia, suspect gram-negative organism especially in the right lower lobe, present on admission. 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 13. Possibly chronic kidney disease from nephrosclerosis. CONSULTATIONS: Dr. Hairston from cardiology. Dr. Daniels infectious disease. Dr. Taylor from pulmonary. HOSPITAL COURSE: This patient presented with the above, including COPD exacerbation, CHF exacerbation, A. fib was also present with uncontrolled. Cardizem was switched over to verapamil. Eliquis was placed. Patient is doing much better at the time of discharge. On examination, lungs improved air entry. CARDIOVASCULAR: Heart sounds irregular. PSYCH: Alert and oriented x3. DISCHARGE MEDICATIONS: 1. CoQ10 100 mg p.o. t.i.d. 2. Tylenol 325 p.o. q.6 p.r.n. 3. Dulcolax 10 mg rectal daily p.r.n. 4. Pulmicort 0.25 mg b.i.d. 5. Duoneb q.4 p.r.n. 6. Milk of magnesia 2400 p.o. daily p.r.n. 7. Fleets adult 133 mL rectal daily p.r.n. 8. Vitamin A and D topical daily. 9. Desitin topical daily p.r.n. 10. Eliquis 2.5 p.o. b.i.d. 11. Aspirin 81 mg p.o. daily. 12. Pepcid 20 mg p.o. daily. 13. Lasix 40 mg p.o. daily. 14. DuoNeb q.i.d. 15. Potassium 10 meq daily. 16. Bactrim single strength 1 tab b.i.d. four tablets. 17. Isoptin SR 240 mg b.i.d. 18. Prednisone taper. DISPOSITION: [facility]. Follow up with Dr. Padron. LABS: CBC, BMP in 3 days. Oxygen 2 liters. Discharge planning more than 35 minutes. Also follow up with cardiology in ten days.
[2016-05-01] MEDS: SODIUM CHLORIDE 0.9% 1,000 ML IV SCH (14:56)
--- NOTE | 2016-05-01 15:31 | P.PN ---
Subjective This is a pleasant 75-year-old female with history of severe COPD and home O2 use, nicotine dependence, hypertension, she was most recently seen here in the hospital earlier this month, echo performed in December revealed normal left ventricular systolic function. Patient also has history of paroxysmal atrial fibrillation. She again presents to the hospital with symptoms of progressively worsening shortness of breath. EKG on admission showed atrial fibrillation with a moderately rapid ventricular response. Patient was seen and examined this morning, feeling much better overall. Heart rate in the 90s. Arrangements are being made for transfer to rehab today. Objective - Vital Signs Vital signs: Vital Signs Temp 97.2 F L 05/01/16 04:00 Pulse 96 05/01/16 15:25 Resp 18 05/01/16 14:50 BP 127/62 05/01/16 11:47 Pulse Ox 95 05/01/16 11:47 Intake & Output 04/30/16 05/01/16 05/01/16 18:59 06:59 18:59 Intake Total 590 300 780 Output Total 800 500 250 Balance -210 -200 530 Weight 103.9 kg Intake: Intake, IV Titration 0 Amount Sodium Chloride 0.9% 1, 0 000 ml @ 20 mls/hr IV . Q24H [facility] Rx#:[id number] Oral 590 300 780 Output: Urine 800 500 250 Other: Voiding Method Toilet # Voids 1 # Bowel Movements 1 - Exam PHYSICAL EXAMINATION: HEENT: Head is atraumatic, normocephalic. Pupils equal, round. Neck is supple. There is no elevated jugular venous pressure. HEART EXAMINATION: Heart S1 and S2 irregular irregular systolic murmur is heard. CHEST EXAMINATION: Lungs reveal coarse wheezing throughout. ABDOMEN: Soft, nontender. Bowel sounds are heard. No organomegaly noted. EXTREMITIES: 2+ peripheral pulses with 1+ evidence of peripheral edema and no calf tenderness noted. NEUROLOGIC patient is awake, alert and oriented -3. . - Labs CBC & Chem 7: 04/28/16 05:38 04/28/16 05:38 Labs: Abnormal Lab Results - Last 24 Hours (Table) 04/30/16 Range/Units 21:18 POC Glucose (mg/dL) 202 H (75-99) mg/dL Assessment and Plan Plan: Assessment and plan #1 symptoms of progressive shortness of breath, combination of diastolic congestive heart failure acute on chronic, and exacerbation of COPD. Most recent echocardiogram with Doppler study performed in December revealed a normal left ventricular systolic function. #2 A. fib with moderately rapid ventricular response, patient has history of paroxysmal atrial fibrillation not currently on anticoagulation. #3 remote history of smoking #4 severe COPD on home O2 #5 hypertension # 6 hypokalemia, replaced #7 acute on chronic renal insufficiency #8 abnormal troponins, not consistent with acute coronary syndrome, likely secondary to oxygen supply and demand mismatch. Plan From cardiology's perspective, we'll continue the patient on her current medications. She may be able to be transferred to rehab. A follow-up appointment will be made in the office post discharge. DNP note has been reviewed, I agree with a documented findings and plan of care. Patient was seen and examined.
[2016-05-01 15:36] VITALS: BP 122/73; PULSE 87; TEMP 97.5
--- NOTE | 2016-05-01 19:10 | P.PN ---
Subjective Principal diagnosis: VRE and urine This is a 75-year-old female. She presented to [facility] on April 25 for [facility] complaining of increased shortness of breath and cough with yellow and green sputum production. She did not have any fever or chills. She had a chest x-ray that showed cardiomegaly, interstitial densities, correlate for CHF and pulmonary vascular congestion. Some may be chronic. She was also in atrial fibrillation with rapid ventricular response with history of proximal atrial fibrillation. She was started on IV Lasix and admitted to the selective care unit. Her last echocardiogram showed a normal EF. She has been seen in consultation by cardiology and is now on oral Lasix. She has also been started on eliquis. Patient is also followed by pulmonary medicine for acute exacerbation of COPD and CHF. She is currently on oral prednisone, Bactrim, Pulmicort, Perforomist and DuoNeb treatments. Patient states that her breathing status is much improved since she has been here and she is anticipating discharge back to [facility]. Blood culture showing no growth at 48 hours. Sputum culture is in progress. Urinalysis was cloudy, leukoesterase small, WBC 7, bacteria occasional. Urine culture is showing 50 100,000 colonies of VRE Patient denied having any urinary frequency, pain with urination or burning prior to her admission and she continues to deny that at this time. She has not had a Marquez catheter in. She states she does not recall having a urinary tract infection in many many years. She is normally on home O2 at 3 L nasal cannula. Patient remains without urine symptoms. Less short of breath. Objective - Vital Signs Vital signs: Vital Signs Temp 97.5 F L 05/01/16 15:36 Pulse 87 05/01/16 15:36 Resp 18 05/01/16 15:36 BP 122/73 05/01/16 15:36 Pulse Ox 94 L 05/01/16 15:36 Intake & Output 05/01/16 05/01/16 05/02/16 06:59 18:59 06:59 Intake Total 300 780 Output Total 500 250 Balance -200 530 Weight 103.9 kg Intake: Intake, IV Titration 0 Amount Sodium Chloride 0.9% 1, 0 000 ml @ 20 mls/hr IV . Q24H [facility] Rx#:[id number] Oral 300 780 Output: Urine 500 250 Other: Voiding Method Toilet # Voids 1 # Bowel Movements 1 - Exam Gen: This is a 75-year-old morbidly obese female. She is sitting up in a chair at the bedside and appears to be in no acute distress. HEENT: Head is atraumatic, normocephalic. Pupils equal, round. Sclerae is anicteric. Oral mucous membranes are moist. No thrush noted. NECK: Supple. No JVD. No lymphadenopathy. No thyromegaly. LUNGS: Diminished with crackles bilaterally. No wheezes. No intercostal retractions. HEART: Irregular rate and rhythm. No murmur. ABDOMEN: Morbidly obese. Soft. Bowel sounds are present. No masses. No tenderness. EXTREMITIES: Legs are in a dependent position and move to foot rest. 1+ bilateral pedal edema. Patient has a small wound to the right second toe. NEUROLOGICAL: Patient is awake, alert and oriented x3. - Labs CBC & Chem 7: 04/28/16 05:38 04/28/16 05:38 Labs: Abnormal Lab Results - Last 24 Hours (Table) 04/30/16 Range/Units 21:18 POC Glucose (mg/dL) 202 H (75-99) mg/dL Laboratory Results WBC 9.0 k/uL (3.8-10.6) 04/28/16 05:38 RBC 4.40 m/uL (3.80-5.40) 04/28/16 05:38 Hgb 11.9 gm/dL (11.4-16.0) 04/28/16 05:38 Hct 40.8 % (34.0-46.0) 04/28/16 05:38 MCV 92.7 fL (80.0-100.0) 04/28/16 05:38 MCH 27.0 pg (25.0-35.0) 04/28/16 05:38 MCHC 29.1 g/dL (31.0-37.0) L 04/28/16 05:38 RDW 15.6 % (11.5-15.5) H 04/28/16 05:38 Plt Count 179 k/uL (150-450) 04/28/16 05:38 Neutrophils % 93 % 04/28/16 05:38 Lymphocytes % 2 % 04/28/16 05:38 Monocytes % 3 % 04/28/16 05:38 Eosinophils % 0 % 04/28/16 05:38 Basophils % 1 % 04/28/16 05:38 Neutrophils # 8.4 k/uL (1.3-7.7) H 04/28/16 05:38 Lymphocytes # 0.2 k/uL (1.0-4.8) L 04/28/16 05:38 Monocytes # 0.3 k/uL (0-1.0) 04/28/16 05:38 Eosinophils # 0.0 k/uL (0-0.7) 04/28/16 05:38 Basophils # 0.1 k/uL (0-0.2) 04/28/16 05:38 Hypochromasia Marked 04/28/16 05:38 PT 10.2 sec (9.0-12.0) 04/25/16 10:25 INR 1.0 (<1.1) 04/25/16 10:25 APTT 21.3 sec (22.0-30.0) L 04/25/16 10:25 Sodium 141 mmol/L (137-145) 04/28/16 05:38 Potassium 3.9 mmol/L (3.5-5.1) 04/28/16 05:38 Chloride 82 mmol/L (98-107) L 04/28/16 05:38 Carbon Dioxide 48 mmol/L (22-30) H* 04/28/16 05:38 Anion Gap 11 mmol/L 04/28/16 05:38 BUN 50 mg/dL (7-17) H 04/28/16 05:38 Creatinine 1.80 mg/dL (0.52-1.04) H 04/28/16 05:38 Est GFR (MDRD) Af Amer 33 (>60 ml/min/1.73 sqM) 04/28/16 05:38 Est GFR (MDRD) Non-Af 28 (>60 ml/min/1.73 sqM) 04/28/16 05:38 Glucose 180 mg/dL (74-99) H 04/28/16 05:38 POC Glucose (mg/dL) 202 mg/dL (75-99) H 04/30/16 21:18 POC Glu Robotic Welding Operator ROJELIO Felix Harris 04/30/16 21:[address] Glu mg/dL 131 mg/dL 04/26/16 06:11 Hemoglobin A1c 6.2 % (4.2-6.1) H 04/26/16 06:11 Plasma Lactic Acid Francisco Javier 1.9 mmol/L (0.7-2.0) 04/25/16 10:25 Calcium 8.9 mg/dL (8.4-10.2) 04/28/16 05:38 Magnesium 2.1 mg/dL (1.6-2.3) 04/25/16 10:25 Total Bilirubin 0.7 mg/dL (0.2-1.3) 04/25/16 10:25 AST 22 U/L (14-36) 04/25/16 10:25 ALT 27 U/L (9-52) 04/25/16 10:25 Alkaline Phosphatase 78 U/L (38-126) 04/25/16 10:25 Total Creatine Kinase <20 U/L (30-135) L 04/25/16 10:25 CK-MB (CK-2) 0.4 ng/mL (0.0-2.4) 04/25/16 10:25 CK-MB (CK-2) Rel Index 0.0 04/25/16 10:25 Troponin I 0.039 ng/mL (0.000-0.034) H* 04/26/16 01:07 NT-Pro-B Natriuret Pep 6710 pg/mL 04/25/16 10:25 Total Protein 7.0 g/dL (6.3-8.2) 04/25/16 10:25 Albumin 3.5 g/dL (3.5-5.0) 04/25/16 10:25 TSH 0.383 mIU/L (0.465-4.680) L 04/28/16 05:38 Free T4 1.28 ng/dL (0.78-2.19) 04/28/16 05:38 Urine Color Yellow 04/25/16 11:41 Urine Appearance Cloudy (Clear) H 04/25/16 11:41 Urine pH 6.5 (5.0-8.0) 04/25/16 11:41 Ur Specific [place] 1.005 (1.001-1.035) 04/25/16 11:41 Urine Protein 1+ (Negative) H 04/25/16 11:41 Urine Glucose (UA) Negative (Negative) 04/25/16 11:41 Urine Ketones Negative (Negative) 04/25/16 11:41 Urine Blood Trace (Negative) H 04/25/16 11:41 Urine Nitrate Negative (Negative) 04/25/16 11:41 Urine Bilirubin Negative (Negative) 04/25/16 11:41 Urine Urobilinogen <2.0 mg/dL (<2.0) 04/25/16 11:41 Ur Leukocyte Esterase Small (Negative) H 04/25/16 11:41 Urine RBC 6 /hpf (0-5) H 04/25/16 11:41 Urine WBC 7 /hpf (0-5) H 04/25/16 11:41 Ur Squamous Epith Cells 4 /hpf (0-4) 04/25/16 11:41 Urine Bacteria Occasional /hpf (None) H 04/25/16 11:41 Urine Mucus Rare /hpf (None) H 04/25/16 11:41 Microbiology 04/25/16 10:25 Blood Blood Culture - Final No Growth after 144 hours 04/26/16 20:45 Sputum Gram Stain - Final 04/26/16 20:45 Sputum Sputum Culture - Final 04/25/16 11:41 Urine,Voided Urine Culture - Final Enterococcus faecium VRE Assessment and Plan (1) VRE (vancomycin resistant enterococcus) culture positive Narrative/Plan: 75-year-old woman who has underlying multiple medical troubles which includes COPD congestive heart failure diastolic type and chronic hypercapnic respiratory failure who is on chronic oxygen therapy presents to Hospital with significant shortness of breath. His evidence of acute kidney injury. Urinalysis was somewhat benign culture had evidence of vancomycin-resistant enterococci. Patient is evidence of no urinary symptoms. Daptomycin was discontinued. She will monitor for any urinary symptoms. VRE colonization does not require intervention unless the patient is symptomatic. For tracheobronchitis she is receiving trimethoprim sulfamethoxazole and steroids and has had an improvement. The 7 day course of therapy should be completed. Status: Acute
== END 2016-05-01 16:59 | DRG 291 ==
LOC: EC 10:04 → 6SEL 14:01
PROVIDERS: ADMIT Hospitalist; ATTEND Hospitalist
DX: I13.0 Hypertensive heart and chronic kidney disease with heart failure and stage 1 through stage 4 chronic kidney disease, or unspecified chronic kidney disease (principal); I50.33 Acute on chronic diastolic (congestive) heart failure; J96.22 Acute and chronic respiratory failure with hypercapnia; J15.6 Pneumonia due to other Gram-negative bacteria; N17.9 Acute kidney failure, unspecified; I48.1 Persistent atrial fibrillation; E11.22 Type 2 diabetes mellitus with diabetic chronic kidney disease; J96.11 Chronic respiratory failure with hypoxia; J44.0 Chronic obstructive pulmonary disease with (acute) lower respiratory infection; E11.65 Type 2 diabetes mellitus with hyperglycemia; N39.0 Urinary tract infection, site not specified; J44.1 Chronic obstructive pulmonary disease with (acute) exacerbation; I48.92 Unspecified atrial flutter; J20.9 Acute bronchitis, unspecified; Z99.81 Dependence on supplemental oxygen; E66.01 Morbid (severe) obesity due to excess calories; G40.909 Epilepsy, unspecified, not intractable, without status epilepticus; N18.9 Chronic kidney disease, unspecified; M19.91 Primary osteoarthritis, unspecified site; E87.6 Hypokalemia; Z68.38 Body mass index [BMI] 38.0-38.9, adult; J45.909 Unspecified asthma, uncomplicated; B95.2 Enterococcus as the cause of diseases classified elsewhere; Z71.3 Dietary counseling and surveillance; Z16.21 Resistance to vancomycin; Z98.42 Cataract extraction status, left eye; Z98.41 Cataract extraction status, right eye; Z96.1 Presence of intraocular lens; Z87.891 Personal history of nicotine dependence; Z88.5 Allergy status to narcotic agent; Z88.8 Allergy status to other drugs, medicaments and biological substances; Z91.041 Radiographic dye allergy status; Z91.013 Allergy to seafood; Z79.899 Other long term (current) drug therapy
CPT/HCPCS: 36415; 71020; 80048; 80053; 81001; 82550; 82553; 83036; 83605; 83735; 83880; 84132; 84439; 84443; 84484; 85025; 85610; 85730; 87040; 87070; 87077; 87086; 87186; 87205; 93005; 94640; 94760; 96374; 96375; 99285

== ENCOUNTER 2016-05-11 08:46 | Inpatient (IN) | payer MEDICARE ==
[2016-05-11] MEDS ORDERED: methylPREDNISolone SOD SUCCI 125 MG/2 ML VIAL IV STA (09:22)
[2016-05-11] MEDS ORDERED: ALBUTEROL NEBULIZED 2.5 MG/3 ML INHALATION STA (09:22)
[2016-05-11] MEDS ORDERED: FUROSEMIDE 10 MG/ML 4 ML VIAL IV STA ×2 (09:22→11:05)
[2016-05-11] MEDS ORDERED: IPRATROPIUM 0.5 MG/2.5 ML NEBU INHALATION STA (09:22)
[2016-05-11 09:44] LABS: Anisocytosis Slight; Basophils % (A) 0 %; CH 27.8; CHCM 29.5; Eosinophils # (A) 0.1 k/uL (0-0.7); Eosinophils % (A) 0 %; Hypochromasia Marked; Luc # (Auto) 0.12; Luc % (Auto) 1; Lymphocytes # (A) 0.6 k/uL (1.0-4.8); Lymphocytes % (A) 4 %; MCH 27.7 pg (25.0-35.0); MCHC 29.3 g/dL (31.0-37.0); MCV 94.8 fL (80.0-100.0); Mean Platelet Volume 7.9; Monocytes # (A) 0.7 k/uL (0-1.0); Monocytes % (A) 5 %; Neutrophils % (A) 89 %; RBC 4.32 m/uL (3.80-5.40); RDW 17.1 % (11.5-15.5); WBC 13.5 k/uL (3.8-10.6); WBC (Perox) 13.71
[2016-05-11 09:57] LABS: INR 1.1 (<1.1); Partial Thromboplastin Time 22.5 sec (22.0-30.0)
--- NOTE | 2016-05-11 09:58 | XR ---
EXAMINATION TYPE: XR chest 2V DATE OF EXAM: 05/11/2016 9:50 AM COMPARISON: 04/27/2016 INDICATION: Difficulty breathing, COPD TECHNIQUE: Frontal and lateral views of the chest are obtained. FINDINGS: The heart size is enlarged. The pulmonary vasculature is somewhat prominent. There is mild diffuse increased lung markings. Slightly greater than previous.. There is a posterior pleural effusion. IMPRESSION: 1. Correlate for congestive heart failure. Follow-up is recommended. Findings are worsening from 04/27
[2016-05-11 10:08] LABS: Creatine Kinase <20 U/L (30-135)
[2016-05-11 10:15] LABS: Calcium 9.1 mg/dL (8.4-10.2); Potassium 4.7 mmol/L (3.5-5.1); Total Bilirubin 0.8 mg/dL (0.2-1.3); Total Protein 6.3 g/dL (6.3-8.2)
[2016-05-11 10:22] LABS: Creatine Kinase MB <0.2 ng/mL (0.0-2.4); Troponin I 0.015 ng/mL (0.000-0.034)
--- NOTE | 2016-05-11 11:03 | ED ---
SOB HPI - General Chief Complaint: Shortness of Breath Stated Complaint: HARI Time Seen by Provider: 05/11/16 09:08 Source: patient, EMS Mode of arrival: EMS Limitations: no limitations - History of Present Illness Initial Comments: Complaining about shortness of breath and weight gain and ankle swelling, she does have a history of congestive heart failure and I am intrafibrillation she noticed some shortness of breath for the last couple days ago worse this morning she denies any chest pain no pleuritic chest pain denies any fever no chills she is not coughing up a bunch of phlegm. Denies any headaches no neck stiffness no abdominal pain no frequency urgency dysuria no signs of TIA or CVA - Related Data Home Medications Medication Instructions Recorded Confirmed Ubidecarenone [Coq-10] 100 mg PO TID 12/12/13 05/11/16 Acetaminophen Tab [Tylenol] 325 mg PO Q6H PRN 04/25/16 05/11/16 Bisacodyl [Dulcolax] 10 mg RECTAL DAILY PRN 04/25/16 05/11/16 Budesonide [Pulmicort] 0.25 mg INHALATION RT-BID 04/25/16 05/11/16 Ipratropium-Albuterol Nebulize 3 ml INHALATION RT-Q4H PRN 04/25/16 05/11/16 [Duoneb 0.5 mg-3 mg/3 ml Soln] Magnesium Hydroxide [Milk of 2,400 mg PO DAILY PRN 04/25/16 05/11/16 Magnesia] Na Phos,M-B/Na Phos,Di-Ba [Fleet 133 ml RECTAL DAILY PRN 04/25/16 05/11/16 Adult] Vitamins A and D [Vitamin A & D] 1 applic TOPICAL DAILY 04/25/16 05/11/16 Furosemide [Lasix] 20 mg PO DAILY 05/11/16 05/11/16 predniSONE See Taper PO DAILY 05/11/16 05/11/16 Previous Rx's Medication Instructions Recorded Apixaban [Eliquis] 2.5 mg PO BID tablet 05/01/16 Aspirin 81 mg PO DAILY chew 05/01/16 Famotidine [Pepcid] 20 mg PO DAILY tab 05/01/16 Furosemide [Lasix] 40 mg PO DAILY #0 01/30/17 Ipratropium-Albuterol Nebulize 3 ml INHALATION RT-QID ampul.neb 05/01/16 [Duoneb 0.5 mg-3 mg/3 ml Soln] Potassium Chloride ER [K-Dur 10] 10 meq PO DAILY tab.er.prt 05/01/16 Verapamil Sr [Isoptin Sr] 240 mg PO BID tablet.er 05/01/16 Allergies Allergy/AdvReac Type Severity Reaction Status Date / Time codeine Allergy Unknown Verified 05/11/16 09:05 hydromorphone HCl Allergy Unknown Verified 05/11/16 09:05 [From Dilaudid] Iodinated Contrast Media - Allergy Unknown Verified 05/11/16 09:05 Oral and iodine Allergy Swelling Verified 05/11/16 09:05 metolazone Allergy Unknown Verified 05/11/16 09:05 morphine Allergy Dyspnea Verified 05/11/16 09:05 shellfish derived Allergy Unknown Verified 05/11/16 09:05 Review of Systems ROS Statement: Those systems with pertinent positive or pertinent negative responses have been documented in the HPI. ROS Other: All systems not noted in ROS Statement are negative. Past Medical History Past Medical History: Atrial Fibrillation, Atrial Flutter, Heart Failure, COPD, Hypertension, Osteoarthritis (OA), Pneumonia Additional Past Medical History / Comment(s): Chronic hypercapnic respiratory failure on home O2, bronchits,( ecoli in sputum 9-12-14 per micro). 3 liters . per son and pt"no narcotics-pt does'nt tolerate them well" History of Any Multi-Drug Resistant Organisms: VRE Date of last positivie culture/infection: 04/25/16 MDRO Source:: Urine Past Surgical History: No Surgical Hx Reported Additional Past Surgical History / Comment(s): Bilateral cataract removal and intraocular lens implants, right breast lumpectomy noncancerous. Additional Past Anesthesia/Blood Transfusion Reaction / Comment(s): No blood, anesthesia before when " teeth were pulled" per family Past Psychological History: No Psychological Hx Reported Additional Psychological History / Comment(s): currently at [facility]. Smoking Status: Former smoker Past Alcohol Use History: Occasional Additional Past Alcohol Use History / Comment(s): started smokin g at age 15, smoked 2 ppd, quit 2005. Patient denies medical marijuana, marijuana, street drug or alcohol use. Patient lives at home and her son lives with her. There is a cat in the home. She worked in the past in the office setting. Past Drug Use History: None Reported - Past Family History Mother Family Medical History: Cancer Additional Family Medical History / Comment(s): breast cancer Father Family Medical History: Liver Disease Additional Family Medical History / Comment(s): cirrhosis caused from alcoholism per patient statement General Exam - General Exam Comments Initial Comments: General: The patient is awake and alert, in no distress, and does not appear acutely ill. Skin: Skin is warm and dry and no rashes or lesions are noted. Eye: Pupils are equal, round and reactive to light, extra-ocular movements are intact; there is normal conjunctiva bilaterally. Ears, nose, mouth and throat: There are moist mucous membranes and no oral lesions. Neck: The neck is supple, there is no tenderness or JVD. Cardiovascular: There is atrial fibrillation at this point rate is well- controlled ventricular rate is 79 Respiratory: To auscultation bilateral, sounds consistent with a CHF Gastrointestinal: Soft, non-distended, non-tender abdomen without masses or organomegaly noted. There is no rebound or guarding present. Bowel sounds are unremarkable. Back: There is no tenderness to palpation in the midline. There is no obvious deformity. Musculoskeletal: Noticed 3+ edema bilaterally around the distal lower extremities Neurological: CN II-XII intact, Cranial nerves III through XII are intact. There are no obvious motor or sensory deficits. Coordination appears grossly intact. Speech is normal. Psychiatric: Cooperative, appropriate mood & affect, normal judgment. Limitations: no limitations Course Vital Signs 05/11/16 05/11/16 05/11/16 08:59 10:15 10:25 Temperature 97.0 F L Pulse Rate 97 74 85 Respiratory 18 Rate Blood Pressure 125/63 O2 Sat by Pulse 91 L Oximetry 05/11/16 05/11/16 10:42 11:36 Temperature Pulse Rate 98 91 Respiratory 18 20 Rate Blood Pressure 116/59 121/62 O2 Sat by Pulse 91 L 90 L Oximetry EKG EKG is a defibrillation ventricular rate is 79 QRS duration is 84 QT/QTc is 380/435, degree of this EKG does not reveal any ST elevation or ST depression, this EKG was compared with the old EKG that was from [facility] [place] April 26 and she still had A. fib back to Medical Decision Making - Lab Data Result diagrams: 05/11/16 09:00 05/11/16 09:00 Lab Results 05/11/16 05/11/16 05/11/16 Range/Units 09:00 09:00 09:00 WBC 13.5 H (3.8-10.6) k/uL RBC 4.32 (3.80-5.40) m/uL Hgb 12.0 (11.4-16.0) gm/dL Hct 41.0 (34.0-46.0) % MCV 94.8 (80.0-100.0) fL MCH 27.7 (25.0-35.0) pg MCHC 29.3 L (31.0-37.0) g/dL RDW 17.1 H (11.5-15.5) % Plt Count 224 (150-450) k/uL Neutrophils % 89 % Lymphocytes % 4 % Monocytes % 5 % Eosinophils % 0 % Basophils % 0 % Neutrophils # 12.0 H (1.3-7.7) k/uL Lymphocytes # 0.6 L (1.0-4.8) k/uL Monocytes # 0.7 (0-1.0) k/uL Eosinophils # 0.1 (0-0.7) k/uL Basophils # 0.0 (0-0.2) k/uL Hypochromasia Marked Anisocytosis Slight PT (9.0-12.0) sec INR (<1.1) APTT (22.0-30.0) sec Sodium 142 (137-145) mmol/L Potassium 4.7 (3.5-5.1) mmol/L Chloride 93 L (98-107) mmol/L Carbon Dioxide 38 H (22-30) mmol/L Anion Gap 11 mmol/L BUN 64 H (7-17) mg/dL Creatinine 1.51 H (0.52-1.04) mg/dL Est GFR (MDRD) Af Amer 41 (>60 ml/min/1.73 sqM) Est GFR (MDRD) Non-Af 34 (>60 ml/min/1.73 sqM) Glucose 136 H (74-99) mg/dL Calcium 9.1 (8.4-10.2) mg/dL Total Bilirubin 0.8 (0.2-1.3) mg/dL AST 16 (14-36) U/L ALT 38 (9-52) U/L Alkaline Phosphatase 71 (38-126) U/L Total Creatine Kinase <20 L (30-135) U/L CK-MB (CK-2) <0.2 (0.0-2.4) ng/mL CK-MB (CK-2) Rel Index Troponin I 0.015 (0.000-0.034) ng/mL NT-Pro-B Natriuret Pep pg/mL Total Protein 6.3 (6.3-8.2) g/dL Albumin 3.6 (3.5-5.0) g/dL 05/11/16 05/11/16 Range/Units 09:00 09:00 WBC (3.8-10.6) k/uL RBC (3.80-5.40) m/uL Hgb (11.4-16.0) gm/dL Hct (34.0-46.0) % MCV (80.0-100.0) fL MCH (25.0-35.0) pg MCHC (31.0-37.0) g/dL RDW (11.5-15.5) % Plt Count (150-450) k/uL Neutrophils % % Lymphocytes % % Monocytes % % Eosinophils % % Basophils % % Neutrophils # (1.3-7.7) k/uL Lymphocytes # (1.0-4.8) k/uL Monocytes # (0-1.0) k/uL Eosinophils # (0-0.7) k/uL Basophils # (0-0.2) k/uL Hypochromasia Anisocytosis PT 11.0 (9.0-12.0) sec INR 1.1 (<1.1) APTT 22.5 (22.0-30.0) sec Sodium (137-145) mmol/L Potassium (3.5-5.1) mmol/L Chloride (98-107) mmol/L Carbon Dioxide (22-30) mmol/L Anion Gap mmol/L BUN (7-17) mg/dL Creatinine (0.52-1.04) mg/dL Est GFR (MDRD) Af Amer (>60 ml/min/1.73 sqM) Est GFR (MDRD) Non-Af (>60 ml/min/1.73 sqM) Glucose (74-99) mg/dL Calcium (8.4-10.2) mg/dL Total Bilirubin (0.2-1.3) mg/dL AST (14-36) U/L ALT (9-52) U/L Alkaline Phosphatase (38-126) U/L Total Creatine Kinase (30-135) U/L CK-MB (CK-2) (0.0-2.4) ng/mL CK-MB (CK-2) Rel Index Troponin I (0.000-0.034) ng/mL NT-Pro-B Natriuret Pep 4880 pg/mL Total Protein (6.3-8.2) g/dL Albumin (3.5-5.0) g/dL Disposition Clinical Impression: Atrial fibrillation, Congestive heart failure, Pedal edema Disposition: ADMITTED IP TO THIS HOSP Condition: Good Referrals: Rodolfo Padron MD [Primary Care Provider] - 1-2 days
[2016-05-11] MEDS ORDERED: NA PHOS,M-B/NA PHOS,DI-BA 133 ML ENEMA RECTAL PRN (11:50)
[2016-05-11] MEDS ORDERED: BISACODYL 10 MG SUPP RECTAL PRN (11:50)
[2016-05-11] MEDS ORDERED: MAGNESIUM HYDROXIDE 2,400 MG/10 ML CUP PO PRN (11:50)
[2016-05-11] MEDS ORDERED: IPRATROPIUM-ALBUTEROL 3 ML NEB INHALATION PRN (11:50)
[2016-05-11 13:10] LABS: Glucose,Whole Blood 217 mg/dL (75-99)
[2016-05-11] MEDS ORDERED: NON-FORMULARY DRUG (Ubidecarenone [Coq-10] 100 MG) PO SCH (16:00)
[2016-05-11] MEDS: IPRATROPIUM-ALBUTEROL 3 ML NEB INHALATION SCH ×3 (16:33→20:43)
[2016-05-11] MEDS: NITROGLYCERIN OINT 1 INCH/GM PACKET TOPICAL SCH ×3 (17:44→20:18)
--- NOTE | 2016-05-11 18:41 | HP ---
DATE OF ADMISSION: 05/11/2016 The patient came in with complaints of shortness of breath, orthopnea, denied any ( ) PND, bilateral ankle swelling and atrial fibrillation. The patient has gained about nine pounds ( ) showed normal ejection fraction. Patient may have diastolic dysfunction. The patient may have right sided heart failure. The patient is morbidly obese. ( ) sleep apnea. The patient is presently, heart rate has come down a little bit now and the patient was given one dose of IV Lasix. I started her on 60 mg of IV Lasix. Patient does have elevated JVD as well as ( ). The patient only has mild to moderate pulmonary hypertension on the echocardiogram. Previous echocardiogram had normal ejection fraction. The patient gained about 7 pounds in one day she says. Patient is compliant with her diet she says. Patient denied any fevers. Patient denied any sputum production. Chest x-ray, although I am not able to open up the chest x-ray, that is pulmonary edema and denied any dysuria, nausea, vomiting, abdominal pain. Home medications include: 1. Acetaminophen. 2. ( ). 3. Pulmicort. 4. Ipratropium. 5. ( ). 6. Lasix 40 mg p.o. daily ( ) 60 mg p.o. daily. 7. Apixaban 2.5 mg p.o. b.i.d. 8. Aspirin. 9. Famotidine. 10. Albuterol. 11. Ipratropium. 12. Potassium chloride. 13. Verapamil. REVIEW OF SYSTEMS: CONSTITUTIONAL: No fever, no malaise, no fatigue. HEENT: No recent visual problems or hearing problems. Denied any sore throat. CARDIOVASCULAR: As described in HPI. PULMONARY: No shortness of breath, no cough, no hemoptysis. GASTROINTESTINAL: No diarrhea, no nausea, no vomiting, no abdominal pain. Normoactive bowel sounds. NEUROLOGICAL: No headaches, no weakness, no numbness. HEMATOLOGICAL: Denies any bleeding or petechiae. GENITOURINARY: Denies any burning micturition, frequency, or urgency. MUSCULOSKELETAL/RHEUMATOLOGICAL: Denies any joint pain, swelling, or any muscle pain. ENDOCRINE: Denies any polyuria or polydipsia. The rest of the 14 point review of systems is negative. PAST MEDICAL HISTORY: Significant for atrial fibrillation, probable diastolic dysfunction, ( ) COPD, hypertension, osteoarthritis, morbid obesity. Past medical history also includes COPD, oxygen dependent, used about 3 L oxygen at home. PAST SURGICAL HISTORY: The patient had bilateral cataract removal. SOCIAL HISTORY: Former smoker and smokes 2 packs per day ( ) 2005. Denied any alcohol abuse or drug abuse. FAMILY HISTORY: Mother had breast cancer. Father had liver disease and cirrhosis. PHYSICAL EXAMINATION: VITAL SIGNS: Temperature 97.0. Patient is afebrile. Pulse of 97, respiratory rate of 18, blood pressure is 125/63, saturating at 90% on 3 liters of oxygen by nasal cannula. GENERAL: Patient is morbidly obese. Alert and oriented x3. HEENT: Pupils are round and equally reacting to light. EOMI. No scleral icterus. No conjunctival pallor. Normocephalic, atraumatic. No pharyngeal erythema. No thyromegaly. CARDIOVASCULAR: S1 and S2 present. I am not able to appreciate any JVD because of her neck contour. I did not even appreciate any S3. Patient is tachycardic. PULMONARY: Chest is clear to auscultation, no wheezing or crackles. ABDOMEN: Soft, nontender, nondistended, normoactive bowel sounds. No palpable organomegaly. MUSCULOSKELETAL: No joint swelling or deformity. EXTREMITIES: Patient has bilateral lower extremity extensive edema. The patient appears to have chronic venous stasis from venous insufficiency from morbid obesity. NEUROLOGICAL: Gross neurological examination did not reveal any focal deficits. SKIN: No rashes. LABORATORY DATA: CBC, and BMP are abnormal for elevated WBC count of 13,500. Creatinine of 1.51. Lately her baseline creatinine is around 1.32 or 0.4. It used to be around about a year ago, it was normal at around 0.8, BUN of 64. Patient has elevated BNP of around 4000. Chest x-ray showed pulmonary edema. ASSESSMENT AND PLAN: 1. Dyspnea, ( ) acute hypoxic respiratory failure which is secondary to possible congestive heart failure acute exacerbation, ( ) the patient did gain about seven pounds and we will watch her kidney function closely. Baseline kidney function is worse to start with. 2. Atrial fibrillation with rapid ventricular rate, heart rate is ( ) home medications ( ). 3. Morbid obesity, with ( ). 4. Mild to moderate pulmonary hypertension. 5. Possible acute renal failure secondary to prerenal azotemia from congestive heart failure itself I believe. 6. Chronic obstructive pulmonary disease with minimal exacerbation. 7. Acute on chronic hypercapnic respiratory failure secondary to chronic obstructive pulmonary disease exacerbation. As of now I do not believe patient will need systemic steroids. Patient will be continued on inhalation steroids. I do not believe the patient has significant bronchitis either requiring antibiotics 8. Bilateral chronic venostasis without any cellulitis and chronic venostasis dermatosis. Continue with compression socks. The patient's primary care physician is Dr. Varinder Elliott.
[2016-05-11] MEDS: FUROSEMIDE 10 MG/ML 10 ML VIAL IV SCH (20:17)
[2016-05-11] MEDS: APIXABAN 2.5 MG TABLET PO SCH (20:17)
[2016-05-11] MEDS: VERAPAMIL SR 240 MG TABLET.ER PO SCH (20:18)
[2016-05-11] MEDS: ACETAMINOPHEN TAB 325 MG TAB PO PRN (20:22)
[2016-05-11] MEDS: BUDESONIDE 0.25 MG/2 ML NEBU INHALATION SCH (20:43)
[2016-05-12 06:05] LABS: Calcium 8.9 mg/dL (8.4-10.2); Potassium 4.5 mmol/L (3.5-5.1)
[2016-05-12] MEDS: IPRATROPIUM-ALBUTEROL 3 ML NEB INHALATION SCH ×4 (08:40→20:14)
[2016-05-12] MEDS: BUDESONIDE 0.25 MG/2 ML NEBU INHALATION SCH ×2 (08:41→20:14)
[2016-05-12] MEDS ORDERED: FUROSEMIDE 20 MG TAB PO SCH (09:00)
[2016-05-12] MEDS ORDERED: FUROSEMIDE 40 MG TAB PO SCH (09:00)
[2016-05-12] MEDS ORDERED: VITAMINS A AND D TOPICAL SCH (09:00)
[2016-05-12] MEDS: POTASSIUM CHLORIDE ER 10 MEQ TAB.ER.PRT PO SCH (09:33)
[2016-05-12] MEDS: VERAPAMIL SR 240 MG TABLET.ER PO SCH ×2 (09:33→21:15)
[2016-05-12] MEDS: FAMOTIDINE 20 MG TAB PO SCH (09:33)
[2016-05-12] MEDS: predniSONE 10 MG TAB PO SCH (09:33)
[2016-05-12] MEDS: NITROGLYCERIN OINT 1 INCH/GM PACKET TOPICAL SCH ×4 (09:33→21:15)
[2016-05-12] MEDS: ACETAMINOPHEN TAB 325 MG TAB PO PRN (09:33)
[2016-05-12] MEDS: APIXABAN 2.5 MG TABLET PO SCH ×2 (09:34→21:15)
[2016-05-12] MEDS: FUROSEMIDE 10 MG/ML 10 ML VIAL IV SCH ×2 (09:34→21:15)
[2016-05-12] MEDS: ASPIRIN 81 MG CHEW PO SCH (09:37)
--- NOTE | 2016-05-12 12:05 | CONS ---
DATE OF CONSULTATION: Daniela is a 75-year-old lady who was admitted to hospital with shortness of breath and Cardiology had been consulted for the same. She has complex medical history including diastolic heart failure, COPD, chronic atrial fibrillation, mild to moderate pulmonary hypertension. She was in the hospital was going to rehab, where she had significant weight gain and was brought back in with acute exacerbation of chronic diastolic heart failure. Her dyspnea could also be due to an element of COPD exacerbation. The patient has chronic A. fib and a heart rate was somewhat poorly controlled on her initial presentation. At the time of my evaluation this morning, she is doing better, is diuresing well with intravenous diuretics. Denies chest pain. Is sitting up, has some ankle edema. Past medical history is significant for chronic A. fib, diastolic heart failure, COPD, hypertension, arthritis, morbid obesity. Medications include ipratropium, K-Dur, verapamil, Pulmicort, Lasix, apixaban, aspirin, famotidine. Family history is negative for premature coronary artery disease. Social history is significant for smoking. There is no history of EtOH abuse or drug abuse. Family history is significant for cirrhosis of the liver. REVIEW OF SYSTEMS: HEENT: Unremarkable. CARDIAC: As described above. RESPIRATORY: As described above. GI: Negative. GENITOURINARY: Negative. ALLERGY/IMMUNOLOGY: Negative. SKIN: Negative. MUSCULOSKELETAL: Negative. ENDOCRINE: Negative. HEMATOLOGIC: Negative. DERMATOLOGY: Negative. CONSTITUTIONAL: Negative. ONCOLOGICAL: Negative. On exam patient is comfortable at rest. Vital signs are stable. There is no jugular venous distention. Chest exam reveals good air entry bilaterally. Heart exam reveals first and second heart sounds. Occasional rhonchi. There are no crackles. Heart exam reveals first and second heart sounds. No gallop. Abdomen is soft. Exam of the extremities reveals 1+ edema. Peripheral pulses are felt. Labs show that the BUN is 67, creatinine is 1.5. Potassium is 4.5. Hemoglobin is 12. An EKG showed atrial fibrillation with controlled ventricular rate. Chest x-ray showed mild pulmonary venous congestion. Labs showed that the BNP is elevated at 4880. ASSESSMENT: 1. Acute exacerbation of chronic heart failure. 2. Chronic obstructive pulmonary disease. 3. Hypertension. 4. Chronic atrial fibrillation. PLAN: The patient is doing better. I am going to continue her on the nebulizers, IV Lasix and Eliquis along with the verapamil that she is currently on. She is stable. Hopefully, she can be discharged home tomorrow.
[2016-05-12 13:36] VITALS: BMI 41.2
--- NOTE | 2016-05-12 18:42 | PN ---
Patient is 75-year-old female admitted with congestive heart failure exacerbation and patient mostly has right-sided heart failure and patient is on IV Lasix with improvement in her symptoms. Patient still has quite a bit of pedal edema, which I believe is mostly chronic venous stasis. The patient is having good urine output. Patient's atrial fibrillation is presently rate controlled. REVIEW OF SYSTEMS: CARDIOVASCULAR: No chest pain, no orthopnea, no PND, no palpitations. PULMONARY: As described in HPI. GASTROINTESTINAL: No diarrhea, nausea or vomiting. No abdominal pain. Normoactive bowel sounds. NEUROLOGIC: No headaches, no weakness, no numbness. Medications were reviewed. PHYSICAL EXAMINATION: VITAL SIGNS: Temperature 97.6, pulse of 92, respiratory rate 20, blood pressure is 141/69, saturating at 90% on 3 liters of O2 nasal cannula. The patient does use 3 liters at home. GENERAL: The patient is alert and oriented x3, not in any acute distress. Well developed, well nourished. HEENT: Pupils are round and equally reacting to light. EOMI. No scleral icterus. No conjunctival pallor. Normocephalic, atraumatic. No pharyngeal erythema. No thyromegaly. CARDIOVASCULAR: S1 and S2 present. I did not appreciate any elevated JVD. PULMONARY: Chest is clear to auscultation, no wheezing or crackles. ABDOMEN: Soft, nontender, nondistended, normoactive bowel sounds. No palpable organomegaly. MUSCULOSKELETAL: No joint swelling or deformity. EXTREMITIES: The patient does have extensive bilateral pedal edema. NEUROLOGICAL: Gross neurological examination did not reveal any focal deficits. SKIN: No rashes. LABORATORY DATA: CBC and CMP are abnormal for elevated bicarbonate of 41 secondary to diuresis. Bun of 67, went up from 64. Creatinine stayed stable at 1.5. ASSESSMENT AND PLAN: 1. Dyspnea and acute hypoxic respiratory failure secondary to congestive heart failure, possible chronic diastolic dysfunction with acute exacerbation. 2. Possible right-sided heart failure. 3. Atrial fibrillation presently rate controlled at this point of time. 4. Morbid obesity. 5. Chronic obstructive pulmonary disease with minimal exacerbation. Patient's respiratory status is almost at her baseline. 6. Acute on chronic hypercapnic respiratory failure secondary to chronic obstructive pulmonary disease. 7. Bilateral chronic venostasis without any cellulitis. Patient does have chronic venostasis dermatosis. 8. Continue with IV diuretic therapy. Continue with Verapamil. Continue with the apixaban. Possibility of discharge tomorrow back to subacute rehab.
[2016-05-13 06:30] LABS: Calcium 9.1 mg/dL (8.4-10.2); Potassium 4.3 mmol/L (3.5-5.1)
[2016-05-13] MEDS: BUDESONIDE 0.25 MG/2 ML NEBU INHALATION SCH ×2 (08:29→19:20)
[2016-05-13] MEDS: IPRATROPIUM-ALBUTEROL 3 ML NEB INHALATION SCH ×4 (08:29→19:20)
[2016-05-13] MEDS: ASPIRIN 81 MG CHEW PO SCH (08:50)
[2016-05-13] MEDS: POTASSIUM CHLORIDE ER 10 MEQ TAB.ER.PRT PO SCH (08:50)
[2016-05-13] MEDS: VERAPAMIL SR 240 MG TABLET.ER PO SCH ×2 (08:50→21:22)
[2016-05-13] MEDS: APIXABAN 2.5 MG TABLET PO SCH ×2 (08:50→21:22)
[2016-05-13] MEDS: FAMOTIDINE 20 MG TAB PO SCH (08:50)
[2016-05-13] MEDS: ACETAMINOPHEN TAB 325 MG TAB PO PRN ×2 (08:51→15:55)
[2016-05-13] MEDS: predniSONE 10 MG TAB PO SCH (08:51)
[2016-05-13] MEDS: NITROGLYCERIN OINT 1 INCH/GM PACKET TOPICAL SCH ×4 (08:55→21:22)
--- NOTE | 2016-05-13 09:35 | P.PN ---
Subjective Principal diagnosis: CHF This is a pleasant 75-year-old female with history of severe COPD and home O2 use, nicotine dependence, hypertension, she was most recently seen here in the hospital last , echo performed in December revealed normal left ventricular systolic function. Patient also has history of paroxysmal atrial fibrillation. She again presents to the hospital with symptoms of progressively worsening shortness of breath. EKG on admission showed atrial fibrillation with a moderately rapid ventricular response. Patient was initiated on IV Lasix, she diuresed well, her weight is down 2 kg. Potassium this morning 4.3, BUN 72, creatinine 1.3. Blood pressure this morning 120/60, heart rate in the 80s. Patient was sitting up in the chair this morning at the time of my examination, overall she states she's feeling much better, breathing has been improved significantly. Continues to have bilateral peripheral edema although improved from her admission here. Objective - Vital Signs Vital signs: Vital Signs Temp 97.6 F 05/13/16 04:00 Pulse 105 H 05/13/16 09:02 Resp 18 05/13/16 09:02 BP 119/59 05/13/16 09:02 Pulse Ox 95 05/13/16 04:00 Intake & Output 05/12/16 05/13/16 05/13/16 18:59 06:59 18:59 Intake Total 855 240 Output Total 425 1300 Balance 430 -1300 240 Weight 108.9 kg 106.9 kg Intake: Oral 855 240 Output: Urine 425 1300 Other: Voiding Method Toilet Toilet # Voids 1 1 - Exam PHYSICAL EXAMINATION: HEENT: Head is atraumatic, normocephalic. Pupils equal, round. Neck is supple. There is no elevated jugular venous pressure. HEART EXAMINATION: S1 and S2 irregular irregular a systolic murmur is heard. CHEST EXAMINATION: Lungs reveal scattered wheezing throughout. ABDOMEN: Soft, obese, nontender. Bowel sounds are heard. No organomegaly noted. EXTREMITIES: 2+ peripheral pulses with 1+ evidence of peripheral edema and no calf tenderness noted. NEUROLOGIC patient is awake, alert and oriented -3. . - Labs CBC & Chem 7: 05/11/16 09:00 05/13/16 05:32 Labs: Abnormal Lab Results - Last 24 Hours (Table) 05/13/16 Range/Units 05:32 Chloride 91 L (98-107) mmol/L Carbon Dioxide 39 H (22-30) mmol/L BUN 72 H (7-17) mg/dL Creatinine 1.32 H (0.52-1.04) mg/dL Glucose 111 H (74-99) mg/dL Assessment and Plan (1) Diastolic CHF, acute on chronic Status: Acute (2) Chronic a-fib Status: Acute (3) Renal insufficiency Status: Acute (4) Hypertension Status: Acute (5) Acute exacerbation of chronic obstructive airways disease Status: Acute Plan: From cardiology's perspective, we'll recommend to continue Eliquis along with verapamil. Patient continues to be on IV Lasix, creatinine this morning 1.3. Recommend continue IV Lasix for 24 hours, possibly transferred back to rehab tomorrow if stable. DNP note has been reviewed, I agree with a documented findings and plan of care. Patient was seen and examined.
--- NOTE | 2016-05-13 13:37 | ECHOF ---
Referral Reason:chf, afib MEASUREMENTS -------- HEIGHT: 162.6 cm WEIGHT: 106.6 kg BP: 119/59 IVSd: 1.4 cm (0.6 - 1.1) LVIDd: 4.8 cm (3.9 - 5.3) LVPWd: 1.4 cm (0.6 - 1.1) LVIDs: 3.3 cm LA Diam: 3.8 cm (2.7 - 3.8) RVIDd: 3.4 cm (< 3.3) Ao Diam: 3.1 cm (2.0 - 3.7) EPSS: 1.3 cm RAP: 15.00 mmHg RVSP: 57.29 mmHg MV EF SLOPE: 87.73 mm/s (70 - 150) MV EXCURSION: 13.64 mm (> 18.000) FINDINGS -------- Atrial fibrillation. This was a technically difficult study with suboptimal views. The left ventricular size is normal. There is moderate concentric left ventricular hypertrophy. Overall left ventricular systolic function is moderately impaired with, an EF between 35 - 40 %. The right ventricle is mildly enlarged. The left atrium is normal in size. The right atrium is normal in size. 1.5mg of Definity was utilized for enhancement of images The aortic valve was not well visualized. The mitral valve leaflets are mildly thickened. Mild mitral annular calcification present. Mild mitral regurgitation is present. Mild tricuspid regurgitation present. There is severe pulmonary hypertension. The right ventricular systolic pressure, as measured by Doppler, is 57.29mmHg. The pulmonic valve was not well visualized. The aortic root size is normal. The inferior vena cava is dilated with no significant inspiratory collapse which is consistent estimated right atrial pressure of >15 mmHg. There is no pericardial effusion. CONCLUSIONS -------- 1. Atrial fibrillation. 2. The aortic valve was not well visualized. 3. The mitral valve leaflets are mildly thickened. 4. Mild mitral annular calcification present. 5. Mild mitral regurgitation is present. 6. Mild tricuspid regurgitation present. 7. There is severe pulmonary hypertension. 8. The right ventricular systolic pressure, as measured by Doppler, is 57.29mmHg. 9. The pulmonic valve was not well visualized. 10. The aortic root size is normal. 11. The inferior vena cava is dilated with no significant inspiratory collapse which is consistent estimated right atrial pressure of >15 mmHg. 12. This was a technically difficult study with suboptimal views. 13. There is no pericardial effusion. 14. The left ventricular size is normal. 15. There is moderate concentric left ventricular hypertrophy. 16. Overall left ventricular systolic function is moderately impaired with, an EF between 35 - 40 %. 17. The right ventricle is mildly enlarged. 18. The left atrium is normal in size. 19. The right atrium is normal in size. 20. 1.5mg of Definity was utilized for enhancement of images BOTTOM SPRAYER: Antoinette Laws RDCS
[2016-05-13] MEDS: FUROSEMIDE 10 MG/ML 10 ML VIAL IV SCH ×2 (15:42→21:22)
--- NOTE | 2016-05-13 16:27 | PN ---
The patient is a 75-year-old admitted for congestive heart failure and patient also has moderate pulmonary hypertension with possible right-sided heart failure and patient is still not patient euvolemic. The patient is in the ( ) side. Patient has repeated ejection fraction of 35% to 40%. Patient both has diastolic dysfunction as well as systolic dysfunction as well as right-sided heart failure and pulmonary hypertension. REVIEW OF SYSTEMS: CARDIOVASCULAR: No chest pain, no orthopnea, no PND, no palpitations. PULMONARY: Denied any shortness of breath. No cough or hemoptysis. GASTROINTESTINAL: No diarrhea, nausea or vomiting. No abdominal pain. Normoactive bowel sounds. NEUROLOGIC: No headaches, no weakness, no numbness. EXTREMITIES: Complaints of continued lower extremity edema. Mediations were reviewed. PHYSICAL EXAMINATION: VITAL SIGNS: Temperature 97.6, pulse 84, respiratory rate of 18, blood pressure is 119/59, saturating at 95% on 3L of O2 nasal cannula. GENERAL: The patient is alert and oriented x3, not in any acute distress. Well developed, well nourished. HEENT: Pupils are round and equally reacting to light. EOMI. No scleral icterus. No conjunctival pallor. Normocephalic, atraumatic. No pharyngeal erythema. No thyromegaly. CARDIOVASCULAR: S1 and S2 present. I am not able to appreciate any JVD because of on account of no murmurs, rubs, or gallops were appreciated. Patient is rate controlled at this point of time. PULMONARY: Chest is clear to auscultation, no wheezing or crackles. ABDOMEN: Soft, nontender, nondistended, normoactive bowel sounds. No palpable organomegaly. MUSCULOSKELETAL: No joint swelling or deformity. EXTREMITIES: Patient has extensive bilateral pedal edema. NEUROLOGICAL: Gross neurological examination did not reveal any focal deficits. SKIN: No rashes. LABORATORY DATA: CBC, basic metabolic profile is abnormal for elevated BUN of 72, creatinine of 1.32, bicarbonate of 39, improved creatinine. ASSESSMENT AND PLAN: 1. Dyspnea and acute hypoxic respiratory failure secondary to congestive heart failure, chronic diastolic dysfunction as well as systolic dysfunction. Patient has significant right-sided heart failure as well as moderate pulmonary hypertension. 2. Atrial fibrillation, rate controlled at this point of time. 3. Morbid obesity. 4. Chronic obstructive pulmonary disease with minimal exacerbation. 5. Acute on chronic hypercapnic respiratory failure secondary to chronic obstructive pulmonary disease. 6. Bilateral chronic venostasis dermatosis. Plan is to continue with diuretic therapy. Continue on verapamil. Continue to monitor I's and O's, kidney function, electrolytes.
[2016-05-14 07:27] LABS: Calcium 8.9 mg/dL (8.4-10.2); Potassium 4.3 mmol/L (3.5-5.1)
[2016-05-14] MEDS: IPRATROPIUM-ALBUTEROL 3 ML NEB INHALATION SCH ×4 (07:58→20:35)
[2016-05-14] MEDS: ASPIRIN 81 MG CHEW PO SCH (07:58)
[2016-05-14] MEDS: BUDESONIDE 0.25 MG/2 ML NEBU INHALATION SCH ×2 (07:58→20:35)
[2016-05-14] MEDS: FAMOTIDINE 20 MG TAB PO SCH (07:59)
[2016-05-14] MEDS: ACETAMINOPHEN TAB 325 MG TAB PO PRN ×2 (07:59→15:13)
[2016-05-14] MEDS: NITROGLYCERIN OINT 1 INCH/GM PACKET TOPICAL SCH ×4 (07:59→22:11)
[2016-05-14] MEDS: FUROSEMIDE 10 MG/ML 10 ML VIAL IV SCH ×2 (08:00→22:11)
[2016-05-14] MEDS: VERAPAMIL SR 240 MG TABLET.ER PO SCH ×2 (08:00→22:11)
[2016-05-14] MEDS: POTASSIUM CHLORIDE ER 10 MEQ TAB.ER.PRT PO SCH (08:01)
[2016-05-14] MEDS: APIXABAN 2.5 MG TABLET PO SCH ×2 (08:01→22:11)
[2016-05-14] MEDS: predniSONE 10 MG TAB PO SCH (08:01)
--- NOTE | 2016-05-14 11:21 | PN ---
Daniela is a 75-year-old lady with chronic atrial fibrillation who is admitted to hospital with acute exacerbation of chronic systolic heart failure. She was doing well, but since yesterday has gained weight and currently on Lasix 60 mg IV q.12. She has prerenal azotemia with BUN of 68 and creatinine of 1.4. On exam, comfortable at rest. Heart rate is around 90 to 100 beats per minute, blood pressure is 111/60, respirations 18. Chest exam reveals diminished air entry at the bases. Heart exam reveals first and second heart sounds. No murmur. Exam of extremities reveals bilateral lower 1 to 2+ pitting edema. This is improved since she came in. Labs show that the potassium is 4.3. BUN is 68. Creatinine is 1.4. Hemoglobin is 12. ASSESSMENT: 1. Acute exacerbation of chronic systolic heart failure. 2. Chronic atrial fibrillation. PLAN: I am going to continue the IV Lasix, continue the Eliquis and Isoptin that she is currently on.
--- NOTE | 2016-05-14 17:32 | PN ---
The patient is a 75-year-old admitted for congestive heart failure and patient also has moderate pulmonary hypertension with possible right-sided heart failure and patient is still not patient euvolemic. The patient is in the ( ) side. Patient has repeated ejection fraction of 35% to 40%. Patient both has diastolic dysfunction as well as systolic dysfunction as well as right-sided heart failure and pulmonary hypertension. REVIEW OF SYSTEMS: CARDIOVASCULAR: No chest pain, no orthopnea, no PND, no palpitations. PULMONARY: Denied any shortness of breath. No cough or hemoptysis. GASTROINTESTINAL: No diarrhea, nausea or vomiting. No abdominal pain. Normoactive bowel sounds. NEUROLOGIC: No headaches, no weakness, no numbness. EXTREMITIES: Complaints of continued lower extremity edema. Mediations were reviewed. PHYSICAL EXAMINATION: Temperature 97.5, pulse of 100, respiratory rate of 18, blood pressure is 112/69, saturating at 99% on 3L of O2 nasal cannula. GENERAL: The patient is alert and oriented x3, not in any acute distress. Well developed, well nourished. HEENT: Pupils are round and equally reacting to light. EOMI. No scleral icterus. No conjunctival pallor. Normocephalic, atraumatic. No pharyngeal erythema. No thyromegaly. CARDIOVASCULAR: S1 and S2 present. I am not able to appreciate any JVD because of on account of no murmurs, rubs, or gallops were appreciated. Patient is rate controlled at this point of time. PULMONARY: Chest is clear to auscultation, no wheezing or crackles. ABDOMEN: Soft, nontender, nondistended, normoactive bowel sounds. No palpable organomegaly. MUSCULOSKELETAL: No joint swelling or deformity. EXTREMITIES: Pedal edema improved compared to yesterday . NEUROLOGICAL: Gross neurological examination did not reveal any focal deficits. SKIN: No rashes. LABORATORY DATA: Patient's BUN improved, creatinine fairly stable from 1.3 to 1.4. ASSESSMENT AND PLAN: 1. Dyspnea and acute hypoxic respiratory failure secondary to congestive heart failure, chronic diastolic dysfunction as well as systolic dysfunction. Patient has significant right-sided heart failure as well as moderate pulmonary hypertension. 2. Atrial fibrillation, rate controlled at this point of time. 3. Morbid obesity. 4. Chronic obstructive pulmonary disease with minimal exacerbation. 5. Acute on chronic hypercapnic respiratory failure secondary to chronic obstructive pulmonary disease. 6. Bilateral chronic venostasis dermatosis. Plan is to continue with diuretic therapy. Continue on verapamil. Continue to monitor I's and O's, kidney function, electrolytes.
[2016-05-15 07:19] LABS: Calcium 8.9 mg/dL (8.4-10.2)
[2016-05-15] MEDS: POTASSIUM CHLORIDE ER 10 MEQ TAB.ER.PRT PO SCH (08:49)
[2016-05-15] MEDS: ASPIRIN 81 MG CHEW PO SCH (08:49)
[2016-05-15] MEDS: APIXABAN 2.5 MG TABLET PO SCH ×2 (08:49→22:09)
[2016-05-15] MEDS: predniSONE 10 MG TAB PO SCH (08:49)
[2016-05-15] MEDS: VERAPAMIL SR 240 MG TABLET.ER PO SCH ×2 (08:49→22:07)
[2016-05-15] MEDS: FAMOTIDINE 20 MG TAB PO SCH (08:49)
[2016-05-15] MEDS: NITROGLYCERIN OINT 1 INCH/GM PACKET TOPICAL SCH ×2 (08:49→12:41)
[2016-05-15] MEDS: FUROSEMIDE 10 MG/ML 10 ML VIAL IV SCH (08:50)
[2016-05-15] MEDS: BUDESONIDE 0.25 MG/2 ML NEBU INHALATION SCH ×2 (08:56→19:15)
[2016-05-15] MEDS: IPRATROPIUM-ALBUTEROL 3 ML NEB INHALATION SCH ×4 (08:56→19:15)
--- NOTE | 2016-05-15 10:27 | P.PN ---
Subjective Principal diagnosis: CHF This is a pleasant 75-year-old female with history of severe COPD and home O2 use, nicotine dependence, hypertension, echo performed in December revealed normal left ventricular systolic function. Patient also has history of paroxysmal atrial fibrillation. She again presents to the hospital with symptoms of progressively worsening shortness of breath. EKG on admission showed atrial fibrillation with a moderately rapid ventricular response. Patient was initiated on IV Lasix, she diuresed well, her weight is down 1 kg. Potassium this morning 4.0, BUN 64, creatinine 1.4. Blood pressure this morning 110/60, heart rate in the 90s. Patient sitting up in the chair this morning at the time of my examination, overall she states she's feeling much better, breathing has been improved significantly. Continues to have bilateral peripheral edema although improved from her admission here.Continues to be on IV Lasix. Objective - Vital Signs Vital signs: Vital Signs Temp 97.6 F 05/15/16 04:00 Pulse 82 05/15/16 08:56 Resp 20 05/15/16 08:00 BP 109/57 05/15/16 08:00 Pulse Ox 95 05/15/16 08:00 Intake & Output 05/14/16 05/15/16 05/15/16 18:59 06:59 18:59 Intake Total 360 Output Total 1000 1150 375 Balance -1000 -1150 -15 Weight 109.1 kg 108.9 kg Intake: Oral 360 Output: Urine 1000 1150 375 Other: Voiding Method Toilet Toilet # Voids 0 # Bowel Movements 0 - Exam PHYSICAL EXAMINATION: HEENT: Head is atraumatic, normocephalic. Pupils equal, round. Neck is supple. There is no elevated jugular venous pressure. HEART EXAMINATION: S1 and S2 irregular irregular a systolic murmur is heard. CHEST EXAMINATION: Lungs are clear to auscultation, mild diminished air entry to the bases. ABDOMEN: Soft, obese, nontender. Bowel sounds are heard. No organomegaly noted. EXTREMITIES: 2+ peripheral pulses with 1+ evidence of peripheral edema , right leg greater than the left , no calf tenderness noted. NEUROLOGIC patient is awake, alert and oriented -3. . - Labs CBC & Chem 7: 05/11/16 09:00 05/15/16 05:42 Labs: Abnormal Lab Results - Last 24 Hours (Table) 02/13/17 Range/Units 05:42 Chloride 89 L (98-107) mmol/L Carbon Dioxide 41 H* (22-30) mmol/L BUN 64 H (7-17) mg/dL Creatinine 1.42 H (0.52-1.04) mg/dL Assessment and Plan (1) Diastolic CHF, acute on chronic Status: Acute (2) Chronic a-fib Status: Acute (3) Renal insufficiency Status: Acute (4) Hypertension Status: Acute (5) Acute exacerbation of chronic obstructive airways disease Status: Acute Plan: From cardiology's perspective, we'll recommend to continue Eliquis along with verapamil. Patient continues to be on IV Lasix, creatinine this morning 1.4. We will repeat a chest x-ray today. We have also advised that the patient have bilateral Jaspreet wraps to assist with the peripheral edema. DNP note has been reviewed, I agree with a documented findings and plan of care. Patient was seen and examined.
--- NOTE | 2016-05-15 19:05 | XR ---
EXAMINATION TYPE: XR chest 2V DATE OF EXAM: 05/15/2016 6:55 PM COMPARISON: 05/11/2016 HISTORY: Short of breath TECHNIQUE: Frontal and lateral views of the chest are obtained. FINDINGS: Heart is enlarged. There is pulmonary vascular congestion. There is pulmonary edema. There are chest leads. Thoracic aorta is atheromatous. There is blunting of costophrenic angles. IMPRESSION: Congestive heart failure with pleural effusions. Pulmonary edema is the same or worse th an last exam.
[2016-05-15] MEDS ORDERED: FUROSEMIDE 250 MG in SODIUM CHLORIDE 0.9% 225 ML IVP SCH (21:30)
--- NOTE | 2016-05-15 21:42 | PN ---
DATE OF SERVICE: 05/15/2016 PRESENTING COMPLAINT: Short of breath. INTERVAL HISTORY: This is a patient who presented with both left- and right-sided heart failure. Feels a bit tired on nasal cannula. Sitting up on a chair. Has got Jaspreet wraps on the lower extremities. Did tolerate some diet. Took a few steps. Review of systems done for constitutional, cardiovascular, GI, pulmonary; relevant findings as above. Current medications are reviewed that include DuoNeb, Eliquis, aspirin, IV Lasix. Telemetry shows atrial fibrillation rate controlled. On examination, temperature 97.6, pulse 98, respiration 20, blood pressure 138/66, pulse ox 95% on 3 L. GENERAL APPEARANCE: Sitting up in a chair. EYES: Pupils equal. Conjunctivae normal. NECK: JVD unable to assess. Mass not palpable. RESPIRATORY: Effort increased. LUNGS: Diminished breath sounds. CARDIOVASCULAR: Heart sounds irregular. Lower extremity Jaspreet wraps present. ABDOMEN: Distended, soft. Liver and spleen not palpable. PSYCHIATRY: Alert and oriented x3. Mood and affect normal. INVESTIGATIONS: Potassium 4, bicarb 41. BUN 64, creatinine 1.42. Chest x-ray reviewed; still shows evidence of pulmonary edema with pleural effusion. ASSESSMENT: 1. Acute congestive heart failure from systolic dysfunction; ejection fraction 35% to 40%, probably from underlying hypertension and also diastolic dysfunction. 2. Hypertensive heart disease. 3. Severe secondary pulmonary hypertension due to congestive heart failure. 4. Persistent atrial fibrillation, rate controlled. 5. Primary osteoarthritis of multiple joints, bilateral. 6. Essential hypertension. 7. Chronic hypoxic respiratory failure, on 3 liters oxygen at home. 8. Chronic obstructive sleep apnea. Patient does not use CPAP. 9. Acute respiratory failure, hypoxic, present on admission, from congestive heart failure. 10. Morbid obesity; body mass index of 41.2. 11. Chronic obstructive pulmonary disease in an ex-smoker. 12. Congestive heart failure, uncontrolled. PLAN: Patient has been slowly getting better, but in view of underlying renal failure, probably patient needs a higher dose of Lasix to diurese more. Will try the patient on Lasix drip. Strict I&O.
[2016-05-16] MEDS: NITROGLYCERIN OINT 1 INCH/GM PACKET TOPICAL SCH (08:09)
[2016-05-16] MEDS: FAMOTIDINE 20 MG TAB PO SCH (09:03)
[2016-05-16] MEDS: VERAPAMIL SR 240 MG TABLET.ER PO SCH ×2 (09:04→22:28)
[2016-05-16] MEDS: ASPIRIN 81 MG CHEW PO SCH (09:04)
[2016-05-16] MEDS: POTASSIUM CHLORIDE ER 10 MEQ TAB.ER.PRT PO SCH (09:04)
[2016-05-16] MEDS: APIXABAN 2.5 MG TABLET PO SCH ×2 (09:04→22:28)
[2016-05-16] MEDS: predniSONE 10 MG TAB PO SCH (09:04)
[2016-05-16] MEDS: BUDESONIDE 0.25 MG/2 ML NEBU INHALATION SCH ×2 (09:13→19:10)
[2016-05-16] MEDS: IPRATROPIUM-ALBUTEROL 3 ML NEB INHALATION SCH ×4 (09:13→19:10)
--- NOTE | 2016-05-16 15:00 | P.PN ---
Subjective Principal diagnosis: CHF This is a pleasant 75-year-old female with history of severe COPD and home O2 use, nicotine dependence, hypertension, echo performed in December revealed normal left ventricular systolic function. Patient also has history of paroxysmal atrial fibrillation. She again presents to the hospital with symptoms of progressively worsening shortness of breath. EKG on admission showed atrial fibrillation with a moderately rapid ventricular response. Patient was initiated on IV Lasix drip yesterday, continued to diurese well. Potassium this morning 4.0, BUN 62, creatinine 1.3. Blood pressure this morning 116/60, heart rate in the 70s. Patient sitting up in the chair this morning at the time of my examination, bilateral Jaspreet wraps in place. Edema seems less today. Objective - Vital Signs Vital signs: Vital Signs Temp 97.6 F 05/15/16 04:00 Pulse 78 05/16/16 12:31 Resp 18 05/16/16 11:46 BP 115/56 05/16/16 11:46 Pulse Ox 94 L 05/16/16 11:46 Intake & Output 05/15/16 05/16/16 05/16/16 18:59 06:59 18:59 Intake Total 956 720 150 Output Total 1625 1000 1000 Balance -285 -763 -850 Weight 108.9 kg 110.5 kg Intake: Oral 956 720 150 Output: Urine 1625 1000 1000 Other: Voiding Method Toilet Toilet # Voids 0 1 # Bowel Movements 1 1 - Exam PHYSICAL EXAMINATION: HEENT: Head is atraumatic, normocephalic. Pupils equal, round. Neck is supple. There is no elevated jugular venous pressure. HEART EXAMINATION: S1 and S2 irregular irregular a systolic murmur is heard. CHEST EXAMINATION: Lungs are clear to auscultation, mild diminished air entry to the bases. ABDOMEN: Soft, obese, nontender. Bowel sounds are heard. No organomegaly noted. EXTREMITIES: 2+ peripheral pulses with 1+ evidence of peripheral edema , right leg greater than the left , no calf tenderness noted. Jaspreet wraps in place NEUROLOGIC patient is awake, alert and oriented -3. . - Labs CBC & Chem 7: 05/11/16 09:00 05/16/16 06:21 Labs: Abnormal Lab Results - Last 24 Hours (Table) 05/16/16 Range/Units 06:21 Chloride 90 L (98-107) mmol/L Carbon Dioxide 41 H* (22-30) mmol/L BUN 62 H (7-17) mg/dL Creatinine 1.31 H (0.52-1.04) mg/dL Glucose 108 H (74-99) mg/dL Assessment and Plan (1) Diastolic CHF, acute on chronic Status: Acute (2) Chronic a-fib Status: Acute (3) Renal insufficiency Status: Acute (4) Hypertension Status: Acute (5) Acute exacerbation of chronic obstructive airways disease Status: Acute Plan: From cardiology's perspective, we'll recommend to continue Eliquis along with verapamil. Continue IV Lasix drip and initiate IV push Lasix every 8 hourly. DNP note has been reviewed, I agree with a documented findings and plan of care. Patient was seen and examined.
[2016-05-16] MEDS: FUROSEMIDE 10 MG/ML 4 ML VIAL IV SCH (16:20)
[2016-05-16] MEDS: acetaZOLAMIDE 250 MG TAB PO SCH ×2 (16:20→22:29)
--- NOTE | 2016-05-16 17:58 | PN ---
DATE OF SERVICE: 05/16/2016 PRESENTING COMPLAINT: Short of breath. INTERVAL HISTORY: This is a patient presented with both left and right sided heart failure. I did put the patient on Lasix drip last night to which she diuresed well. Some decreased edema is present. The patient still has significant edema. The patient's POA is in the room. She states her breathing is a shade better. Sitting up in chair. Review of systems done for constitutional, cardiovascular, GI, pulmonary; relevant findings as above. Current medications are reviewed and include IV Lasix bolus being switched back today. On examination, afebrile, pulse 56, respiration 18, blood pressure 109/58, pulse ox 98% on 3 liters. GENERAL APPEARANCE: Sitting up on a chair, not in distress. EYES: Pupils equal were within normal. NECK: JVD unable to assess. Respiratory effort increased. Lungs diminished breath sounds. CARDIOVASCULAR: First and second seconds normal. Edema present. ABDOMEN: Distended, soft. Liver and spleen not palpable. PSYCHIATRY: Alert and oriented x3. Mood and affect normal. INVESTIGATIONS: Potassium 4.0, bicarb 41. BUN 62, creatinine 1.31. I's and O's show to be negative fluid balance. ASSESSMENT: 1. Acute on chronic congestive heart failure exacerbation versus systolic and diastolic dysfunction; ejection fraction 35% to 40%, underlying hypertension, slow to respond. 2. Hypertensive heart disease. 3. Severe secondary pulmonary hypertension due to congestive heart failure. 4. Persistent atrial fibrillation, rate controlled. 5. Primary osteoarthritis multiple joints, bilaterally. 6. Essential hypertension. 7. Chronic hypoxic respiratory failure, on 3 liters oxygen at home. 8. Chronic obstructive pulmonary disease, the patient does not use CPAP. 9. Acute respiratory failure, hypoxic present on admission from congestive heart failure. 10. Moderate obesity, body mass index 41.2. 11. Chronic obstructive pulmonary disease in an ex-smoker. 12. Metabolic alkalosis. PLAN: At this point, patient will be switched per cardiology to Lasix 40 q8h. Spoke to patient's POA. He is very keen about patient getting no allopathic supplement. I did tell him that it was not my training to give the supplements and I cannot really prescribe those. Did speak to him at length about the same. We will also add Diamox and also add hydrochlorothiazide for ( ) diuresis. We will follow.
[2016-05-16] MEDS: ACETAMINOPHEN TAB 325 MG TAB PO PRN (20:37)
[2016-05-17] MEDS: FUROSEMIDE 10 MG/ML 4 ML VIAL IV SCH ×2 (00:15→10:14)
[2016-05-17 06:57] LABS: Calcium 8.7 mg/dL (8.4-10.2)
[2016-05-17] MEDS: IPRATROPIUM-ALBUTEROL 3 ML NEB INHALATION SCH ×3 (08:23→15:12)
[2016-05-17] MEDS: BUDESONIDE 0.25 MG/2 ML NEBU INHALATION SCH (08:23)
[2016-05-17] MEDS: acetaZOLAMIDE 250 MG TAB PO SCH (10:09)
[2016-05-17] MEDS: VERAPAMIL SR 240 MG TABLET.ER PO SCH (10:10)
[2016-05-17] MEDS: POTASSIUM CHLORIDE ER 10 MEQ TAB.ER.PRT PO SCH (10:10)
[2016-05-17] MEDS: ASPIRIN 81 MG CHEW PO SCH (10:10)
[2016-05-17] MEDS: FAMOTIDINE 20 MG TAB PO SCH (10:10)
[2016-05-17] MEDS: predniSONE 10 MG TAB PO SCH (10:10)
[2016-05-17] MEDS: APIXABAN 2.5 MG TABLET PO SCH (10:10)
--- NOTE | 2016-05-17 10:32 | P.PN ---
Subjective Principal diagnosis: CHF This is a pleasant 75-year-old female with history of severe COPD and home O2 use, nicotine dependence, hypertension, echo performed in December revealed normal left ventricular systolic function. Patient also has history of paroxysmal atrial fibrillation. She again presents to the hospital with symptoms of progressively worsening shortness of breath. EKG on admission showed atrial fibrillation with a moderately rapid ventricular response. Patient was initiated on IV Lasix drip yesterday, continued to diurese well. Potassium this morning 4.0, BUN 49, creatinine 1.4. Blood pressure this morning 100/55, heart rate in the 70s. Patient sitting up in the chair this morning at the time of my examination, bilateral Jaspreet wraps in place. Edema continues to improve. Objective - Vital Signs Vital signs: Vital Signs Temp 97.4 F L 05/17/16 08:00 Pulse 80 05/17/16 08:43 Resp 18 05/17/16 08:00 BP 100/55 05/17/16 07:52 Pulse Ox 93 L 05/17/16 07:52 Intake & Output 05/16/16 05/17/16 05/17/16 18:59 06:59 18:59 Intake Total 520 120 Output Total 1450 2400 Balance -930 -2400 120 Weight 109 kg Intake: Oral 520 120 Output: Urine 1450 2400 Other: Voiding Method Toilet # Voids 1 0 # Bowel Movements 1 - Exam PHYSICAL EXAMINATION: HEENT: Head is atraumatic, normocephalic. Pupils equal, round. Neck is supple. There is no elevated jugular venous pressure. HEART EXAMINATION: S1 and S2 irregular irregular a systolic murmur is heard. CHEST EXAMINATION: Lungs are clear to auscultation, mild diminished air entry to the bases. ABDOMEN: Soft, obese, nontender. Bowel sounds are heard. No organomegaly noted. EXTREMITIES: 2+ peripheral pulses with evidence of improvement in peripheral edema , right leg greater than the left , no calf tenderness noted. Jaspreet wraps in place NEUROLOGIC patient is awake, alert and oriented -3. . - Labs CBC & Chem 7: 05/11/16 09:00 05/17/16 05:26 Labs: Abnormal Lab Results - Last 24 Hours (Table) 05/17/16 Range/Units 05:26 Chloride 89 L (98-107) mmol/L Carbon Dioxide 44 H* (22-30) mmol/L BUN 49 H (7-17) mg/dL Creatinine 1.46 H (0.52-1.04) mg/dL Assessment and Plan (1) Diastolic CHF, acute on chronic Status: Acute (2) Chronic a-fib Status: Acute (3) Renal insufficiency Status: Acute (4) Hypertension Status: Acute (5) Acute exacerbation of chronic obstructive airways disease Status: Acute Plan: From cardiology's perspective, we'll recommend to continue Eliquis along with verapamil. His continue IV Lasix and start the patient on oral diuretics. She may be able to be transferred to ECF once cleared by her primary. DNP note has been reviewed, I agree with a documented findings and plan of care. Patient was seen and examined.
--- NOTE | 2016-05-17 12:47 | CDI ---
In responding to this query, please exercise your independent professional judgment. The [facility] Coding Staff and Clinical Documentation Specialists appreciate your assistance in clarifying documentation, maintaining compliance with coding guidelines, accurately documenting patients condition and capturing severity of illness. The fact that a question is asked does not imply that any particular answer is desired or expected. Communication forms are a method of clarifying documentation and are not made part of the Legal Health Record. Thank you in advance for your clarification. Last Revision, January 2015 Christopher Mcleod [address] [place] [address] Documentation Clarification Form Date: 05/17/2016 12:30:00 PM From: Ana Moore RN, CCDS Admit Date: 05/11/2016 11:46:00 AM Patient Name: Daniela Gomez Visit Number: [id number] Dr. Gary Hollis History/Risk Factors: Acute on chronic systolic chf uncontrolled- Pt D/C 05/01/16 with CHF, HTN CVD, persistent atrial fib, HTN Clinical Indicators: Patient presents with a BUN: 64/67/72/68/64/62/49 CR: 1.51/1.5/1.32/1.4/1.42/1.31/1.46 GFR: 34/39/37/26/40/35 04/25/16 Patients baseline BUN: 24/26/39/50 CR: 1.28/1.3/1.37/1.8 GFR: 41/40/38/28 Cardiology Progress Notes: "renal insufficiency." Treatment: Consults: Cardiology IVF: none ordered Diamox 250mg PO BID Lasix 40mg IVP Q hrs, Lasix 60 mg IVP q 12 then changed to 40 PO BID, In order to capture the severity of condition, please clarify if the condition signifies: Acute renal failure Please specify (if known): Cortical, Medullary, or Tubular Necrosis? Acute kidney injury Acute on chronic renal failure Chronic renal failure, please stage Chronic kidney disease (CKD) and please stage Stage 1 GFR >90 Stage 2 GFR 60-89 Stage 3 GFR 30-59 Stage 4 GFR 15-29 Stage 5 GFR <15 ESRD Unable to determine Other, specify Please document in your progress notes and discharge summary in order to capture severity of illness and risk of mortality. Include clinical findings that support your diagnosis. FYI: Press F11 to launch patient chart. Place X here if this finding has no clinical significance, is not applicable or if you are not able to provide any additional documentation. DOUGLAS
--- NOTE | 2016-05-17 15:30 | DS ---
DATE OF ADMISSION: 05/11/2016 DATE OF DISCHARGE: 05/17/2016 FINAL DIAGNOSES: 1. Acute on chronic congestive heart failure exacerbation from systolic and diastolic dysfunction. Ejection fraction 35% to 40%, from underlying hypertensive heart disease. 2. Hypertensive heart disease. 3. Severe secondary pulmonary hypertension from congestive heart failure. 4. Persistent atrial fibrillation, rate controlled. 5. Primary osteoarthritis in multiple joints, bilaterally. 6. Essential hypertension. 7. Chronic hypoxic respiratory failure on 3 L of oxygen at home. 8. Chronic obstructive pulmonary disease. 9. Acute respiratory failure, hypoxic on admission from congestive heart failure. 10. Moderate obesity, body mass index of 41.2. 11. Chronic obstructive pulmonary disease in an ex-smoker. 12. Metabolic alkalosis. 13. Chronic kidney disease, stage III from hypertensive nephrosclerosis. HOSPITAL COURSE: This patient presented with CHF exacerbation. Diuresed successfully. Patient is put on a few liters of fluid. Patient's BUN and creatinine are 49 and 1.46. CONSULTATION: Dr. Raleigh Oneal from Cardiology. On examination: LUNGS: Decreased breath sounds. CARDIOVASCULAR: Heart sounds irregular. Edema is present. DISCHARGE MEDICATIONS: 1. CoQ10 one hundred mg p.o. t.i.d. 2. Tylenol 325 p.o. q.6 p.r.n. 3. Dulcolax 10 mg rectal daily p.r.n. 4. Pulmicort 0.25 b.i.d. 5. DuoNeb q.4 p.r.n. 6. Milk of magnesia 2400 mg p.o. daily p.r.n. 7. Adult [id number] mL rectal daily p.r.n. 8. Vitamin A and D topical daily. 9. Eliquis 2.5 p.o. b.i.d. 10. Aspirin 81 mg p.o. daily. 11. Pepcid 20 mg p.o. daily. 12. DuoNeb q.i.d. 13. Potassium 10 mEq p.o. daily. 14. Isoptin SR 240 mg p.o. b.i.d. 15. Lasix 25 p.o. b.i.d. 16. Diamox 250 mg p.o. b.i.d. 17. Aldactone 25 p.o. daily. DISPOSITION: [facility]. Follow with Dr. Padron and follow with Dr. Oneal in 2 weeks. LABS: CBC, BMP, magnesium in 5 days. Discharge planning more than 35 minutes.
[2016-05-17 15:59] VITALS: BP 130/59; PULSE 68; RESP 18; TEMP 97.1
[2016-05-17] MEDS ORDERED: FUROSEMIDE 40 MG TAB PO SCH (16:00)
== END 2016-05-17 16:36 | DRG 291 ==
LOC: EC 08:46 → 6SEL 11:46
PROVIDERS: ADMIT Hospitalist; ATTEND Hospitalist
DX: I13.0 Hypertensive heart and chronic kidney disease with heart failure and stage 1 through stage 4 chronic kidney disease, or unspecified chronic kidney disease (principal); I50.43 Acute on chronic combined systolic (congestive) and diastolic (congestive) heart failure; J96.21 Acute and chronic respiratory failure with hypoxia; J96.22 Acute and chronic respiratory failure with hypercapnia; E87.3 Alkalosis; I48.1 Persistent atrial fibrillation; J44.1 Chronic obstructive pulmonary disease with (acute) exacerbation; I48.92 Unspecified atrial flutter; E66.01 Morbid (severe) obesity due to excess calories; I27.2 Other secondary pulmonary hypertension; G47.33 Obstructive sleep apnea (adult) (pediatric); I48.0 Paroxysmal atrial fibrillation; I48.2 Chronic atrial fibrillation; M15.9 Polyosteoarthritis, unspecified; N18.3 Chronic kidney disease, stage 3 (moderate); L98.8 Other specified disorders of the skin and subcutaneous tissue; I87.8 Other specified disorders of veins; Z79.82 Long term (current) use of aspirin; Z68.41 Body mass index [BMI] 40.0-44.9, adult; Z79.01 Long term (current) use of anticoagulants; Z79.899 Other long term (current) drug therapy; Z88.5 Allergy status to narcotic agent; Z88.8 Allergy status to other drugs, medicaments and biological substances; Z91.041 Radiographic dye allergy status; Z87.891 Personal history of nicotine dependence; Z99.81 Dependence on supplemental oxygen
CPT/HCPCS: 36415; 71020; 80048; 80053; 82550; 82553; 83880; 84484; 85025; 85610; 85730; 93005; 93306; 94640; 94760; 96374; 96375; 99285